=== PATIENT | male | born 1965 | race Caucasian/White ===

== ENCOUNTER 2025-03-26 10:39 | Inpatient (IN) | payer OTHER, SELFPAY ==
[2025-03-26] VITALS (14 sets, daily range): BP systolic 142–189; BP diastolic 100–150; PULSE 2–133
--- NOTE | 2025-03-26 06:54 | ED.GENMED ---
History of Present Illness
General
Chief Complaint: Breathing Problem
Time Seen by Provider: 03/26/25 06:48
History of Present Illness
History of Present Illness:
59-year-old male without any known past medical history, however admits to not being seen by a doctor for several years, presenting for difficulty breathing. Reports symptoms for the past 2 weeks, which worsened last evening. Does report some mild
congestion and cough. No smoking history, however no formal diagnosis of COPD. Reports some chest discomfort with coughing, however no chest pain presently. Denies abdominal pain or vomiting. Denies ever having these symptoms in the past.
Denies fever or sick contacts. Denies any history of PE or recent travel. Does note some sputum production with cough. Denies additional acute medical complaints
Past History
Past History
ED Past Medical History: None
Social History
Tobacco: Smoker
Personal:
Living: with family
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
Phy Exam
Physical Exam
Physical Exam:
General: Well-appearing, no clinical signs of dehydration, nontoxic and in no acute distress
HEENT: protecting airway
Neck: appears supple
CV: tachycardic, regular rhythm
Resp: Tachypneic, increased work of breathing, lungs clear to auscultation bilaterally
Abd: Soft and non-distended, no tenderness to palpation\\
Extremities: No deformities, no swelling
Neuro: alert, no focal neurologic deficit
: deferred
Rectal: deferred
Psych: Normal affect
Skin: Intact
Scores
Heart Failure Risk
Heart Failure Risk Score: Yes
History of Stroke or TIA: No
History of intubation for respiratory distress: No
Heart rate on ED arrival >/= 110: Yes
SaO2 <90% on arrival on room air: No
HR >/=110 during 3min walk test (or too ill to perform test): Yes
ECG has acute ischemic changes: No
Urea >/=12mmol/L (BUN 33.6mg/dL): No
Serum CO2>/=35mmol/L: No
Troponin I or T elevated to IN Level (0.4mg/dL): No
NT-proBNP >/=5,000ng/L (5,000pg/ml): No
HF Risk Score: 2
Admission Status: MEDIUM RISK 9.2% Consider observation or discharge to home with homecare & f/u visit to PCP/Process Lead, or SNF for treatment
Course
Orders/Labs/Results
Orders:
Orders
03/26/25 06:49
Electrocardiogram (*1) Urgent
Reason for Study: Other
Other Reason for Exam: Respiratory Distress
Cardiac Monitoring- Treatment ONCE
EKG- Treatment ONCE
IV Insert/Care/Rem.- Treatment PRN
03/26/25 06:52
CT Chest PE Study Urgent
Comment:
Reason For Exam: tachypneic, tachycardic, hypoxic
03/26/25 06:57
Complete Blood Count/With Diff Urgent
Comprehensive Metabolic Panel Urgent
Glycohemoglobin (HgbA1c) Urgent
NT-proBNP Urgent
TSH Reflex To Free T4 Urgent
Comment: ADD ON
Troponin I Urgent
Venous Blood Gas Urgent
%Oxygen/Room Air: 21
03/26/25 08:34
Furosemide [Lasix] 40 mg IV ONCE ONE
03/26/25 08:40
Bipap [RESP] Urgent
Patient to use own unit?: No
Inspiratory Pressure (cm H2O): 12
Expiratory Pressure (cm H2O): 5
03/26/25 Lunch
Cholesterol Lowering
At Your Request: Full Participation
Fluid Restriction: 1440 mL/day (48 oz)
Cholesterol Lowering: Sodium, 2 Gram
03/26/25 10:21
Echo 2D MMode Color/Doppler Routine
Reason for Study: new heart failure
Consult Cardiology [CARDIOLOGY CONSULT] Routine
Consulting Provider: Garcia Sanchez
Was physician already notified: Yes
03/26/25 10:24
Admit/Transfer Patient As Directed
Co-Sign Provider:
Level of Care: Inpatient admission
Assign to:: IMU- Intermediate Care
Physician / Group: Melia Wilson
Diagnosis: heart failure
Reason for Hospitalization: heart failure
Expected length of stay greater than two midnights?: Yes
ELOS- Estimated Length of Stay in days: 3
I certify the patient meets the requirements for IP care: Yes
03/26/25 10:25
Code Status As Directed
Resuscitation Status: Full Code
Nitroglycerin Ointment [Nitro-Bid] 0.5 inch TOPICAL Q6
PRN Pain Medication Management As Directed
May give lesser potent ordered pain med per pt: Yes
preference::
Protocol:: Medication orders for pain may be administered in a
manner that supports deferring to patient preference
when the pt is:
- Requesting an ordered lesser potent pain medication.
Least to most potent pain medications are defined
as: acetaminophen < NSAID < tramadol < opioids
(morphine, oxycodone, hydromorphone).
- Requesting a lesser dose of the same medication IF
ORDERED.
- Requesting a less intrusive route of administration
if both routes are prescribed by the provider (PO <
IV).
03/26/25 10:28
Add On- LAB Routine
Tests Added?: TSH with reflex to T4
03/26/25 12:20
HF DIETARY CONSULT Routine
HF EDUCATOR CONSULT Routine
Comment:
Activity As Directed
Activity Level: As Tolerated
Intake/ Output As Directed
Frequency: Per unit guidelines
Patient Education As Directed
Type: CHF folder
Comment: give on admission. Document in Interdisciplinary Education record
Sleep Apnea Assessment by RN As Directed
Comment:
Physician Instructions:
Vital Signs As Directed
Frequency: Other
Additional Instructions:: Q12 or per unit guidelines if more frequent.
Weight As Directed
Frequency: Daily
Type of Scale: Standing Scale
Comment: Daily morning weight. If unable to stand, use balanced bed scale.
Weight As Directed
Frequency: Once
Type of Scale: Standing Scale
Comment: Upon Admission. If unable to stand, use balanced bed scale.
Pulse Ox/cont/shift [RESP] Routine
Quantity: 1
Special Instructions: Daily pulse oximetry at rest. If greater than 92% at rest also obtain pulse oximetry
while ambulating as tolerated.
DX Deep Vein Thrombosis Video Routine
03/26/25 13:14
PSA, Total - Screen Routine
Troponin I Q6H
03/26/25 16:00
Furosemide [Lasix] 40 mg IV BID AT 0800,1600
03/26/25 19:00
Troponin I Q6H
03/26/25 20:00
Heparin 5,000 units SC Q12
03/27/25 06:00
Basic Metabolic Panel IN AM
Cardiovascular Evaluation IN AM
Complete Blood Count/No Diff IN AM
Magnesium IN AM
03/28/25 06:00
Basic Metabolic Panel IN AM
03/29/25 06:00
Basic Metabolic Panel IN AM
Abnormal Lab Results
03/26/25
06:57
RBC 4.46 L 10^6/uL
(4.70-6.10)
Hgb 12.9 L g/dL
(13.0-18.0)
Hct 37.2 L %
(39.0-52.0)
Abs Immat Gran (auto) 0.1 H 10^3/uL
(0-0.05)
Immature Gran % 1.0 H %
(0-0.5)
Lymphocytes % 19.9 L %
(20.5-51.1)
VBG pO2 56 H mmHg
(30-50)
Chloride 113 H mmol/L
(98-107)
BUN 26 H mg/dl
(9-20)
Creatinine 1.5 H mg/dL
(0.7-1.3)
Glucose 139 H mg/dl
(70-99)
Hemoglobin A1c 7.0 H %
(4.0-5.6)
Alkaline Phosphatase 338 H U/L
(38-126)
Troponin I 0.071 H* ng/ml
03/26/25 06:57
03/26/25 06:57
Vital Signs
Initial and Last Documented VS:
Initial Vital Signs
Temp Pulse Resp BP Pulse Ox
97.5 F 126 24 170/117 95
03/26/25 06:42 03/26/25 06:42 03/26/25 06:42 03/26/25 06:42 03/26/25 06:42
Last Documented Vital Signs
Temp Pulse Resp BP Pulse Ox
98.1 F 118 31 164/118 95
03/26/25 12:36 03/26/25 12:58 03/26/25 12:30 03/26/25 12:58 03/26/25 13:31
MDM/Problems Addressed
MDM/Problems Addressed:
59-year-old male presenting to the emergency department for 2 weeks of shortness of breath. Vital signs on arrival significant for tachypnea and tachycardia.
On exam, patient is in mild respiratory distress, increased work of breathing. However lungs are clear to auscultation, relatively unremarkable lung examination. Given presenting vital signs, work of breathing, with lung exam, concern for possible
PE. Additional diagnostic considerations include COPD given smoking history, however no audible wheezing. Pneumonia is also consideration, does note productive cough. However presently afebrile, no focal abnormal lung sounds. ACS is a
consideration, EKG does show some lateral T wave inversions, no prior for comparison. However no STEMI criteria. Patient is also hypertensive, so aortic pathology is a consideration, however no present chest pain. Plan for laboratory analysis,
VBG, CT PE imaging. Patient placed on supplemental O2 for comfort
08:35 -patient's BNP is elevated. Troponin is also slightly elevated, suspect ischemic demand from congestive heart failure. CT is consistent with CHF, with pleural effusions. No sign of PE. Also incidental mention of bony abnormality to the
spine, concerning for metastatic disease, possibly from prostate cancer. Did discuss these results with patient, does note that he has had difficulty with urination. Patient will require admission for new onset CHF. Remains tachypneic and
tachycardic. Will start patient on BiPAP and administer Lasix.
*EKG
Interpreted by ED Provider?: Yes
EKG Intrepretation Date: 03/26/25
EKG Intrepretation Time: 06:57
Interpretation: abnormal
Heart Rate: 128
Rate: normal
Rhythm: sinus
Jenner: normal axis
Interval: normal interval
QRS Pattern: normal QRS
Ischemia: T-wave inversion
*Critical Care Note
Total Time (30-74mins, 75-104mins- exclusive of procedures): 40
comment:
The high probability of a clinically significant, sudden or life threatening deterioration of the cardiorespiratory system(s) required my full and direct attention, intervention and personal management. The aggregate critical care time was 40
minutes. This time is in addition to time spent performing reported procedures but includes the following:
[x] Data Review and interpretation
[x] Patient assessment and monitoring of vital signs
[x] Documentation
[x] Medication orders and management
ED Attending Note
-
Portions of this chart may have been created with voice recognition software.� Occasional wrong word or��sound alike� substitutions may have occurred due to the inherent limitations of voice recognition software.
Discharge Plan
Departure
Patient Disposition: Admit
Date of Disposition: 03/26/25
Time of Disposition: 08:45
Presentation/result/management discussed w/ accepting MD/DO: Hospitalist
Condition: Fair
Discharge Problem:
New onset of congestive heart failure, Breath shortness
Interventions
Interventions:
*Risk Screen - Suicide Last Done: 03/26/25 06:42
*General Assessment Last Done: 03/26/25 10:53
*Neglect/Abuse Screening Last Done: 03/26/25 10:54
*ED- Fall Risk Assessment Last Done: 03/26/25 10:53
*ED COVID-19 Vaccine History Last Done: 03/26/25 10:53
*Nursing Disposition Last Done: 03/26/25 12:28
ED- Cardiac Assessment Last Done: 03/26/25 07:05
ED- Pulmonary Assessment Last Done: 03/26/25 07:05
Discharge Date and Time
Discharge Date/Time: 03/26/25 12:28
[2025-03-26 07:08] LABS: Venous Blood Gas B.E. -3.4 mmol/L (-4 to +4); Venous Blood Gas HCO3 22.7 mmol/L (22-27); Venous Blood Gas O2 Sat % 87.2 %; Venous Blood Gas pCO2 44 mmHg (35-48); Venous Blood Gas pH 7.32 (7.32-7.43); Venous Blood Gas pO2 56 mmHg (30-50)
[2025-03-26 07:17] LABS: % Basophils 0.7 % (0-2); % Lymphocytes 19.9 % (20.5-51.1); % Neutrophils 69.4 % (42.2-75.2); Absolute Basophils 0.1 10^3/uL (0-0.2); Absolute Eosinophils 0.2 10^3/uL (0-0.7); Absolute Immature Granulocytes 0.1 10^3/uL (0-0.05); Absolute Lymphocytes 1.4 10^3/uL (1.2-3.4); Absolute Monocytes 0.4 10^3/uL (0.1-0.6); Absolute Neutrophils 4.9 10^3/uL (1.4-6.5); Hematocrit 37.2 % (39.0-52.0); Hemoglobin 12.9 g/dL (13.0-18.0); Mean Corp Hgb Conc. 34.7 g/dL (33.0-37.0); Mean Corpuscular Hgb 28.9 pg (27.0-31.0); Mean Corpuscular Volume 83.4 fL (80.0-94.0); Nucleated Red Blood Cells % 0 % (-); Platelet Count 213 10^3/uL (130-400); Red Blood Cell Count 4.46 10^6/uL (4.70-6.10); Red Cell Dist. Width 13.5 % (11.5-14.5)
[2025-03-26 07:22] LABS: ALT (SGPT) 25 U/L (0-50); AST (SGOT) 51 U/L (17-59); Albumin 4.4 g/dl (3.5-5.0); Alkaline Phosphatase 338 U/L (38-126); Blood Urea Nitrogen 26 mg/dl (9-20); Calcium 9.4 mg/dl (8.4-10.2); Carbon Dioxide 23 mmol/L (22-30); Chloride 113 mmol/L (98-107); Glucose 139 mg/dl (70-99); Potassium 4.4 mmol/L (3.5-5.1); Sodium 145 mmol/L (135-145); Total Bilirubin 0.7 mg/dl (0.2-1.3); Total Protein 7.3 g/dl (6.3-8.2); eGFR 52.97
[2025-03-26 07:37] LABS: NT-proBNP 1120 pg/ml; Troponin I 0.071 ng/ml
[2025-03-26] MEDS: LASIX 40 MG IV ×2 (08:46→16:05)
--- NOTE | 2025-03-26 09:53 | HPS.HSE ---
Addendum entered and electronically signed by Melia Wilson MD 03/26/25 10:37:
Troponin Elevation, likely non ischemic myocardial injury
-trend Troponin
TTE and Cardiology eval as below
Original Note:
Family Physician
-
Family Physician: * NONE
Chief Complaint
-
shortness of breath
History of Present Illness
Mr. Edward Cabezas is a 59 yo man without known medical history, prior tobacco use, presents to the ER with shortness of breath.
Patient states over past two weeks has had intermittent shortness of breath mainly when laying down/sleeping. No increase swelling. No increased cough/congestion. He denies chest pain.
He has already urinated a good amount and is feeling better.
No recent fevers/chills. No abdominal pain. No nausea/vomiting/diarrhea.
He takes no medications, hasn't followed up with a doctor in several years.
Medical History
Past Medical History
Past Medical History: Reports None
Past Surgical History: Reports None
Social History
Tobacco: Former Smoker (quit 8 years ago )
Alcohol: Occasional
Family History
Family History: Not pertinent
Allergies / Home Medications
Allergies reflects when Allergies were last updated in [facility].
Home Medications with original date entered in [facility]
Allergy/Medication List:
Allergies
Allergy/AdvReac Type Severity Reaction Status Date / Time
No Known Allergies Allergy Verified 03/26/25 06:42
Home Medications
No Meds [No Current Medications] 03/26/25
Review of Systems
-
History Source: Patient
A 12 point ROS was completed and negative except as noted: Yes
Physical Exam
Vital Signs
Vital Signs
Temp Pulse Resp BP Pulse Ox
97.5 F 118 18 189/125 98
03/26/25 06:42 03/26/25 09:30 03/26/25 09:30 03/26/25 09:00 03/26/25 09:30
Physical Exam
General: Other (on BiPAP, conversant and in no distress )
HEENT: PERRLA
Respiratory: No Wheezes or Rales
Cardiac: S1/S2 and Tachycardia
GI: Soft and Non Tender
Musculoskeletal: No Edema
Skin: Warm and Dry; No Rash
Neuro: AO x 3
Psych: Calm
Laboratory Results
-
03/26/25 06:57
03/26/25 06:57
Laboratory Results
Total Bilirubin 0.7 mg/dl (0.2-1.3) 03/26/25 06:57
AST 51 U/L (17-59) 03/26/25 06:57
ALT 25 U/L (0-50) 03/26/25 06:57
Alkaline Phosphatase 338 U/L (38-126) H 03/26/25 06:57
Troponin I 0.071 ng/ml H* 03/26/25 06:57
Data Reviewed
-
Diagnostic Radiology: Report Reviewed by me
Lab Data: Labs Reviewed by me
Impression/Plan
-
Mr. Edward Cabezas is a 59 yo man without known medical history, tobacco use, presents to the ER with shortness of breath.
Triage VS: T 97.5, P 126, RR 24, BP 170/117, SpO2 95%
LABS: WBC 7, Hg 12.9, PLT 213, Na 145, K+ 4.4, Cl 113, BUN 26, Cr 1.5, Glucose 139, Trop 0.071, BNP [address]
IMPRESSION:
Examination is negative for pulmonary embolism.
Bilateral pleural effusions. CT findings compatible with predominantly interstitial pulmonary edema pattern, likely on the basis of congestive heart failure.
Dense coronary artery calcifications are present. Please correlate with symptoms of and risk factors for coronary artery disease, with further workup as clinically appropriate..
CT findings highly suggestive of bony metastatic disease, and concern is raised for prostate carcinoma.
Mild to moderate changes of emphysema within the upper lungs.
EKG: sinus tach with occasionaly PVC's, j point elevation
Heart Failure Acute Exacerbation, unknown EF
-s/p Lasix 40mg IV x 1 given in the ER
-admit to IMU
-BiPAP support as needed, try to wean off later today
-continue Lasix 40mg IV BID
-nitro patch, patient hypertensive
-TTE
-add on TSH
-Cardiology consulted
MARSHAL versus CKD
-monitor renal function with diuresis
Hx tobacco use
Abnormal CT scan with finding concern for bony metastatic disease
-will order PSA on today's labs
-discussed briefly with Oncology, when respiratory status stable I will consult IR for biopsy
DVT PPx hep subQ
FULL CODE
76 minutes spent on patient care
--- NOTE | 2025-03-26 09:55 | CM ---
Addendum entered by Sandie Ryan 03/26/25 14:47:
No insurance coverage, MA pending. Spoke to [facility], cost of Entresto 24/26mg BID is $900.99 for 30 day supply, Farxiga 10mg daily is $708.99 for 30 day supply.
Original Note:
CM reviewed chart and met with pt and family bedside in ED.
Lives with , ariadna russo, 5 IVAN, BA on first floor, BR on second
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
No hx VN or SNF
Currently on BiPap.
PCP: [facility] although hasn't seen in several years
Pharmacy: [facility]
Plan: Home pending ongoing medical evaluation, watch for needs.
[2025-03-26] MEDS: NITRO-BID 0.5 INCH TOPICAL ×2 (10:50→17:49)
--- NOTE | 2025-03-26 12:06 | CON.CAR ---
Addendum entered and electronically signed by Aubrey Hess MD 03/26/25 13:14:
I saw and examined the patient.
The [employer] Supervisor's note was reviewed and I agree with the note.
Comment: 59-year-old man with no significant past medical history who presents for evaluation after several weeks of worsening dyspnea on exertion and orthopnea and was found to be in acute heart failure.
Started on BiPAP in [facility] for increased work of breathing
CTA of the chest was performed to evaluate for pulmonary embolism which identified pulmonary edema and bilateral pleural effusions
Subsequent transthoracic echocardiogram showed severely reduced left ventricular ejection fraction
At the time of my evaluation he appeared comfortable and was warm and well-perfused on exam
Recommend IV Lasix twice daily
Start Entresto for afterload reduction
Plan to add low dose Coreg tomorrow AM when more compensated
Troponin mildly elevated, would trend to peak
If troponin is rising plan to start heparin drip
But at this time suspect this is nonischemic myocardial injury troponin elevation in the setting of acute heart failure
Agree with aspirin and high intensity statin given dense coronary artery calcification seen on CT scan
Reviewed with patient and at bedside that he would likely need left and right heart catheterization next week when more euvolemic
Original Note:
Consultation
Consultation Request
Date/Time Consultation Performed: 03/26/25
Requesting Provider: Dr. Wilson
Performing Provider: Cait Atkins PA-C for Dr. Hess
Reason for Consultation: CHF
Medical History
-
Chief Complaint: SOB
History of Present Illness:
Patient is a 59-year-old male without significant past medical history, however has not seen a doctor in years who presents to the ER for evaluation of shortness of breath. He reports it has been worsening over the last 2 weeks. He reports
symptoms are worse when lying flat, but also notes when ambulating. Denies some chest discomfort with coughing, however otherwise no chest pains. Denies lower extremity edema, abdominal bloating, weight gain. Denies fevers or denies family
history of heart issues. He has never seen a heavy equipment operator/paver. On arrival he is noted to be tachypneic and tachycardic. Was placed on BiPAP. Chest CT without PE, however shows evidence of acute CHF and coronary calcifications noted. Cardiology
consulted for treatment of new heart failure.
PMH:
Former tobacco use
Past Medical History
Past Medical History: Other (in HPI)
Social History
Tobacco: Former Smoker
Alcohol: Occasional
Personal:
Living: With Family
Employment: Employed
Family History
Family History: Reviewed & Not Pertinent
Allergies / Home Medications
Allergy/AdvReac Type Severity Reaction Status Date / Time
No Known Allergies Allergy Verified 03/26/25 06:42
�Medication �Instructions �Recorded �Confirmed �Type
No Meds [No Current Medications] 03/26/25 03/26/25 History
Review of Systems
-
History Source: Patient and Family
All other systems: Negative unless noted
Physical Exam
Vital Signs
Temp Pulse Resp BP Pulse Ox
97.5 F 116 19 159/106 96
03/26/25 06:42 03/26/25 10:50 03/26/25 10:15 03/26/25 10:50 03/26/25 10:15
Lab Results
03/26/25 06:57
03/26/25 06:57
Troponin I 0.071 ng/ml H* 03/26/25 06:57
Saz-H-Euatibxkyzx Pept 1120 pg/ml 03/26/25 06:57
Physical Exam
General: No Apparent Distress, Comfortable and Other (on BIPAP)
HEENT: Normocephalic, Anicteric and Moist Mucous Membranes
Respiratory: Crackles and Non Labored Respirations
Cardiac: S1/S2, Regular Rhythm and Other (tachycardic)
GI: Soft, Non Tender, Non Distended and Normal Bowel Sounds
Musculoskeletal: No Clubbing, No Cyanosis and No Edema
Skin: Warm and Dry
Neuro: AO x 3
Impression / Plan
-
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
Assessment:
Presentation with SOB, orthopnea
Acute CHF, suspected with reduced EF
Hypertensive emergency
Sinus tachycardia
Elevated troponin
Coronary artery calcifications by chest CT
MARSHAL vs CKD
Concern for bony metastatic disease on chest CT, concern for prostate cancer
Former smoker
ECHO 03/26/25: prelim with EF 27%, awaiting official report
Plan:
- Patient presents with symptoms of shortness of breath and orthopnea over the last 2 weeks. On arrival noted to be markedly hypertensive, tachypneic, and tachycardic
- CT of the chest without evidence of PE, however did show dense coronary artery calcifications as well as bilateral pleural effusions and pulmonary edema consistent with acute congestive heart failure. proBNP 1120.
- Already improving status post dose of IV Lasix in ER. Continue diuresis
- Initially requiring BiPAP, continue and wean as able
- CHF education
- Official echo report pending, however prelim with EF 27%. Concern for ischemic cardiomyopathy with dense coronary artery calcifications noted by CT scan. Troponin 0.071, trend to peak. EKG ST with inferior T wave abnormality
- consider addition of IV heparin
- suspect will need cath early next week pending improvement in respiratory status
- presented with hypertensive emergency. currently on nitro paste. will add entresto 24/26mg BID and uptitrate as able. will assess cost to patient. add coreg 3.125mg BID tonight. eventual aldactone/sglt2 inhibitor as BP/Cr/cost allow
- check hgbA1c, CVE, TSH
- work up of bony metastatic findings on CT per primary service, concern for met prostate cancer
- d/w patient and family at bedside
Data Reviewed
-
EKG: Tracing Personally Visualized and interpreted
CT Scan: Report Reviewed by me
Labs: Labs Reviewed by me
Old Records: Reviewed
[2025-03-26] MEDS: NITRO-BID TOPICAL (12:50)
[2025-03-26] MEDS: ENTRESTO 24 MG/26 MG 1 TAB PO ×2 (12:58→20:05)
[2025-03-26] MEDS: LOW STRENGTH ASPIRIN 324 MG PO (12:59)
--- NOTE | 2025-03-26 13:30 | PTCARENOTE ---
Received patient from the ED into room 3341. Patient aaox3. Presented on BiPAP with RT but switched to midflow NC shortly after settled in bed. Pt reports feeling much better than on arrival to the ED. Pt does have fine crackles at his bases. On
monitor, pt ST, HR 110s-120s. Nitro paste on R chest administered by ED. Patient educated about heart failure, see flowsheet. Pt verbalised understanding. Pt continent of b/b, able to stand at the bedside to use urinal himself. Skin intact but has
MASD in groin. Will order desinex per nursing protocol. Ordered labs sent. Assessment, care and VS as charted.
[2025-03-26 13:58] LABS: Troponin I 0.076 ng/ml
[2025-03-26 17:44] LABS: TSH Reflex To Free T4 1.43 uIU/ml (0.47-4.68)
[2025-03-26] MEDS: LIPITOR 40 MG PO (17:48)
[2025-03-26 20:03] LABS: Troponin I 0.087 ng/ml
[2025-03-26] MEDS: DESENEX/MITRAZOL/ZEASORB 1 APPLIC TOPICAL (20:03)
[2025-03-26] MEDS: HEPARIN 5000 UNITS SC (20:04)
--- NOTE | 2025-03-26 22:07 | PTCARENOTE ---
Pt received at beginning of shift resting in bed. AAO3. Denies pain or discomfort. Slightly hypertensive BP 150-103 at beginning of shift. HR ST on CM. HR elevated further up to 130's when pt stands at bedside to use urinal. Asymptomatic. Afebrile.
RA POX 94%. Received HS meds. No edema noted. Pt denies need for Desenex to groin for MASD. Pt states he has had a 'red' groin all his life and denies pain or itch. Rest of assessment as documented. Turns self in bed. Call caraballo within reach. Will
continue to monitor.
--- NOTE | 2025-03-26 22:23 | PTCARENOTE ---
Pt placed back on 2L MF since desatting into the mid 80's while asleep. Current POX 92%.
[2025-03-27] VITALS (9 sets, daily range): BP systolic 117–142; BP diastolic 77–94; BMI 26.5; BMI 26.7
[2025-03-27] MEDS: NITRO-BID 0.5 INCH TOPICAL ×4 (00:01→17:23)
[2025-03-27 03:48] LABS: Hematocrit 36.9 % (39.0-52.0); Hemoglobin 12.8 g/dL (13.0-18.0); Mean Corp Hgb Conc. 34.7 g/dL (33.0-37.0); Mean Corpuscular Hgb 28.6 pg (27.0-31.0); Mean Corpuscular Volume 82.4 fL (80.0-94.0); Mean Platelet Volume 9.3 fL (7.4-10.4); Platelet Count 207 10^3/uL (130-400); Red Blood Cell Count 4.48 10^6/uL (4.70-6.10); Red Cell Dist. Width 13.4 % (11.5-14.5); White Blood Cell Count 7.1 10^3/uL (4.8-10.8)
[2025-03-27 04:10] LABS: Blood Urea Nitrogen 27 mg/dl (9-20); Calcium 9.4 mg/dl (8.4-10.2); Carbon Dioxide 20 mmol/L (22-30); Chloride 111 mmol/L (98-107); Estimated Creatinine Clearance 57 ml/min; Glucose 123 mg/dl (70-99); HDL Cholesterol 41 mg/dl; LDL Cholesterol, Calculated 165 mg/dl; Magnesium 1.9 mg/dl (1.6-2.3); Potassium 4.2 mmol/L (3.5-5.1); Sodium 142 mmol/L (135-145); Total Cholesterol 247 mg/dl (50-199); Triglyceride 208 mg/dl (10-149); Very Low Density Lipoprotein 41 mg/dl (0-30); eGFR 52.97
--- NOTE | 2025-03-27 08:05 | W.PN.HOSP.TC ---
Today's Communication/Plan
-
appreciate Cardiology, Oncology
Diuresis
Will need cath next week
aspirin/statin
Coreg, Entresto
OK for transfer to telemetry
Assessment / Plan
Assessment / Plan
Mr. Edward Cabezas is a 59 yo man without known medical history, tobacco use, presents to the ER with shortness of breath.
CHEST CT
IMPRESSION:
Examination is negative for pulmonary embolism.
Bilateral pleural effusions. CT findings compatible with predominantly interstitial pulmonary edema pattern, likely on the basis of congestive heart failure.
Dense coronary artery calcifications are present. Please correlate with symptoms of and risk factors for coronary artery disease, with further workup as clinically appropriate..
CT findings highly suggestive of bony metastatic disease, and concern is raised for prostate carcinoma.
Mild to moderate changes of emphysema within the upper lungs.
TTE 03/26/25
CONCLUSIONS
Left ventricle is mildly dilated. Normal wall thickness. Severely reduced
left ventricular systolic function. Global hypokinesis. LV ejection fraction
is 27% by Qureshi's method of discs. Stage III diastolic dysfunction suggestive
of restrictive filling pattern and increased filling pressures.
Normal right ventricular size and function.
Mild to moderate mitral regurgitation.
Small pericardial effusion.
Heart Failure reduced ejection fraction, acute exacerbation; new diagnosis
-BiPAP applied in ER, now off
-admitted to IMU
-O2 support as needed - patient on room air, OK for transfer to telemetry
-continue Lasix 40mg IV BID
-TTE results above
-appreciate Cardiology
-new start Coreg, Entresto
-nitro patch
Coronary artery calcifications
-new start aspirin/statin
-cath next week
MARSHAL versus CKD
-monitor renal function with diuresis
Hx tobacco use
Abnormal CT scan with finding concern for bony metastatic disease
Significantly elevated PSA
-patient aware of this diagnosis of prostate cancer
-formal Oncology consult
DVT PPx hep subQ
FULL CODE
51 minutes spent on patient care
Anticipated Discharge: > 48 hours
Subjective/Interval History
-
Date of Service: March 27, 2025
breathing much improved
Objective Data
-
Labs:
Laboratory Results
03/27/25
03:04
WBC 7.1
Hgb 12.8 L
Hct 36.9 L
Plt Count 207
Sodium 142
Potassium 4.2
Chloride 111 H
Carbon Dioxide 20 L
BUN 27 H
Creatinine 1.5 H
Glucose 123 H
Calcium 9.4
Vital Signs:
Vital Signs
Temp Pulse Resp BP Pulse Ox
98.5 F 112 20 135/91 95
03/27/25 07:22 03/27/25 06:03 03/27/25 06:00 03/27/25 06:03 03/27/25 06:00
I&O
03/26/25 03/27/25 03/28/25
06:59 06:59 06:59
Intake Total 1360 / 1360
Output Total 3425 / 3425
Balance -2064 / -2064
Review of Systems
-
History Source: Patient
All other systems: Reviewed and negative
Physical Exam
-
General: No Apparent Distress
HEENT: PERRLA
Respiratory: Clear to Auscultation; Negative Wheezes
Cardiac: Regular Rhythm and S1/S2
GI: Soft and Nontender
Musculoskeletal: No Edema
Skin: Warm and Dry; Negative Rash
Neuro: AO x 3
Psych: Calm
Data Reviewed
-
Diagnostic Radiology: Report Reviewed by me
Labs: Labs Reviewed by me
[2025-03-27] MEDS: COREG 3.125 MG PO ×2 (08:43→20:18)
[2025-03-27] MEDS: HEPARIN 5000 UNITS SC ×2 (08:44→20:23)
[2025-03-27] MEDS: LASIX 40 MG IV ×2 (08:44→16:11)
[2025-03-27] MEDS: LOW STRENGTH ASPIRIN 81 MG PO (08:44)
[2025-03-27] MEDS: DESENEX/MITRAZOL/ZEASORB TOPICAL ×2 (08:45→20:22)
[2025-03-27] MEDS: ENTRESTO 24 MG/26 MG 1 TAB PO ×2 (08:45→20:22)
--- NOTE | 2025-03-27 11:37 | W.PN.CARDCBS ---
Today's Communication / Plan
-
Continue IV diuresis
Continue goal-directed medical therapy with Entresto, beta-malcolm
Monitor renal function and urine output
Plan for ischemic evaluation tentatively 03/29/2025
Impression / Plan
-
Primary Contracts Manager: none prior to admission, initial consult Dr Aubrey Hess
Assessment:
Presentation with SOB, orthopnea
Acute CHF, suspected with reduced EF
Hypertensive emergency
Sinus tachycardia
Elevated troponin
SVT
Coronary artery calcifications by chest CT
MARSHAL vs CKD
Concern for bony metastatic disease on chest CT, concern for prostate cancer
Former smoker
ECHO 03/26/25: Mildly dilated LV, global hypokinesis EF 27%, G3DD, normal RV, mild to moderate MR, small pericardial effusion
Plan:
- Patient presents with symptoms of shortness of breath and orthopnea over the last 2 weeks. On arrival noted to be markedly hypertensive, tachypneic, and tachycardic
- CT of the chest without evidence of PE, however did show dense coronary artery calcifications as well as bilateral pleural effusions and pulmonary edema consistent with acute congestive heart failure. proBNP 1120.
- Continue IV diuresis with IV Lasix 40 mg twice daily monitor renal function and electrolytes
- Initially requiring BiPAP, off supplemental oxygen
- CHF education
- Concern for ischemic cardiomyopathy with dense coronary artery calcifications noted by CT scan. Troponin peak 0.087. EKG ST with inferior T wave abnormality, no recurrent chest pain, will need ischemic evaluation
-Tolerating entresto 24/26mg BID and uptitrate as able. will assess cost to patient. Tolerating coreg 3.125mg BID tonight. eventual aldactone/sglt2 inhibitor as BP/Cr/cost allow following completion of testing prior to discharge
- check hgbA1c, CVE, TSH
- work up of bony metastatic findings on CT per primary service, concern for met prostate cancer
- d/w patient and hospitalist
Progress Note - Contracts Manager
Subjective
Date of Service: March 27, 2025
Patient seen and examined. No acute events overnight. Patient resting comfortably in bed. Patient denies chest pain, shortness of breath, palpitations, lightheadedness, dizziness, weakness. Patient notes significant improvement in breathing.
Objective
Labs:
03/27/25 03:04
03/27/25 03:04
Labs
Hgb 12.8 g/dL (13.0-18.0) L 03/27/25 03:04
Hct 36.9 % (39.0-52.0) L 03/27/25 03:04
Plt Count 207 10^3/uL (130-400) 03/27/25 03:04
Sodium 142 mmol/L (135-145) 03/27/25 03:04
Potassium 4.2 mmol/L (3.5-5.1) 03/27/25 03:04
BUN 27 mg/dl (9-20) H 03/27/25 03:04
Creatinine 1.5 mg/dL (0.7-1.3) H 03/27/25 03:04
Glucose 123 mg/dl (70-99) H 03/27/25 03:04
Troponins
03/26/25 03/26/25 03/26/25
06:57 13:14 19:15
Troponin I 0.071 H* 0.076 H* 0.087 H*
03/27/25
01:12
Troponin I 0.080 H*
Vital Signs and I&O:
Vital Signs
Temp Pulse Resp BP Pulse Ox
98.1 F 117 20 142/92 94
03/27/25 11:02 03/27/25 08:45 03/27/25 06:00 03/27/25 08:45 03/27/25 09:32
Vital Signs
Temp Pulse Resp BP Pulse Ox
98.1 F 117 20 142/92 94
03/27/25 11:02 03/27/25 08:45 03/27/25 06:00 03/27/25 08:45 03/27/25 09:32
Intake & Output
03/25/25 03/26/25 03/27/25 03/28/25
06:59 06:59 06:59 06:59
Intake Total 1360 / 1360
Output Total 3425 / 3425 350 / 350
Balance -5 / -2065 -350 / -350
Physical Exam
Physical Exam
GENERAL: no acute distress
EYE: sclera anicteric
NECK: Supple, no JVD, no carotid bruit appreciated
ENT: normal nose, moist mucosal membranes
CARDIAC: Regular rate and rhythm, +S1/S2, no murmur, rubs, or gallops
CHEST/PULMONARY: Normal effort, faint bibasilar crackles
ABDOMEN: Soft, without focal tenderness or distention
NEUROLOGICAL: Alert and oriented x3
SKIN: Warm and dry, no rash
PSYCH: Normal and appropriate interaction.
Telemetry shows sinus rhythm; brief SVT lasting roughly 20 minutes without reported symptoms (appears long RP by telemetry)
--- NOTE | 2025-03-27 11:48 | PTCARENOTE ---
Received orders to downgrade pt to TELE; Tele pack placed on Pt; Report given to RN on [facility] - Transport notified, transferred to room 317-1
--- NOTE | 2025-03-27 12:10 | TRANSFER ---
pt arrived to unit at 1145 via stretcher by transport team from IMU, family at the bedside. pt ambulated to bed w/out assist, assessment completed by this nurse, pt placed on tele #[address] pt and family oriented to unit.
[2025-03-27] MEDS: FLUSH (NSS) 2 FLUSH IV (16:12)
[2025-03-27] MEDS: LIPITOR 40 MG PO (17:23)
--- NOTE | 2025-03-27 20:32 | CON.ONC ---
Consultation
-
Date Consultation Requested: 03/27/25
Date Consultation Performed: 03/27/25
Requesting Provider: Melia Wilson MD
Performing Provider: Meeta Dimas MD
Reason for Consultation: Prostate cancer
Impression
Impression
New onset systolic CHF
Hx tobacco use disorder
Significant family history of cancer
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
Plan
Plan
Reviewed NCCN guidelines for initial workup of prostate cancer.
Recommend Urology eval for GE and prostate biopsy - establish diagnosis, obtain tissue for NGS, evaluate and manage urinary symptoms, Lupron.
Start Casodex 50 mg daily in anticipation of Lupron.
Creatinine is borderline for IV contrast with CT. CT A/P with combined contrast if Cr<1.2, otherwise oupt PET scan for staging.
New cancer diagnosis should not be considered a contraindication or limiting factor with respect to any contemplated cardiac interventions. He is newly diagnosed and I estimate life expectancy at >5 years.
Family history is noted. Germline mutation testing as well as somatic mutation testing indicated for outpt setting, may impact systemic therapy.
Thank you for consultation, will follow along with you.
Patient History
History of Present Illness
59-year-old man without known medical history other than tobacco use disorder, quit 8 years ago. He presented to the [facility] ER with a 2-week history of intermittent orthopnea. In the ER he was found to be in respiratory distress and
underwent CTA of chest showing no evidence of pulmonary embolism, but incidentally noting apparent bone metastases in the spine and ribs. PSA was sent and returned significantly elevated at greater than 1000. He is being treated for congestive
heart failure. We are consulted regarding apparent prostate cancer metastatic to bone. Patient admits to urinary symptoms but states these have been going on for some time. He denies bone pain.
Past-Medical/Surgical History
Past Medical History:
Systolic CHF diagnosed this admission, EF 27%
MARSHAL vs CKF
Hx tobacco use disorder
Past Surgical History:
None
Family History:
Paternal grandmother: Lung cancer (non-smoker)
Paternal uncle: Lung cancer (smoker)
Maternal grandfather: Metastatic prostate cancer
Maternal uncle: Kidney cancer
Social:
, lives with . Niya and son Ahsan White are present for consultation.
History of tobacco use disorder, quit 8 years ago
Works in [employer]
Patient Medication
�Medication �Instructions �Recorded �Confirmed �Last Taken �Type
No Meds [No Current Medications] 03/26/25 03/26/25 Unknown History
Active Medications
Generic Name Dose Route Start Last Admin
Trade Name Freq PRN Reason Stop Dose Admin
Aspirin 81 mg 03/27/25 08:00 03/27/25 08:44
Aspirin 81 Mg Chewable Tablet PO 04/24/25 07:59 81 mg
DAILY BARBRA Administration
Atorvastatin Calcium 40 mg 03/26/25 18:00 03/27/25 17:23
Atorvastatin (Lipitor) 40 Mg Tablet PO 04/23/25 17:59 40 mg
QPM BARBRA Administration
Carvedilol 3.125 mg 03/27/25 08:00 03/27/25 20:18
Carvedilol 3.125 Mg Tablet PO 04/24/25 07:59 3.125 mg
BID BARBRA Administration
Furosemide 40 mg 03/26/25 16:00 03/27/25 16:11
Furosemide 40 Mg (10 Mg/Ml) 4 Ml Vial IV 04/23/25 15:59 40 mg
BID AT 0800,1600 BARBRA Administration
Heparin Sodium 5,000 units 03/26/25 20:00 03/27/25 20:23
Heparin 5,000 Units/Ml 1 Ml Vial SC 04/23/25 19:59 5,000 units
Q12 BARBRA Administration
Miconazole Nitrate 0 applic 03/26/25 20:00 03/27/25 20:22
Miconazole Powder Bottle TOPICAL 04/23/25 19:59 Not Given
BID BARBRA
Nitroglycerin 0.5 inch 03/26/25 10:25 03/27/25 17:23
Nitroglycerin 1 Inch/1 Gram Packet TOPICAL 04/23/25 10:24 0.5 inch
Q6 BARBRA Administration
Sacubitril/Valsartan 1 tab 03/26/25 20:00 03/27/25 20:22
Sacubitril 24 Mg/Valsartan 26 Mg (Entresto) Tab PO 04/23/25 19:59 1 tab
BID BARBRA Administration
Sodium Chloride 0 flush 03/26/25 13:00 03/27/25 16:12
Sodium Chloride 0.9% (Flush) Syringe IV 04/23/25 12:59 2 flush
PER PROTOCOL BARBRA Administration
Review of Systems
-
History Source: Patient, Family and Records
Constitutional: Reports No Symptoms
EENT: Reports No Symptoms
Respiratory: Reports Cough and Trouble Breathing
Cardiac: Reports Orthopnea; Denies Chest Pain, Palpitations or Syncope
GI: Reports No Symptoms
: Reports Hesitancy and Other (Nocturia)
Musculoskeletal: Reports No Symptoms
Skin: Reports No Symptoms
Neuro: Reports No Symptoms
Endocrine: Reports No Symptoms
Hematologic/Lymphatic: Reports No Symptoms
Allergy / Immunology: Reports No Symptoms
Psych: Reports No Symptoms
Physical Exam
-
General: Well Developed, Well Nourished and No Apparent Distress
HEENT: Moist Mucous Membranes; Negative Jaundice
Cardiology: Normal Sinus Rhythm, S1 and S2
Pulmonary: Clear; Negative Wheezes or Rales
GI: Soft and Normal Bowel Sounds
Musculoskeletal: No Clubbing, No Cyanosis and No Edema
Extremities: Negative Phlebitic Signs
Neurology: Non Focal and No Lateralizing Symptoms
Skin: Warm and Dry; Negative Rash
Hematologic / Lymphatic: No Lymphadenopathy and No Petechiae
Psych: Calm and Intact Judgement/Insight
Labs
Lab Results
WBC 7.1 10^3/uL (4.8-10.8) 03/27/25 03:04
RBC 4.48 10^6/uL (4.70-6.10) L 03/27/25 03:04
Hgb 12.8 g/dL (13.0-18.0) L 03/27/25 03:04
Hct 36.9 % (39.0-52.0) L 03/27/25 03:04
MCV 82.4 fL (80.0-94.0) 03/27/25 03:04
MCH 28.6 pg (27.0-31.0) 03/27/25 03:04
MCHC 34.7 g/dL (33.0-37.0) 03/27/25 03:04
RDW 13.4 % (11.5-14.5) 03/27/25 03:04
Plt Count 207 10^3/uL (130-400) 03/27/25 03:04
MPV 9.3 fL (7.4-10.4) 03/27/25 03:04
Abs Immat Gran (auto) 0.1 10^3/uL (0-0.05) H 03/26/25 06:57
Absolute Neuts (auto) 4.9 10^3/uL (1.4-6.5) 03/26/25 06:57
Absolute Lymphs (auto) 1.4 10^3/uL (1.2-3.4) 03/26/25 06:57
Absolute Monos (auto) 0.4 10^3/uL (0.1-0.6) 03/26/25 06:57
Absolute Eos (auto) 0.2 10^3/uL (0-0.7) 03/26/25 06:57
Absolute Basos (auto) 0.1 10^3/uL (0-0.2) 03/26/25 06:57
Immature Gran % 1.0 % (0-0.5) H 03/26/25 06:57
Neutrophils % 69.4 % (42.2-75.2) 03/26/25 06:57
Lymphocytes % 19.9 % (20.5-51.1) L 03/26/25 06:57
Monocytes % 6.0 % (1.7-9.3) 03/26/25 06:57
Eosinophils % 3.0 % (0-6) 03/26/25 06:57
Basophils % 0.7 % (0-2) 03/26/25 06:57
Creatinine 1.5 mg/dL (0.7-1.3) H 03/27/25 03:04
Vital Signs
Vital Signs
Temp Pulse Resp BP Pulse Ox
98.1 F 110 18 117/79 94
03/27/25 19:00 03/27/25 20:22 03/27/25 19:00 03/27/25 20:22 03/27/25 19:00
[2025-03-28] MEDS: NITRO-BID 0.5 INCH TOPICAL ×5 (00:17→23:01)
[2025-03-28 03:00] VITALS: BP 107/72
[2025-03-28 03:39] VITALS: BMI 26.4
[2025-03-28 06:36] LABS: Blood Urea Nitrogen 36 mg/dl (9-20); Calcium 9.2 mg/dl (8.4-10.2); Carbon Dioxide 24 mmol/L (22-30); Chloride 107 mmol/L (98-107); Estimated Creatinine Clearance 57 ml/min; Glucose 125 mg/dl (70-99); Magnesium 1.9 mg/dl (1.6-2.3); Potassium 4.2 mmol/L (3.5-5.1); Sodium 143 mmol/L (135-145); eGFR 52.97
[2025-03-28 07:00] VITALS: BP 127/95
[2025-03-28] MEDS: DESENEX/MITRAZOL/ZEASORB TOPICAL ×2 (08:28→20:12)
[2025-03-28] MEDS: COREG 3.125 MG PO (08:28)
[2025-03-28] MEDS: LOW STRENGTH ASPIRIN 81 MG PO (08:28)
[2025-03-28] MEDS: LASIX 40 MG IV (08:28)
[2025-03-28] MEDS: ENTRESTO 24 MG/26 MG 1 TAB PO ×2 (08:28→20:12)
[2025-03-28] MEDS: HEPARIN 5000 UNITS SC ×2 (08:33→20:13)
--- NOTE | 2025-03-28 10:37 | W.PN.HOSP.TC ---
Addendum entered and electronically signed by Melia Wilson MD 03/28/25 14:03:
after discussion with specialists, decision made to proceed with cath tomorrow as patient can receive first line therapy without biopsy
Original Note:
Today's Communication/Plan
-
see plan
Assessment / Plan
Assessment / Plan
Mr. Edward Cabezas is a 59 yo man without known medical history, tobacco use, presents to the ER with shortness of breath found to have new diagnosis HFrEF and incidental finding of metastatic prostate CA.
CHEST CT
IMPRESSION:
Examination is negative for pulmonary embolism.
Bilateral pleural effusions. CT findings compatible with predominantly interstitial pulmonary edema pattern, likely on the basis of congestive heart failure.
Dense coronary artery calcifications are present. Please correlate with symptoms of and risk factors for coronary artery disease, with further workup as clinically appropriate..
CT findings highly suggestive of bony metastatic disease, and concern is raised for prostate carcinoma.
Mild to moderate changes of emphysema within the upper lungs.
TTE 03/26/25
CONCLUSIONS
Left ventricle is mildly dilated. Normal wall thickness. Severely reduced
left ventricular systolic function. Global hypokinesis. LV ejection fraction
is 27% by Qureshi's method of discs. Stage III diastolic dysfunction suggestive
of restrictive filling pattern and increased filling pressures.
Normal right ventricular size and function.
Mild to moderate mitral regurgitation.
Small pericardial effusion.
Heart Failure reduced ejection fraction, acute exacerbation; new diagnosis
Coronary artery calcifications
-BiPAP applied in ER, now off
-admitted to IMU, transferred to tele on 03/27
-patent is now on room air
-continue Lasix 40mg IV BID - further diuresis per Cardiology
-TTE results above
-appreciate Cardiology
-new start Coreg, Entresto
-nitro patch
-patient will need eventual cath. We need to figure out timing and as prostate biopsy recommended by Oncology, although may not be necessary at this point (for 3rd line therapy)
-new start aspirin/statin (would also need to hold aspirin 7 days pre prostate biopsy per Urology)
Abnormal CT scan with finding concern for bony metastatic disease
Significantly elevated PSA - Prostate cancer
-patient aware of this diagnosis of prostate cancer
-formal Oncology consult appreciated
-Urology consult appreciated -
-patient will need PET as outpatient
-pros/cons prostate biopsy (not needed for first line therapy, would need to disrupt anti-PLT regimen and delay cardiac work-up) - Urology discussing plan with Cardiology now
-per Dr. Dimas, anticipate starting Casodex in anticipation of outpatient Lupron
MARSHAL versus CKD
-monitor renal function with diuresis
Hx tobacco use
DVT PPx hep subQ
FULL CODE
51 minutes spent on patient care
Anticipated Discharge: 24 - 48 hours
Subjective/Interval History
-
Date of Service: March 28, 2025
feeling much better today
urinated frequently
Objective Data
-
Labs:
Laboratory Results
03/28/25
05:39
Sodium 143
Potassium 4.2
Chloride 107
Carbon Dioxide 24
BUN 36 H
Creatinine 1.5 H
Glucose 125 H
Calcium 9.2
Vital Signs:
Vital Signs
Temp Pulse Resp BP Pulse Ox
98.5 F 102 17 127/95 96
03/28/25 07:00 03/28/25 07:00 03/28/25 07:00 03/28/25 07:00 03/28/25 08:28
I&O
03/27/25 03/28/25 03/29/25
06:59 06:59 06:59
Intake Total 1360 / 1360 1920 / 1920
Output Total 3425 / 3425 1250 / 1250
Balance -2064 / -2064 670 / 670
Review of Systems
-
History Source: Patient
All other systems: Reviewed and negative
Physical Exam
-
General: No Apparent Distress
HEENT: PERRLA
Respiratory: Clear to Auscultation; Negative Wheezes
Cardiac: Regular Rhythm and S1/S2
GI: Soft and Nontender
Musculoskeletal: No Edema
Skin: Warm and Dry; Negative Rash
Neuro: AO x 3
Psych: Calm
Data Reviewed
-
Diagnostic Radiology: Report Reviewed by me
Labs: Labs Reviewed by me
[2025-03-28 11:00] VITALS: BP 114/79
--- NOTE | 2025-03-28 11:25 | CON.MD ---
Consultation - Medical
-
see dictated note
pt without regular med care
presented with SOB- elevated troponin
had CT of chest as part of eval- + for bony mets- subsequent psa 1000
rectal exam performed- hard abnl prostate
spoke with med team/cardiology and oncology
diagnosis of prostate cancer is certain with these findings
given cardiac eval and need for fairly urgent procedures- can not ideally hold blood thinners including asa
all parties are comfortable with proceeding with acp treatment in parallel with cardiac eval at this point without biopsy
pt is having some mild hesitancy
no direct role for urology at this time/stage- pt can follow up as outpt after discharge
Consultation
-
Date/Time Consultation Requested: 03/28/25 at 10:30am
Date/Time Consultation Performed: 03/28/25 at 11am
Requesting Provider: dr mcqueen
Performing Provider: dr nicholas
Reason for Consultation: elevated psa
[2025-03-28] MEDS: FLOMAX 0.4 MG PO (12:10)
--- NOTE | 2025-03-28 12:20 | W.PN.CARDCBS ---
Today's Communication / Plan
-
N.p.o. after midnight pending left heart catheterization tomorrow
Continue statin, aspirin, beta-malcolm; increase Coreg to 6.25 daily
Decrease Lasix 40 mg IV daily
Monitor renal function electrolytes and output
Impression / Plan
-
Primary General Manager [employer]: none prior to admission, initial consult Dr Aubrey Hess
Assessment:
Presentation with SOB, orthopnea, improving
Acute CHF, suspected with reduced EF, improving
Hypertensive emergency, improving
Sinus tachycardia
Elevated troponin
SVT
Coronary artery calcifications by chest CT
- Reported as dense coronary artery calcifications involving left main and LAD
MARSHAL vs CKD, stable cr
Concern for bony metastatic disease on chest CT, concern for prostate cancer
- Likely diagnosis; Heme/Onc and Urology following
Former smoker
ECHO 03/26/25: Mildly dilated LV, global hypokinesis EF 27%, G3DD, normal RV, mild to moderate MR, small pericardial effusion
Plan:
- Patient presents with symptoms of shortness of breath and orthopnea over the last 2 weeks. On arrival noted to be markedly hypertensive, tachypneic, and tachycardic
- CT of the chest without evidence of PE, however did show dense coronary artery calcifications as well as bilateral pleural effusions and pulmonary edema consistent with acute congestive heart failure. proBNP 1120.
- Continue IV diuresis with IV Lasix 40 mg; reduce to daily and monitor renal function electrolytes
- Initially requiring BiPAP, off supplemental oxygen
- CHF education
- Concern for ischemic cardiomyopathy with dense coronary artery calcifications noted by CT scan. Troponin peak 0.087. EKG ST with inferior T wave abnormality, no recurrent chest pain, will need ischemic evaluation
-Tolerating entresto 24/26mg BID and uptitrate as able. will assess cost to patient. Tolerating coreg 3.125mg BID, will increase to 6.25 twice daily starting today. eventual aldactone/sglt2 inhibitor as BP/Cr/cost allow following completion of
testing prior to discharge
- work up of bony metastatic findings on CT per primary service, concern for met prostate cancer. And reviewed by hematology oncology and urology, they feel that it is likely patient does have metastatic prostate cancer. And reviewed by urology,
Dr. Aiken, does not believe that biopsy is necessary at this current juncture for treatment and that treatment empirically for cancer is warranted. Patient's cardiovascular disease takes priority and evaluation
� Patient presented as noted above with evidence of acute heart failure with newly diagnosed cardiomyopathy. Patient has dense coronary calcifications on CT scan making likelihood for coronary disease present. Therefore, patient to benefit from
early ischemic evaluation and possible intervention. Additionally, hematology oncology's note had commented that assessment for prostate cancer should not delay intervention by cardiology. Will continue current medical therapy for now. N.p.o.
after midnight pending left heart catheterization tomorrow.
- d/w patient, hospitalist, urology
Progress Note - General Manager [employer]
Subjective
Date of Service: March 28, 2025
Patient seen and examined's morning. No acute events overnight. Patient resting comfortably in bed. Patient reports improving shortness of breath and near resolution of breathing issues. Patient denies any chest pain, palpitations, or weakness.
Objective
Labs:
03/27/25 03:04
03/28/25 05:39
Labs
Hgb 12.8 g/dL (13.0-18.0) L 03/27/25 03:04
Hct 36.9 % (39.0-52.0) L 03/27/25 03:04
Plt Count 207 10^3/uL (130-400) 03/27/25 03:04
Sodium 143 mmol/L (135-145) 03/28/25 05:39
Potassium 4.2 mmol/L (3.5-5.1) 03/28/25 05:39
BUN 36 mg/dl (9-20) H 03/28/25 05:39
Creatinine 1.5 mg/dL (0.7-1.3) H 03/28/25 05:39
Glucose 125 mg/dl (70-99) H 03/28/25 05:39
Troponins
03/26/25 03/26/25 03/26/25
06:57 13:14 19:15
Troponin I 0.071 H* 0.076 H* 0.087 H*
03/27/25
01:12
Troponin I 0.080 H*
Vital Signs and I&O:
Vital Signs
Temp Pulse Resp BP Pulse Ox
98.4 F 104 18 114/79 97
03/28/25 11:00 03/28/25 11:00 03/28/25 11:00 03/28/25 11:00 03/28/25 11:00
Vital Signs
Temp Pulse Resp BP Pulse Ox
98.4 F 104 18 114/79 97
03/28/25 11:00 03/28/25 11:00 03/28/25 11:00 03/28/25 11:00 03/28/25 11:00
Intake & Output
03/26/25 03/27/25 03/28/25 03/29/25
06:59 06:59 06:59 06:59
Intake Total 1360 / 1360 1920 / 1920
Output Total 3425 / 3425 1250 / 1250
Balance -2064 / -2064 670 / 670
Physical Exam
Physical Exam
GENERAL: no acute distress
EYE: sclera anicteric
NECK: Supple, no JVD, no carotid bruit appreciated
ENT: normal nose, moist mucosal membranes
CARDIAC: Regular rate and rhythm, +S1/S2, no murmur, rubs, or gallops
CHEST/PULMONARY: Normal effort, faint bibasilar crackles
ABDOMEN: Soft, without focal tenderness or distention
NEUROLOGICAL: Alert and oriented x3
SKIN: Warm and dry, no rash
PSYCH: Normal and appropriate interaction.
Telemetry shows sinus rhythm, NSVT
[2025-03-28 15:00] VITALS: BP 125/83
--- NOTE | 2025-03-28 15:57 | PTCARENOTE ---
patient reports urinating frequently being on Lasix. tolerating diet, independent in room, showered, vss, for cardiac cath tomorrow, will continue to monitor.
[2025-03-28] MEDS: LIPITOR 40 MG PO (17:11)
[2025-03-28 19:00] VITALS: BP 115/76
[2025-03-28] MEDS: COREG 6.25 MG PO (20:13)
--- NOTE | 2025-03-28 21:08 | W.PN.UPDATE ---
Update Note
Progress Note Update
Case d/w Dr. Aiken.
Pt would need to be off aspirin and anticoagulants for several days to undergo prostate biopsy. Not feasible given his cardiac issues.
Start Casodex once acute cardiac issues are stabilized, then outpt Lupron +/- anti-androgen.
Outpt PET scan to complete staging as renal function is borderline for CT with IV contrast.
D/w pt's as pt was off floor.
[2025-03-28 23:00] VITALS: BP 101/70
[2025-03-29] VITALS (18 sets, daily range): BP systolic 101–157; BP diastolic 67–94; BMI 26.1
[2025-03-29] MEDS: NITRO-BID 0.5 INCH TOPICAL (05:18)
[2025-03-29 06:56] LABS: Blood Urea Nitrogen 37 mg/dl (9-20); Calcium 9.4 mg/dl (8.4-10.2); Carbon Dioxide 27 mmol/L (22-30); Chloride 106 mmol/L (98-107); Estimated Creatinine Clearance 62 ml/min; Glucose 117 mg/dl (70-99); Potassium 4.1 mmol/L (3.5-5.1); Sodium 143 mmol/L (135-145); eGFR 57.54
[2025-03-29] MEDS: LOW STRENGTH ASPIRIN 81 MG PO (08:33)
[2025-03-29] MEDS: DESENEX/MITRAZOL/ZEASORB TOPICAL ×2 (08:33→20:11)
[2025-03-29] MEDS: COREG 6.25 MG PO ×2 (08:33→20:15)
[2025-03-29 08:34] LABS: Glucose - Point of Care 121 mg/dl (70-99)
--- NOTE | 2025-03-29 08:44 | W.PN.ONC2 ---
Today's Communication / Plan
-
OP follow up will be arranged upon discharge for PET and lupron
Impression
Impression
New onset systolic CHF
Hx tobacco use disorder
Significant family history of cancer
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
Plan
Plan
Urology does not feel that biopsy is necessary for diagnosis since antiplatelet should not be stopped for bx and comfortable making diagnosis of prostate cancer based on PSA, bony mets, and abnormal prostate exam
Start Casodex 50 mg daily in anticipation of Lupron. -discussed with urology via tiger text
Creatinine is borderline for IV contrast with CT. CT A/P with combined contrast if Cr<1.2, otherwise oupt PET scan for staging.
New cancer diagnosis should not be considered a contraindication or limiting factor with respect to any contemplated cardiac interventions. He is newly diagnosed and I estimate life expectancy at >5 years.
Family history is noted. Germline mutation testing as well as somatic mutation testing indicated for outpt setting, may impact systemic therapy.
Subjective/Objective
Subjective
off unit, pt not seen or examined
chart reviewed
Vital Signs:
Vital Signs
Temp Pulse Resp BP Pulse Ox
98.5 F 102 16 120/85 95
03/29/25 07:05 03/29/25 08:33 03/29/25 07:05 03/29/25 08:33 03/29/25 07:05
Lab Results:
Laboratory Data
WBC 7.1 10^3/uL (4.8-10.8) 03/27/25 03:04
Hgb 12.8 g/dL (13.0-18.0) L 03/27/25 03:04
Plt Count 207 10^3/uL (130-400) 03/27/25 03:04
eGFR 57.54 03/29/25 06:11
--- NOTE | 2025-03-29 10:03 | ITS.CL.CATH ---
Score Caller - Catheterization
Cardiac Catheterization
Procedure Report:
LEFT AND RIGHT HEART CATHETERIZATION
Date of Procedure: March 29, 2025
Referring: Sushil Cisneros D.O.
PROCEDURES:
1. Left heart catheterization, coronary angiogram.
2. Moderate sedation.
3. Right heart catheterization.
4. Functional physiologic testing with IFR of proximal to mid LAD
INDICATION: New cardiomyopathy, severely depressed LVEF
ACCESS: Right radial artery, 6Fr. sheath, under US guidance.
HEMODYNAMICS : (mmHg)
RA (m) : 4
RV (s/d,m) : 25/3, 5
PA (s/d, m) : 23/14, 17
PCWP (m) : 8
PA saturation: 66.8% on room air
AO saturation: 96.6% on room air
RA saturation: 66.1% on room air
Cardiac Output : 5.41 L/min
Cardiac Index : 2.58 L/min/m-2
Systemic vascular resistance: 1315 dsc^(-5)
Pulmonary vascular resistance: 1.66 baez unit
AO (s/d) : 113/78
LVEDP : 14
No significant gradient across the aortic valve to suggest aortic stenosis.
CORONARY FINDINGS
Dominance: Right
Left Main Trunk (LMT): Large caliber vessel that gives rise to the LAD and LCx branches and is free of angiographic disease.
Left Anterior Descending Artery (LAD): Large caliber vessel that gives off 3 major diagonal branches as it courses along the anterior inter-ventricular groove before wrapping around the cardiac apex. Proximal to mid LAD spanning across the D1 has
smooth 60% stenosis in mid LAD spanning across D3 takeoff has 50 to 60% stenosis. iFR was performed which was positive at 0.84. Upon IFR pullback, IFR normalized in the proximal RCA proximal to D1 takeoff.
Left Circumflex Artery (LCx): Large caliber vessel that gives off 2 major obtuse marginal (OM) branches as it courses along the atrio-ventricular (AV) groove. Mid left circumflex just distal to OM1 takeoff has diffuse 50% stenosis. Otherwise
there is mild diffuse atherosclerotic plaque.
Right Coronary Artery (RCA): Large caliber dominant vessel that gives rise to the posterior descending artery (RPDA) and postero-lateral ventricular (RPLV) branches distally. There is 100% chronic total occlusion in the mid RCA with [id number]
collaterals.
HEMODYNAMIC ASSESSMENT OF THE PROXIMAL TO MID LAD WITH A VOLCANO OMNI WIRE: The origin of the left coronary artery was cannulated with a 6 Fr EBU 3.5 guide catheter. Intravenous heparin was administered and the ACT was followed during the
procedure. Two hundred micrograms of intracoronary nitroglycerin was given through the guide catheter. A [place] Omni wire was advanced to the guide catheter tip and normalized just outside the guide catheter. The Omni wire was then carefully
manipulated across the stenosis in the proximal to mid LAD with the iFR below the ischemic threshold serially measuring 0.84 x 3. The Omni wire was then pulled back to the guide catheter where the Pd/Pa measured 1.0 confirming no baseline drift in
pressure readings
SEDATION: 27 minutes of procedural sedation was utilized. IV Midazolam and IV Fentanyl were administered. An independent expert medical writer was present to assist with and help manage the patient's level of consciousness and physiologic status.
RADIATION SUMMARY: Fluoro Time (min): 7.0, Dose (mGy): 618.65, DAP (Gy.cm2) : 46.2
Closure Device: There were no immediate intra-procedural complications. The sheath was pulled in the civil laboratory technician and a vascular-band applied to the right wrist for radial artery hemostasis using the patent hemostasis technique.
CONCLUSIONS
1. Significant multivessel coronary artery disease including iFR positive proximal to mid LAD (IFR 0.84)
2. Normal right and left-sided filling pressures with normal cardiac output.
RECOMMENDATIONS
1. Wean radial band per protocol. Monitor right hand perfusion and for bleeding from the radial site following removal of the vascular-band following trans-radial access.
2. 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
3. Continue aggressive medical therapy and risk factor modification for secondary CAD prevention.
4. Hydrate with normal saline to mitigate the risk of contrast-induced acute kidney injury.
5. Eventual referral for outpatient cardiac rehab.
Copy to: Sushil Cisneros D.O.
Jammie Weber MD, FACC, [facility]
[2025-03-29 11:08] LABS: ACT-LR - POC 216 Seconds (116-155)
[2025-03-29 11:22] LABS: ACT-LR - POC 313 Seconds (116-155)
--- NOTE | 2025-03-29 11:52 | CM ---
Patient was unavailable this am
patient for cardiac cath
PLAN: CM to continue to follow for dispo planning/needs
--- NOTE | 2025-03-29 11:54 | PTCARENOTE ---
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 no c/o cp. right radial R band intact, distal pulse palpable , o2 sat 97%, right fem vein sheath intact, infusing NSS, distal pulse palpable. instructed patient on post cath orders, verbalizes
understanding. Lottie CVPA in room talking with patient. patient6 is oriented to call caraballo, verbalizes understanding.
[2025-03-29 12:46] LABS: ACT-LR - POC 266 Seconds (116-155)
--- NOTE | 2025-03-29 12:48 | CONSULT.CT ---
Addendum entered and electronically signed by Buddy Cabezas MD 03/29/25 15:37:
CARDIAC SURGERY ATTENDING:
It was my pleasure to evaluate Mr. Edward Cabezas. He is a very pleasant 59-year-old gentleman who presented to with 2 weeks of increased shortness of breath and orthopnea. He ruled in for a NSTEMI. He had moderate bilateral effusions on CT.
There was some concern for bony metastatic disease and prostate CA. Oncology evaluated the patient, and deemed that he had likely greater than 5-year survival. He was taken for cardiac catheterization given his acute (questionable chronic
component) heart failure with reduced LVEF.
His right coronary is obstructed. However, there are very minimal collaterals to his inferior wall. The vessels that are visible appear quite diminutive in size and are potentially not targets for surgical bypass. His circumflex artery has no
significant disease. His LAD has scattered disease that is IFR positive.
This patient has several options including 1) traditional CABG with grafts to his LAD and potentially grafting of his posterior vessel should be larger than anticipated, 2) MIDCAB/robotic CABG with GARCIA to LAD, and 3) PCI/stenting of his LAD. The
ideal treatment strategy will require multidisciplinary consensus.
Will continue to follow.
Thank you.
Buddy Cabezas MD
[phone]
Original Note:
Consultation
-
Date/Time Consultation Requested: 03/29/25
Date/Time Consultation Performed: 03/29/25 1300
Requesting Provider: Dr. Jammie Weber MD
Performing Provider: Lottie Conway PA-C
Reason for Consultation: Evaluation for coronary artery revascularization
Patient History
Physicians
Family Physician: None: Saw random physicians at [facility] in the past
Outpatient Tank Processor: None
Inpatient Tank Processor: Dr. Aubrey Hess MD.
History of Present Illness
Patient is an extremely pleasant 59-year-old male with a past medical history significant for former tobacco abuse, quit 8 years ago (smoked 1-1 and half packs per day times roughly 40 years), who presented to [facility] emergency
department with 2 weeks of increasing SOB, and orthopnea.
Upon further workup blood work revealed positive troponin's with peak troponin of 0.087 ruling the patient in for a NSTEMI. CT of the chest to rule out PE revealed no pulmonary embolism, moderate bilateral pleural effusions, and concern for bony
metastatic disease via prostate cancer. Please see report below:
There are patchy areas of sclerosis seen within the visualized lower cervical and thoracic spine. For example, there is nodular increased density seen within the central T11 vertebral body, there are patchy areas of sclerosis seen involving the
T10, T9, and T8 as well as within the lower cervical spine. There are areas of sclerosis involving ribs as well, most prominently involving the left posterolateral and lateral fourth rib.
These findings are almost certainly represent bony metastatic disease, and prostate carcinoma would be the leading consideration.
Patient was admitted for further workup. Urology and hematology/oncology were consulted. Further testing via echocardiogram revealed a reduced left ventricular ejection fraction with EF of 27%, mild to moderate MR, no /AI, normal tricuspid valve
(right atrial pressures not available), normal pulmonary valve, and small pericardial effusion. ( LVSD 54, LVDD 62).
Patient was being treated by cardiology for acute heart failure with reduced EF and was diuresed with IV Lasix. Patient was kept n.p.o. after midnight and taken to the [facility] on Saturday morning 03/29/2025. Please see Dr. Weber's full dictation
for complete details, reptort is not yet avaiable. Patient has at least multivessel coronary artery disease with disease to the LAD and RCA.
CT surgery was consulted for coronary artery revascularization evaluation. Patient also has acute kidney injury (Questionable if there is a chronic component), with creatinine of 1.5.
Past Medical History
Past Medical History: Other
Former tobacco abuse, quit 8 years ago (smoked 1-1/2 packs per day times roughly 40 years
Past Surgical History
Past Surgical History: None
Dental History
Noncontributory
Family History
Mother: Still Living (80 years old, suffers with COPD)
Father: at Age (57) and Cause of (Lung cancer)
Family Medical History: Other (No family history of coronary artery disease)
Social History
Alcohol: Occasional (1-2 beers per week)
Drug: None
Tobacco: Former Smoker (Quit 8 years ago. Prior to that smoked 1-1/2 PPD x roughly 40 years)
Personal:
Living: With Spouse (Has 2 children)
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
Allergies
Allergy/AdvReac Type Severity Reaction Status Date / Time
No Known Allergies Allergy Verified 03/26/25 06:42
Home Medications
�Medication �Instructions �Recorded �Confirmed �Type
No Meds [No Current Medications] 03/26/25 03/26/25 History
Review of Systems
-
History Source: Patient
General: Reports Fatigue; Denies Fever, Weight Gain or Weight Loss
HEENT: Denies Visual Changes, Dysphagia, Hoarseness or Sore Throat
Respiratory: Reports SOB and FERNÁNDEZ; Denies Cough or Asthma
Cardiac: Reports Other (Orthopnea); Denies Chest Pain, CAD, Palpitations, Nausea, Vomiting or Edema
Abdomen/GI: Denies Abdominal Pain, Reflux, Nausea, Vomiting, BRBPR, Black Stools or Ulcers
: Reports Frequency and Nocturia (4-5 times per night); Denies Dysuria, Incontinence, Urgency or Hematuria
Musculoskeletal: Reports Myalgias and Arthralgias; Denies Joint Pain or Edema
Skin: Denies Itching or Rash
Neurological: Denies CVA, TIA, Headaches, Syncope, Dizzy, Numbness or Seizures
Vascular: Denies Claudication or PVD
Physical Exam
Vital Signs
Temp 98.5 F 03/29/25 11:47
Temp route: Oral 03/29/25 11:47
Pulse 56 03/29/25 11:06
Rhythm: Normal sinus rhythm 03/29/25 12:07
With- Normal sinus rhythm 03/28/25 20:30
Resp Rate 20 03/29/25 11:47
Blood pressure 157/67 03/29/25 11:06
Blood pressure extremity used: Left upper arm 03/29/25 11:47
Position: Lying 03/29/25 11:47
MAP (cuff-Mihai Monitor) 107 03/27/25 08:00
SaO2 97 03/29/25 12:07
Nasal Cannula flow liters per minute 2 03/26/25 14:55
Oxygen Mode of Delivery Room air 03/29/25 12:07
Acceptable pain level during hospitalization? 0 03/26/25 06:42
Can the patient verbally communicate their pain? Yes 03/29/25 12:07
Pain scale ratin 03/26/25 13:21
Actual Weight 192 lb 6.4 oz 03/29/25 05:09
Body Mass Index (BMI) 26.1 03/29/25 05:09
Labs
03/27/25 03:04
03/29/25 06:11
Hemoglobin A1c 7.0 % (4.0-5.6) H 03/27/25 03:04
Troponin I 0.080 ng/ml H* 03/27/25 01:12
Qua-X-Pteylomkwae Pept 1120 pg/ml 03/26/25 06:57
Exam
General: Well Developed, Well Nourished and No Apparent Distress
HEENT: Normocephalic, Atraumatic, PERRLA and EOMI
Neck: Trachea Midline; Negative Carotid Bruit
Respiratory: Clear (Throughout anterior chaudhary); Negative Wheezes, Crackles, Rhonchi or Accessory Muscle Use
Cardiac: S1/S2 and Regular Rhythm; Negative Murmur, Rub or Gallop
GI: Soft, Non Tender, Non Distended and Other (Bowel sounds diminished)
Rectal: Deferred by Provider
Skin: Warm and Dry; Negative Rash
Neuro: AO x 3, No Motor Deficits and CN X-XII Intact
Extremities: Negative Upper Level Edema, Lower Level Edema, Upper Level Cyanosis, Lower Level Cyanosis, Upper Level Clubbing or Lower Level Clubbing
Psych: Calm
Assessment / Plan
-
Assessment:
59-year-old male with PMA significant for former tobacco abuse ( 1-2 PPD x 40 yrs, quit 8 yrs ago)
Now with newly diagnosed:
Multivessel coronary artery disease
Acute heart failure with reduced ejection fraction of 27%
Moderate bilateral pleural effusions (right greater than left)
Acute kidney injury versus chronic kidney disease (creatinine 1.5)
CT scan with bony metastatic disease concerning for prostate cancer, PSA 1050
Mild to Moderate MR
Newly diagnosed noninsulin-dependent diabetes mellitus with hemoglobin A1c of 7.0
Hypertensive emergency upon admission
VBG with Po2 56
Plan:
Patient's case will be discussed with attending physician
Routine preoperative cardiothoracic surgery orders will be initiated.
STS risk stratification will be calculated when all data is obtained and available.
Further details will be discussed after attending physicians full review.
[2025-03-29] MEDS: LASIX 40 MG PO (13:25)
[2025-03-29] MEDS: ENTRESTO 24 MG/26 MG 1 TAB PO ×2 (13:25→20:15)
[2025-03-29] MEDS: FLOMAX 0.4 MG PO (13:25)
[2025-03-29] MEDS: CASODEX 50 MG PO (13:26)
[2025-03-29] MEDS: HEPARIN SC ×2 (13:28→20:14)
[2025-03-29] MEDS: NITRO-BID TOPICAL (13:31)
[2025-03-29 13:39] LABS: ACT-LR - POC 199 Seconds (116-155)
[2025-03-29 14:35] LABS: INR 1.24; PT 15.9 Sec (11.4-14.6)
[2025-03-29 14:37] LABS: APTT 107.2 Sec (23.4-35.0)
--- NOTE | 2025-03-29 15:40 | W.PN.HOSP.TC ---
Today's Communication/Plan
-
Assessment / Plan
Assessment / Plan
NAD
Scleral Anicteric
MMM
No JVD
CTABL
RRR, S1/S2
Soft, NT, ND, BS+
Warm, Dry
Right wrist without hematoma, right groin without hematoma
AAOx3
Calm
Heart Failure reduced ejection fraction, acute exacerbation; new diagnosis
Coronary artery calcifications
-BiPAP applied in ER, now off
-admitted to IMU, transferred to tele on 03/27
-patent is now on room air
-continue Lasix 40mg IV BID - further diuresis per Cardiology
-TTE completed
-appreciate Cardiology
-new start Coreg, Entresto
-nitro patch
-new start aspirin/statin (would also need to hold aspirin 7 days pre prostate biopsy per Urology)
-s/p LHC on 03/29 - MVCAD, referred for CABG
--CTSgy consulted
Abnormal CT scan with finding concern for bony metastatic disease
Significantly elevated PSA - Prostate cancer
-patient aware of this diagnosis of prostate cancer
-formal Oncology consult appreciated
-Urology consult appreciated -
-patient will need PET as outpatient
-pros/cons prostate biopsy (not needed for first line therapy, would need to disrupt anti-PLT regimen and delay cardiac work-up) - Urology discussing plan with Cardiology now
-per Dr. Dimas, anticipate starting Casodex in anticipation of outpatient Lupron
MARSHAL versus CKD
-monitor renal function with diuresis
Hx tobacco use
DVT PPx hep subQ
FULL CODE
51 minutes spent on patient care
Anticipated Discharge: > 48 hours
Subjective/Interval History
-
Date of Service: March 29, 2025
seen and examined. no new complaints. no acute overnight events
Objective Data
-
Labs:
Laboratory Results
03/29/25 03/29/25 03/29/25
06:11 13:55 14:14
PT 15.9 H
INR 1.24
APTT 107.2 H
HCO3 Pending
Sodium 143
Potassium 4.1
Chloride 106
Carbon Dioxide 27
BUN 37 H
Creatinine 1.4 H
Glucose 117 H
Calcium 9.4
Total Bilirubin Pending
AST Pending
ALT Pending
Alkaline Phosphatase Pending
Vital Signs:
Vital Signs
Temp Pulse Resp BP Pulse Ox
98.5 F 94 20 130/87 97
03/29/25 11:47 03/29/25 13:25 03/29/25 11:47 03/29/25 13:25 03/29/25 12:07
I&O
03/28/25 03/29/25 03/30/25
06:59 06:59 06:59
Intake Total 1920 / 1920 1140 / 1140
Output Total 1250 / 1250 2175 / 2175
Balance 670 / 670 -1035 / -1035
--- NOTE | 2025-03-29 15:59 | CM ---
Reviewed chart. Mr. Cabezas was transferred to IVU. Met with Mr. Cabezas and his spouse to review. He states he currently doees not have any health Insurance. He states he has been in contact with [facility] and has completed the paperwork and brought in
all of the necessary documentations. Prior to admission he resides with his spouse in a multi-level condo with five steps to enter. His bathroom is on the first floor but his bedroom is on the second floor. Prior to admission he was independent
with ambulation and adls. He wright not have any DME in the home. He does not have any coverage for prescriptions so he can not afford the headley ray of [employer].or [employer]. Updated P.A. of Cardiology. Medical work-u[p in progress. The discharge
plan is to return home with his spouse when medically stable.
[2025-03-29 16:11] LABS: B.E. 0 mmol/L; HCO3 23.8 mmol/L (21-28); PCO2 35 mmHg (35-48); PO2 85 mmHg (83-108); pH 7.44 (7.35-7.45)
[2025-03-29 17:08] LABS: Glucose - Point of Care 132 mg/dl (70-99)
[2025-03-29 17:10] LABS: ALT (SGPT) 17 U/L (0-50); AST (SGOT) 89 U/L (17-59); Alkaline Phosphatase 420 U/L (38-126); Direct Bilirubin 0.4 mg/dl (0.0-0.4); Total Bilirubin 0.8 mg/dl (0.2-1.3); Total Protein 6.6 g/dl (6.3-8.2)
[2025-03-29] MEDS: LIPITOR 40 MG PO (17:47)
--- NOTE | 2025-03-29 18:19 | PTCARENOTE ---
VS were not downloaded for 2 days on the other floor. I downloaded all VS
--- NOTE | 2025-03-29 18:19 | PTCARENOTE ---
unable to do bilat. BP due to R band on.
--- NOTE | 2025-03-29 21:26 | PTCARENOTE ---
received patient at the change of shift. AAOx3. denies any cp/sob. cath sites intact. + pulses. SR/ST on tele 90s-100s. bp stable. patient independent in the room. patient states feeling overwhelmed by today. answered all questions. educated patient
to inform RN with any new changes. call caraballo within reach. makes needs known.
[2025-03-29 22:17] LABS: Glucose - Point of Care 105 mg/dl (70-99)
[2025-03-30] VITALS (9 sets, daily range): BP systolic 81–118; BP diastolic 55–80; BMI 25.9
[2025-03-30 03:14] LABS: Hematocrit 35.4 % (39.0-52.0); Hemoglobin 12.5 g/dL (13.0-18.0); Mean Corp Hgb Conc. 35.3 g/dL (33.0-37.0); Mean Corpuscular Hgb 29.1 pg (27.0-31.0); Mean Corpuscular Volume 82.5 fL (80.0-94.0); Mean Platelet Volume 9.3 fL (7.4-10.4); Platelet Count 188 10^3/uL (130-400); Red Blood Cell Count 4.29 10^6/uL (4.70-6.10); Red Cell Dist. Width 13.3 % (11.5-14.5); White Blood Cell Count 5.7 10^3/uL (4.8-10.8)
[2025-03-30 03:37] LABS: Blood Urea Nitrogen 34 mg/dl (9-20); Carbon Dioxide 22 mmol/L (22-30); Chloride 109 mmol/L (98-107); Estimated Creatinine Clearance 72 ml/min; Glucose 113 mg/dl (70-99); HDL Cholesterol 32 mg/dl; LDL Cholesterol, Calculated 117 mg/dl; Sodium 141 mmol/L (135-145); Total Cholesterol 187 mg/dl (50-199); Triglyceride 192 mg/dl (10-149); Very Low Density Lipoprotein 38 mg/dl (0-30); eGFR > 60.00
[2025-03-30 07:15] LABS: Glucose - Point of Care 112 mg/dl (70-99)
--- NOTE | 2025-03-30 08:11 | W.PN.UPDATE ---
Update Note
Progress Note Update
Continue ongoing surgical work up. Patient is tentatively scheduled for SaturdayApril [address] Cabezas.
[2025-03-30] MEDS: COREG 6.25 MG PO ×2 (09:01→20:36)
[2025-03-30] MEDS: LOW STRENGTH ASPIRIN 81 MG PO (09:01)
[2025-03-30] MEDS: LASIX 40 MG PO (09:01)
[2025-03-30] MEDS: DESENEX/MITRAZOL/ZEASORB 1 APPLIC TOPICAL ×2 (09:02→20:36)
[2025-03-30] MEDS: CASODEX 50 MG PO (09:02)
[2025-03-30] MEDS: ENTRESTO 24 MG/26 MG 1 TAB PO (09:02)
[2025-03-30] MEDS: FARXIGA 10 MG PO (09:02)
[2025-03-30] MEDS: FLOMAX 0.4 MG PO (09:02)
[2025-03-30] MEDS: HEPARIN 5000 UNITS SC (09:03)
--- NOTE | 2025-03-30 10:08 | PN.CDI ---
CDI
- -
CDI:
Physician Documentation Request
Admit Date: 03/26/25 10:39
Dear Doctor,
Please review the following and provide your response in the progress notes.
Clinical Indicators:
Pt admitted with acute heart failure reduced EF.
03/26 ER: ' Resp: Tachypneic, increased work of breathing, lungs clear to auscultation bilaterally.... Remains tachypneic and tachycardic. Will start patient on BiPAP and administer Lasix.'
ER note Resp rate 24-31.
Clarify which of the following accurately represents the patient's respiratory status:
Acute respiratory failure (Please indicate type)
Hypoxia
Other
Additional information for Respiratory Failure:
Recognized criteria for Respiratory Failure (Source: Nicki Hurst 2018September 02.
Documentation tips: Acute Respiratory Failure, The Hospitalist.)
ABGs: (1 or more) Symptoms Please indicate type if known
1. p)2 <60 or RA SPO2 <91% on RA 1. Tachypnea, SOB, dyspnea Hypoxic
2. pCO2 >45 and pH <7.35 2. Use of accessory muscles Hypercapnic
3. pO2 decrease of pCO2 increase by 3. Pallor or cyanosis Hypoxic and Hypercapnic
10 mmHg from baseline if known 4. Anxiety or restlessness other
4. P/F Ratio (pO2/FiO2)nless than 300 5. Unable to speak in full sentences
Use of terms such as suspected, likely, concern for, or probable (associated with a specific diagnosis that is being evaluated, monitored, or treated as if it exists) are acceptable and can be coded in the inpatient setting, when documented at the
time of discharge.
Thank you,
Niya Liriano RN, BSN
CDI Specialist
Hope Text
Please use your independent medical judgment in providing your response.
--- NOTE | 2025-03-30 10:19 | W.PN.ONC2 ---
Today's Communication / Plan
-
continue Casedex
plan for CABG 04/02 noted
Impression
Impression
New onset systolic CHF
Hx tobacco use disorder
Significant family history of cancer
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
Plan
Plan
Urology does not feel that biopsy is necessary for diagnosis since antiplatelet should not be stopped for bx and comfortable making diagnosis of prostate cancer based on PSA, bony mets, and abnormal prostate exam
Casodex 50 mg daily started 03/29/2025 in anticipation of Lupron
Creatinine is borderline for IV contrast with CT. CT A/P with combined contrast if Cr<1.2, otherwise oupt PET scan for staging.
New cancer diagnosis should not be considered a contraindication or limiting factor with respect to any contemplated cardiac interventions. He is newly diagnosed and I estimate life expectancy at >5 years.
Family history is noted. Germline mutation testing as well as somatic mutation testing indicated for outpt setting, may impact systemic therapy.
Subjective/Objective
Subjective
no new complaints
Vital Signs:
Vital Signs
Temp Pulse Resp BP Pulse Ox
98.5 F 105 18 118/79 96
03/30/25 07:08 03/30/25 09:02 03/30/25 07:08 03/30/25 09:02 03/30/25 08:30
Lab Results:
Laboratory Data
WBC 5.7 10^3/uL (4.8-10.8) 03/30/25 02:38
Hgb 12.5 g/dL (13.0-18.0) L 03/30/25 02:38
Plt Count 188 10^3/uL (130-400) 03/30/25 02:38
PT 15.9 Sec (11.4-14.6) H 03/29/25 14:14
INR 1.24 03/29/25 14:14
APTT 107.2 Sec (23.4-35.0) H 03/29/25 14:14
eGFR > 60.00 03/30/25 02:38
Physical Exam
General: Well Developed, Well Nourished and No Apparent Distress
HEENT: Moist Mucous Membranes; Negative Jaundice
Cardiology: Normal Sinus Rhythm, S1 and S2
Pulmonary: Clear; Negative Wheezes or Rales
GI: Soft and Normal Bowel Sounds
Musculoskeletal: No Clubbing, No Cyanosis and No Edema
Extremities: Negative Phlebitic Signs
Neurology: Non Focal and No Lateralizing Symptoms
Skin: Warm and Dry; Negative Rash
Orders
Orders
Orders From Last 24 Hours
03/29/25 12:00
Bicalutamide [Casodex] 50 mg PO DAILY
[2025-03-30 12:20] LABS: Glucose - Point of Care 110 mg/dl (70-99)
--- NOTE | 2025-03-30 12:24 | W.PN.CARDCBS ---
Addendum entered and electronically signed by Jammie Weber MD 03/30/25 15:35:
I saw and examined the patient. The Newspaper Photojournalist's note was reviewed and I agree with the note.
Comment:
Patient is status post heart catheterization yesterday with multivessel coronary artery disease for which heart team was taken and CT surgery was consulted. Overall his breathing has improved since admission.
Vitals and lab work reviewed. On exam patient is awake, alert and oriented x 3, regular rate, normal S1 and S2, no murmurs, rubs or gallops no JVD, lungs are CTAB, abdomen is obese, soft, nontender with active bowel sounds, cath access sites
without evidence of hematoma or bruit, warm extremities without significant edema
Recommendations:
1. Type II NSTEMI due to acute decompensated heart failure new ischemic cardiomyopathy. Heart catheterization with significant multivessel coronary artery disease where heart team discussion was pursued. Multiple discussions were had with CT
surgery with plan now to pursue coronary artery bypass grafting by Dr. Buddy Cabezas, tentatively scheduled for April 02, 2025.
2. Preoperative evaluation and testing per CT surgery.
3. Continue optimization of goal-directed medical therapy for ischemic cardiomyopathy with daily baby aspirin, high intensity statin, SGLT2 inhibitor, Entresto, carvedilol.
4. Given overall near normal filling pressures, Lasix switched to p.o. daily starting today to maintain euvolemia.
5. Close monitoring of renal function and electrolytes with repletion of K and mag as warranted.
6. Management of metastatic prostate cancer being deferred to primary team.
7. Eventual referral for outpatient cardiac rehab.
Discussed all of the above with patient and nursing at bedside.
Jammie Weber MD, [facility], [facility]
Total Time spent: 36mins
Original Note:
Today's Communication / Plan
-
Anticipated CABG 04/02/2025
Undergoing preop testing
Continue GDMT with Coreg, Entresto, Farxiga, atorvastatin, aspirin, statin
Lasix has been changed to 40 mg oral
Repeat CMP in a.m.
Casodex new for metastatic prostate cancer
Impression / Plan
-
Primary Housekeeping Supervisor Hotel: none prior to admission, initial consult Dr Aubrey Hess
Assessment:
Presented 03/26/2025 with SOB, orthopnea
Acute heart failure with reduced EF, proBNP 1120
Hypertensive emergency
Sinus tachycardia
Elevated troponin, peak 0.087
SVT
Multivessel coronary artery disease
MARSHAL peak creatinine 1.5 on admission
Type 2 diabetes, hemoglobin A1c 7.0%, new diagnosis
Hyperlipidemia
Prostate cancer, PSA 1050 with concern for bony metastatic disease on chest CT
Former smoker
ECHO 03/26/25: Mildly dilated LV, global hypokinesis EF 27%, G3DD, normal RV, mild to moderate MR, small pericardial effusion
Cardiac catheterization 03/29/2025: Left main: Patent. LAD: Proximal to mid spanning across D1 60% stenosis, mid LAD stenosis spanning across D3 takeoff 50 to 60% stenosis. IFR positive at 0.84. Left circumflex: Mid 50% stenosis otherwise LI.
RCA: 100% chronic total occlusion of mid RCA with [id number]-bhaom collaterals. HEMODYNAMICS : (mmHg) RA (m) : 4; RV (s/d,m) : 25/3, 5; PA (s/d, m) : 23/14, 17; PCWP (m) : 8; Cardiac Output : 5.41 L/min; Cardiac Index : 2.58 L/min/m-2; Systemic
vascular resistance: 1315 dsc^(-5); Pulmonary vascular resistance: 1.66 baez unit
Plan:
- Patient presented 03/26/2025 with symptoms of shortness of breath and orthopnea over the last 2 weeks. On arrival noted to be markedly hypertensive, tachypneic, and tachycardic. CT of the chest without evidence of PE, however did show dense
coronary artery calcifications as well as bilateral pleural effusions and pulmonary edema consistent with acute congestive heart failure. proBNP 1120.
Acute heart failure with reduced ejection fraction, proBNP 1120
- suspect ischemic and tachycardia related
- Noted to have multivessel coronary artery disease on cardiac catheterization 03/29/2025
-Symptomatically patient has improved with resolved shortness of breath and orthopnea with diuresis, weight down 11 pounds of scale correct on admission
-Normal hemodynamics on cardiac catheterization 03/29/2025 therefore patient transition to oral Lasix 40 mg daily
ongoing IV diuresis with IV Lasix 40 mg; reduce to daily and monitor renal function electrolytes
-GDMT with Coreg, Entresto and Farxiga started. This will require temporary disruption for anticipated CABG 04/02/2025
- CHF education
Multivessel coronary artery disease on catheterization 03/29/2025, peak troponin of 0.087 on admission
- Patient currently denies chest pain. EKG stable.
- Blood pressure has improved with continued medical management with Coreg, Entresto and Farxiga.
- Prestatin lipids 03/27/2025 TC 247, HDL 41, LDL 165, triglycerides 208. Now on atorvastatin 40 mg. Of note AST jumped from 51-89 on labs 03/29/2025. Will repeat in AM. If LFT stable will consider uptitration of atorvastatin to 80 mg
- Hemoglobin A1c 7.0%. New diagnosis of diabetes. Diabetic education. Now on Farxiga both for cardiovascular, heart failure and diabetes
Abnormal PSA of 1050 on admission with concern for metastatic prostate cancer to bone.
-Appreciate input from hematology/oncology and urology, they feel that it is likely patient does have metastatic prostate cancer. New cancer diagnosis should not be considered a contraindication or limiting factor with respect to any contemplated
cardiac interventions. He is newly diagnosed and I estimate life expectancy at >5 years.
-Reviewed urology, Dr. Aiken, who does not believe that biopsy is necessary at this current juncture for treatment and that treatment empirically for cancer is warranted.
-Casodex 50 mg daily started 03/29/2025 in anticipation of Lupron
-Will need eventual outpatient evaluation with PET scan for staging
d/w patient, nursing, hospitalist, CT surgery
Progress Note - Housekeeping Supervisor Hotel
Subjective
Date of Service: March 30, 2025
Patient seen and examined. Patient lying comfortably in chair. Patient reports overall he is feeling well with improved shortness of breath and orthopnea. Denies chest pain
Objective
Labs:
03/30/25 02:38
03/30/25 02:38
Labs
Hgb 12.5 g/dL (13.0-18.0) L 03/30/25 02:38
Hct 35.4 % (39.0-52.0) L 03/30/25 02:38
Plt Count 188 10^3/uL (130-400) 03/30/25 02:38
PT 15.9 Sec (11.4-14.6) H 03/29/25 14:14
INR 1.24 03/29/25 14:14
APTT 107.2 Sec (23.4-35.0) H 03/29/25 14:14
Sodium 141 mmol/L (135-145) 03/30/25 02:38
Potassium 4.0 mmol/L (3.5-5.1) 03/30/25 02:38
BUN 34 mg/dl (9-20) H 03/30/25 02:38
Creatinine 1.2 mg/dL (0.7-1.3) 03/30/25 02:38
Glucose 113 mg/dl (70-99) H 03/30/25 02:38
Vital Signs and I&O:
Vital Signs
Temp Pulse Resp BP Pulse Ox
98.5 F 89 16 118/79 100
03/30/25 12:08 03/30/25 12:08 03/30/25 12:08 03/30/25 09:02 03/30/25 12:08
Vital Signs
Temp Pulse Resp BP Pulse Ox
98.5 F 89 16 118/79 100
03/30/25 12:08 03/30/25 12:08 03/30/25 12:08 03/30/25 09:02 03/30/25 12:08
Intake & Output
03/28/25 03/29/25 03/30/25 03/31/25
06:59 06:59 06:59 06:59
Intake Total 1920 / 1920 1140 / 1140 883 / 883
Output Total 1250 / 1250 2175 / 2175 1900 / 1900 300 / 300
Balance 670 / 670 -1035 / -1035 -1017 / -1017 -300 / -300
Physical Exam
Physical Exam
GEN: No distress, awake, Ox3, sitting in chair
HEENT: supple, anicteric, mmm
LUNGS: CTA, no wheezes/rales
CV: Reg, S1/S2, 1/6 syst LSB, no murmur
ABD: soft, BS+, NT/ND
EXT: No edema, clubbing or cyanosis; right wrist with palpable radial pulse, no hematoma. Right groin stable with palpable femoral pulse, no hematoma.
NEURO: Gross non-focal
SKIN: No rash, warm, dry, pink
--- NOTE | 2025-03-30 12:25 | W.PN.HOSP.TC ---
Addendum entered and electronically signed by Norman Ingram MD 03/30/25 14:03:
Acute respiratory failure
Original Note:
Today's Communication/Plan
-
Assessment / Plan
Assessment / Plan
NAD
Scleral Anicteric
MMM
No JVD
CTABL
RRR, S1/S2
Soft, NT, ND, BS+
Warm, Dry
Right wrist without hematoma, right groin without hematoma
AAOx3
Calm
Heart Failure reduced ejection fraction, acute exacerbation; new diagnosis
Coronary artery calcifications
-BiPAP applied in ER, now off
-admitted to IMU, transferred to tele on 03/27
-patent is now on room air
- Oral Lasix
-TTE completed
-appreciate Cardiology
-new start Coreg, Entresto
-nitro patch
-new start aspirin/statin (would also need to hold aspirin 7 days pre prostate biopsy per Urology)
-s/p LHC on 03/29 - [facility], referred for CABG, with plans of 04/02
--CTSgy consulted
Abnormal CT scan with finding concern for bony metastatic disease
Significantly elevated PSA -concern for prostate cancer
-patient aware of this diagnosis of prostate cancer
-formal Oncology consult appreciated
-Urology consult appreciated -
-patient will need PET as outpatient
-pros/cons prostate biopsy (not needed for first line therapy, would need to disrupt anti-PLT regimen and delay cardiac work-up) - Urology discussing plan with Cardiology now
-per Dr. Dimas, anticipate starting Casodex in anticipation of outpatient Lupron
MARSHAL versus CKD
-monitor renal function with diuresis
Hx tobacco use
DVT PPx hep subQ
Anticipated Discharge: > 48 hours
Subjective/Interval History
-
Date of Service: March 30, 2025
No new complaints no acute overnight events
Objective Data
-
Labs:
Laboratory Results
03/30/25
02:38
WBC 5.7
Hgb 12.5 L
Hct 35.4 L
Plt Count 188
Sodium 141
Potassium 4.0
Chloride 109 H
Carbon Dioxide 22
BUN 34 H
Creatinine 1.2
Glucose 113 H
Calcium 9.0
Vital Signs:
Vital Signs
Temp Pulse Resp BP Pulse Ox
98.5 F 89 16 118/79 100
03/30/25 12:08 03/30/25 12:08 03/30/25 12:08 03/30/25 09:02 03/30/25 12:08
I&O
03/29/25 03/30/25 03/31/25
06:59 06:59 06:59
Intake Total 1140 / 1140 883 / 883
Output Total 2175 / 2175 1900 / 1900 300 / 300
Balance -1035 / -1035 -1017 / -1017 -300 / -300
--- NOTE | 2025-03-30 12:46 | PTCARENOTE ---
received patient this am ambulating in room, aquiles. well. monitor shows Trini GUADARRAMA aware, VSS. U/S, chest xray, PFT's completed as ordered. right radial and right fem. sites dsg. D/I, distal pulses palpable.
--- NOTE | 2025-03-30 15:03 | CM ---
Reviewed chart. Met with and Mrs. Cabezas to review discharge plans. They are waiting to speak with the CT Surgeon. Prior to admission he resides with his spouse in a condo with five steps to enter. His bedroom is on the first floor and his
bathroom is on the second floor. Prior to admission he was independent with ambulation and adls. He does not have any DME in the home. He currently does not have any health insurance. His spouse has completed the M.A. Application and brought in
the necessary documentation. Medial work-up un progress. The discharge plan is to return home with his spouse when medically stable.
--- NOTE | 2025-03-30 15:21 | PTCARENOTE ---
patient HR 100's, BP 81/57, patient felt dizzy, patient stated, 'this is how I felt at home', patient returned back to bed, BP 104/68, Trini SHARPE aware, but parameters on entresto .
--- NOTE | 2025-03-30 16:03 | PN.CDI ---
CDI
- -
CDI:
Physician Documentation Request
Admit Date: 03/26/25 10:39
Dear Doctor,
Please review the following and provide your response in the progress notes.
Clinical Indicators:
Pt admitted with Heart failure reduced EF.
03/26 H&P: ' Troponin Elevation, likely non ischemic myocardial injury'
03/28 Cardiology: '- Concern for ischemic cardiomyopathy with dense coronary artery calcifications noted by CT scan. Troponin peak 0.087. EKG ST with inferior T wave abnormality, no recurrent chest pain, will need ischemic evaluation'
03/30 Cardiology: ' 1. Type II NSTEMI due to acute decompensated heart failure new ischemic cardiomyopathy. Heart catheterization with significant multivessel coronary artery disease where heart team discussion was pursued.
Based on the above, please clarify in the progress notes the most appropriate diagnosis for your patient.
NSTEMI
non-ischemic myocardial injury
Other
Use of terms such as suspected, likely, concern for, or probable (associated with a specific diagnosis that is being evaluated, monitored, or treated as if it exists) are acceptable and can be coded in the inpatient setting, when documented at the
time of discharge.
Thank you,
Niya Liriano RN, BSN
CDI Specialist
[place] [facility]
Please use your independent medical judgment in providing your response.
--- NOTE | 2025-03-30 16:30 | PTCARENOTE ---
patient c/o constipation, TT Dr. Ingram, ordered colace po.
[2025-03-30 16:47] LABS: Glucose - Point of Care 111 mg/dl (70-99)
[2025-03-30] MEDS: LIPITOR 40 MG PO (17:40)
[2025-03-30] MEDS: COLACE 100 MG PO (20:36)
[2025-03-30 22:39] LABS: Glucose - Point of Care 114 mg/dl (70-99)
--- NOTE | 2025-03-30 23:02 | PTCARENOTE ---
Received pt @ change of shift. AAOx3. VSS-- NSR on monitor. Right wrist clean, dry, and intact. Soft to touch, no hematoma. Right groin clean, dry, and intact. Soft to touch, no hematoma. Discussed plan of care for evening. Pt verbalizes
understanding. Call caraballo within reach.
[2025-03-31] VITALS (8 sets, daily range): BP systolic 86–110; BP diastolic 60–73; BMI 25.8
--- NOTE | 2025-03-31 04:21 | DOWNTIME ---
Addendum entered and electronically signed by Nanda Crain RN 03/31/25 14:25:
Correction: Downtime was 03/31/2025 from 0100 to 03/31/2025 at 0415
Original Note:
There was a [employer] Client Thermo Cementing Folder Operator Downtime on 03/30/2025 from 0100 to 03/31/2025 at 0415. Downtime documentation of patient's care, including medication administrations, has been reconciled in the electronic record per guidelines. Refer to the
patient's paper chart under the miscellaneous tab to see printed paper medication records and downtime forms.
[2025-03-31 06:01] LABS: ALT (SGPT) 17 U/L (0-50); AST (SGOT) 46 U/L (17-59); Alkaline Phosphatase 385 U/L (38-126); Blood Urea Nitrogen 37 mg/dl (9-20); Calcium 8.9 mg/dl (8.4-10.2); Carbon Dioxide 24 mmol/L (22-30); Chloride 105 mmol/L (98-107); Estimated Creatinine Clearance 66 ml/min; Glucose 131 mg/dl (70-99); Potassium 3.9 mmol/L (3.5-5.1); Sodium 139 mmol/L (135-145); Total Bilirubin 0.7 mg/dl (0.2-1.3); Total Protein 6.6 g/dl (6.3-8.2); eGFR > 60.00
[2025-03-31 07:41] LABS: Glucose - Point of Care 142 mg/dl (70-99)
--- NOTE | 2025-03-31 07:53 | W.PN.CARDCBS ---
Addendum entered and electronically signed by Kenneth Dozier MD 03/31/25 11:40:
I saw and examined the patient.
The Webbing Supervisor's note was reviewed and I agree with the note.
Comment:
GEN: No distress, awake, Ox3
HEENT: supple, anicteric, mmm
LUNGS: CTA, no wheezes/rales
CV: Reg, S1/S2, 1/6 syst LSB, no gallop
ABD: soft, BS+, NT/ND
EXT: No edema
NEURO: Gross non-focal
SKIN: No rash
Plan:
Cath results reviewed. Plan is for CABG in AM.
Continue to follow for nonsustained VT on telemetry. Continue Coreg. Hold Entresto with orthostasis/near syncope.
Creatinine at 1.3. Continue to follow.
Social work continue to follow regarding insurance. He likely will need all generic medications prior to discharge. Entresto and Farxiga likely will be too expensive.
Original Note:
Today's Communication / Plan
-
Check magnesium level
Follow tele for recurrence of NSVT
CABG in AM, eventually start Plavix
Consider DM OYSTER FLOATER/educator, patient did not have glucometer prior to admission, DM 2 is a new diagnosis
Impression / Plan
-
PCP: None, no health insurance prior to admission
Primary Datacap Developer: none prior to admission, initial consult Dr Aubrey Hess
Oncology: seen initially by Dr. Caballero
Assessment:
Presented with SOB, orthopnea 03/26/2025
Acute heart failure with reduced EF, proBNP 1120
Hypertensive emergency
Sinus tachycardia
Elevated troponin, peak 0.087
SVT
Multivessel coronary artery disease
MARSHAL peak creatinine 1.5 on admission
Type 2 diabetes, hemoglobin A1c 7.0%, new diagnosis
Hyperlipidemia
Prostate cancer, PSA 1050 with concern for bony metastatic disease on chest CT
Former smoker
NSVT, 16 beat run 03/30/25
ECHO 03/26/25: Mildly dilated LV, global hypokinesis EF 27%, G3DD, normal RV, mild to moderate MR, small pericardial effusion
Cardiac catheterization 03/29/2025: Left main: Patent. LAD: Proximal to mid spanning across D1 60% stenosis, mid LAD stenosis spanning across D3 takeoff 50 to 60% stenosis. IFR positive at 0.84. Left circumflex: Mid 50% stenosis otherwise LI.
RCA: 100% chronic total occlusion of mid RCA with [id number]-ed-bwffs collaterals. HEMODYNAMICS : (mmHg) RA (m) : 4; RV (s/d,m) : 25/3, 5; PA (s/d, m) : 23/14, 17; PCWP (m) : 8; Cardiac Output : 5.41 L/min; Cardiac Index : 2.58 L/min/m-2; Systemic
vascular resistance: 1315 dsc^(-5); Pulmonary vascular resistance: 1.66 baez unit
Plan:
-Patient with SOB on admission and CT chest showed coronary calcifications and acute HF. Patient diuresed, EF down at 27% by echo and cardiac cath showed MV CAD. Also found to have new metastatic prostate cancer. Patient did not have a PCP or
medical insurance prior to admission.
-Peak Troponin 0.087 was managed as a NSTEMI. No chest pain. Not currently on Heparin gtt.
-MV CAD by cardiac cath 03/29/25. Patient was evaluated by CT surgery and CABG planned for 04/01/25
-New to aspirin this admission
-Eventually restart Plavix post-CABG given NSTEMI
-New to Coreg 6.25 mg BID this admission
-LDL as high as 165, new to atorvastatin 40 mg daily this admission. LFTs normal on labs reviewed by me 03/31/25
-HgbA1c 7.0% and newly diagnosed DM 2. I do not see input from DM OYSTER FLOATER or educator. This is a new diagnosis for patient, he did not have a glucometer prior to admission.
-Cardiac rehab consulted and will follow post-op for eventual outpatient program
-NSVT 03/30/25 seen on tele that was reviewed by me 03/31/25. Patient reports feeling near syncopal, but looks like this might have been when he also had orthostasis. Potassium 3.9, last magnesium level was 1.9 on 03/28/25, recheck magnesium level now,
ordered by me. Cont Coreg. Follow on tele.
-Weight is down 6 lbs this admission with Lasix 40 mg IV BID this admission. PCWP was 8 by [facility] 03/29/25 which correlated with weight of 192 lbs. Lasix transitioned to 40 mg PO daily 03/29/25. Weight is 189 lbs on 03/31/25.
-Patient with near syncope on 03/30/25. BP med parameters added.
-New to Coreg as above
-New to Entresto 24/26 mg BID, no idea on cost, patient did not have medical insurance prior to admission and case mgmt working on Medicaid application. Regardless, Entresto on hold due to near syncope 03/30/25.
-New to Farxiga, cost unknown. Regardless, Farxiga on hold in anticipation of surgery.
-Patient also with newly diagnosed metastatic prostate cancer and now following with oncology. Started on Casodex this admission and eventual Lupron. He will need outpatient PET for staging. Oncology note reviewed by me quotes greater than 5 year
life expectancy.
Progress Note - Datacap Developer
Subjective
Date of Service: March 31, 2025
He had near syncope yesterday
Objective
Labs:
03/30/25 02:38
03/31/25 04:56
Labs
Hgb 12.5 g/dL (13.0-18.0) L 03/30/25 02:38
Hct 35.4 % (39.0-52.0) L 03/30/25 02:38
Plt Count 188 10^3/uL (130-400) 03/30/25 02:38
PT 15.9 Sec (11.4-14.6) H 03/29/25 14:14
INR 1.24 03/29/25 14:14
APTT 107.2 Sec (23.4-35.0) H 03/29/25 14:14
Sodium 139 mmol/L (135-145) 03/31/25 04:56
Potassium 3.9 mmol/L (3.5-5.1) 03/31/25 04:56
BUN 37 mg/dl (9-20) H 03/31/25 04:56
Creatinine 1.3 mg/dL (0.7-1.3) 03/31/25 04:56
Glucose 131 mg/dl (70-99) H 03/31/25 04:56
Vital Signs and I&O:
Vital Signs
Temp Pulse Resp BP Pulse Ox
97.8 F 96 18 102/68 95
03/31/25 07:32 03/31/25 07:32 03/31/25 07:32 03/31/25 04:51 03/31/25 07:32
Vital Signs
Temp Pulse Resp BP Pulse Ox
97.8 F 96 18 102/68 95
03/31/25 07:32 03/31/25 07:32 03/31/25 07:32 03/31/25 04:51 03/31/25 07:32
Intake & Output
03/29/25 03/30/25 03/31/25 04/01/25
06:59 06:59 06:59 06:59
Intake Total 1140 / 1140 883 / 883
Output Total 2175 / 2175 1900 / 1900 1200 / 1200 100 / 100
Balance -1035 / -1035 -1017 / -1017 -1200 / -1200 -100 / -100
Physical Exam
Physical Exam
GEN: NAD, AAOx3
HEENT: EOMI, MMM
LUNGS: RA. No audible wheeze
CV: SR on tele.
EXT: No edema B/L
NEURO: Gross non-focal
SKIN: No rash
--- NOTE | 2025-03-31 08:00 | PTCARENOTE ---
Assumed care of pt from prev nsg shift; Pt AAOX3 w/no CP or SOB. Pt's VSS w/HR in the the 80's-90's; BP 103/72 this AM. Pt is SR w/PAC's & freq PVC's on telemetry monitoring. Pt's R radial site & R fem site w/dressings C/D/I w/no signs or symptoms
of bleeding or hematoma. Discussed plan of care w/pt & pre-op surgical prep procedures for tonight & tomm morning. Pt's questions answered & emotional support provided. Pt w/call caraballo within reach & plan of care ongoing.
--- NOTE | 2025-03-31 08:15 | W.PN.UPDATE ---
Addendum entered and electronically signed by JAMEE Fang 03/31/25 09:16:
Procedure Type:�Isolated CABG
Perioperative Outcome Estimate %
Operative Mortality 1.73%
Morbidity & Mortality 10.1%
Stroke 1.63%
Renal Failure 1.99%
Reoperation 3.61%
Prolonged Ventilation 5.38%
Deep Sternal Wound Infection 0.12%
Long Hospital Stay (>14 days) 5.31%
Short Hospital Stay (<6 days)* 40%
Clinical Summary
Planned Surgery: Isolated CABG, Urgent, First cardiovascular surgery
Demographics: 59 year old, male, 87kg, 183cm, BMI: 26 kg/m�
Lab Values: Creatinine: 1.2 mg/dL, Hematocrit: 35%, WBC Count: 5.7 10�/�L, Platelet Count: 013017 cells/�L
Substance Abuse: Former smoker, Alcohol use: 2-7 drinks/week
Risk Factors / Comorbidities: Diabetes Mellitus , Cancer <=5 yrs
Pulmonary RF: Mild CLD
Cardiac Status: Acute and chronic heart failure, Ejection Fraction = 25%
Coronary Artery Disease: 3 vessels diseased, Non-ST Elevation NJ, NJ: 1 to 7 Days
Valve Disease: Moderate MR
Original Note:
Update Note
Progress Note Update
Surgery date changed to March. Consent to be obtained. pre-operative orders and type and screen placed.
[2025-03-31] MEDS: COREG 6.25 MG PO ×2 (09:28→20:01)
[2025-03-31] MEDS: LASIX 40 MG PO (09:28)
[2025-03-31] MEDS: FLOMAX 0.4 MG PO (09:29)
[2025-03-31] MEDS: LOW STRENGTH ASPIRIN 81 MG PO (09:29)
[2025-03-31] MEDS: COLACE 100 MG PO (09:29)
[2025-03-31] MEDS: CASODEX 50 MG PO (09:29)
[2025-03-31] MEDS: DESENEX/MITRAZOL/ZEASORB 1 APPLIC TOPICAL (09:56)
--- NOTE | 2025-03-31 10:58 | CM ---
Reviewed chart. Met with Mr. Cabezas to review discharge plans. He states prior to admission he resides with his spouse and mother-in law in a two story home with five steps to enter. He states he has a full flight of steps to get to bedroom/full
bathroom. He states he has a full flight of steps to get to bedroom/full bathroom. He states he has a powder room on the first floor. He states prior to admission he was independent with ambulation and adls. He states he does not have any DME in
the home. He currently does not have a prescription plan or health insurance. Application for Medial Assistance has been sent. He states he has a supportive family and friends who will be able to assist in his care if needed. Medical work-up in
progress. The discharge plan is to return home with his spouse and a home visit by the Transitional Care Nurse when medically stable.
We reviewed pre-op and post-op routines. We briefly reviewed the shower instructions. Gave him the Cardiothoracic Surgery Educational Booklet. We reviewed restrictions including sternal precautions and driving restrictions. Also discussed a home
visit by the Transitional Care Nurse. He is agreeable to a home visit. Medical work-up in progress. The plan is for CABG on , 04/01/25.
[2025-03-31 12:06] LABS: Glucose - Point of Care 134 mg/dl (70-99)
--- NOTE | 2025-03-31 15:21 | W.PN.HOSP.TC ---
Addendum entered and electronically signed by Norman Ingram MD 04/01/25 18:07:
NSTEMI
Original Note:
Today's Communication/Plan
-
Assessment / Plan
Assessment / Plan
NAD
Scleral Anicteric
MMM
No JVD
CTABL
RRR, S1/S2
Soft, NT, ND, BS+
Warm, Dry
Right wrist without hematoma, right groin without hematoma
AAOx3
Calm
Heart Failure reduced ejection fraction, acute exacerbation; new diagnosis
Coronary artery calcifications
-BiPAP applied in ER, now off
-admitted to IMU, transferred to tele on 03/27
-patent is now on room air
- Oral Lasix
-TTE completed
-appreciate Cardiology
-new start Coreg, Entresto
-nitro patch
-new start aspirin/statin (would also need to hold aspirin 7 days pre prostate biopsy per Urology)
-s/p LHC on 03/29 - MVCAD, referred for CABG, with plans of 04/02
--CTSgy consulted
Abnormal CT scan with finding concern for bony metastatic disease
Significantly elevated PSA -concern for prostate cancer
-patient aware of this diagnosis of prostate cancer
-formal Oncology consult appreciated
-Urology consult appreciated -
-patient will need PET as outpatient
-pros/cons prostate biopsy (not needed for first line therapy, would need to disrupt anti-PLT regimen and delay cardiac work-up) - Urology discussing plan with Cardiology now
-per Dr. Dimas, anticipate starting Casodex in anticipation of outpatient Lupron
MARSHAL versus CKD
-monitor renal function with diuresis
Hx tobacco use
DVT PPx hep subQ
Anticipated Discharge: > 48 hours
Subjective/Interval History
-
Date of Service: March 31, 2025
Seen and examined. No new complaints. No acute overnight events.
Objective Data
-
Labs:
Laboratory Results
03/31/25
04:56
Sodium 139
Potassium 3.9
Chloride 105
Carbon Dioxide 24
BUN 37 H
Creatinine 1.3
Glucose 131 H
Calcium 8.9
Total Bilirubin 0.7
AST 46
ALT 17
Alkaline Phosphatase 385 H
Vital Signs:
Vital Signs
Temp Pulse Resp BP Pulse Ox
98.3 F 86 16 95/66 100
03/31/25 11:57 03/31/25 11:57 03/31/25 11:57 03/31/25 11:57 03/31/25 11:57
I&O
03/30/25 03/31/25 04/01/25
06:59 06:59 06:59
Intake Total 883 / 883
Output Total 1900 / 1900 1200 / 1200 100 / 100
Balance -1017 / -1017 -1200 / -1200 -100 / -100
[2025-03-31 15:56] LABS: Glucose - Point of Care 140 mg/dl (70-99)
[2025-03-31 16:26] LABS: Magnesium 1.9 mg/dl (1.6-2.3)
[2025-03-31] MEDS: LIPITOR 40 MG PO (18:29)
[2025-03-31] MEDS: DULCOLAX 10 MG RECTAL (18:29)
[2025-03-31] MEDS: DESENEX/MITRAZOL/ZEASORB TOPICAL (20:00)
[2025-03-31] MEDS: COLACE PO (20:01)
[2025-03-31 22:06] LABS: Glucose - Point of Care 122 mg/dl (70-99)
--- NOTE | 2025-03-31 22:20 | PTCARENOTE ---
Received patient at change of shift. SR with occasional PVCs on the monitor, HR in the 90s. Patient clipped and CHG showered for CVOR. NPO at midnight. No complaints from pt at this time, call caraballo within reach.
[2025-04-01] VITALS (18 sets, daily range): BP systolic 93–135; BP diastolic 69–105; BMI 25.6
[2025-04-01 05:48] LABS: Glucose - Point of Care 137 mg/dl (70-99)
[2025-04-01] MEDS: BACTROBAN 2% OINTMENT 1 APPLIC NASAL (05:53)
[2025-04-01] MEDS: LOPRESSOR 25 MG PO (05:53)
[2025-04-01] MEDS: PROTONIX 40 MG PO (05:54)
[2025-04-01] MEDS: MAGNESIUM OXIDE 500 MG PO (05:54)
--- NOTE | 2025-04-01 06:04 | W.CVOR.SURPR ---
CVOR Surgeon Immed Pre Op
-
CARDIAC SURGERY ATTENDING:
I have examined this patient prior to performance of the scheduled procedure.
The patient's condition is unchanged from the time of the dictated/written History and
Physical and the patient is able to undergo the scheduled procedure.
My pleasure with once again reviewed with Mr. Edward Cabezas and his family at bedside yesterday. We once again reviewed his coronary pathology, discussed the proposed operative interventions, reviewed the periprocedural risks (including, but not
limited to, , stroke, PA, arrhythmia, PNA, MARSHAL/F, bleeding, and infection), discussed the expected in-hospital postprocedural course, discussed expected outpatient recovery. All questions were answered to the best of my abilities. The patient
is agreeable to proceed. Informed consent was obtained.
I anticipate CABG x 2-3 with MARY to LAD, GSV to D, and hopefully GSV to RPDA (his posterior vessels are quite diminutive in size and only fill via collaterals). I will perform concurrent exclusion of his left atrial appendage. Given his
significantly reduced LVEF I will plan to place a Impella 5.5 with direct/central cannulation for periprocedural support.
--- NOTE | 2025-04-01 06:10 | PTCARENOTE ---
Patient took another CHG soap shower in am. CHG wipes used after. NPO except medications since midnight. AccuCheck 137. Vital signs stable. Family in room with pt.
[2025-04-01 07:37] LABS: Urine Albumin 1+ (Neg - Trace); Urine Bilirubin Negative (Negative); Urine Character Clear (Clear); Urine Color Yellow; Urine Glucose 2+ (Negative); Urine Ketone Negative (Negative); Urine Leukocyte Negative (Negative); Urine Nitrite Negative (Negative); Urine Occult Blood 4+ (Negative); Urine Specific Gravity 1.015 (<1.030); Urine Urobilinogen Negative (Neg - 1+)
[2025-04-01 07:39] LABS: ACT+ - POC 137 Seconds (82-134)
[2025-04-01 07:53] LABS: Urine Amorphous Seen; Urine Squamous Cell 0-2 /LPF (Few)
[2025-04-01 07:55] LABS: Urine White Cell 0-2 /HPF (0-5)
--- NOTE | 2025-04-01 09:22 | CM ---
Patient in OR today for CT Surgery.
Reviewed initial assessment. Pt. resides w/ spouse in a private, [address] [place] [address] with 5 IVAN. Functionally, patient is indep. at baseline w/ ADLs, mobility without the use of any assisted device.
Antic. DC plan is for home w/ CT Transitional Care RN.
CM to follow.
[2025-04-01 09:29] LABS: ACT+ - POC 495 Seconds (82-134)
[2025-04-01 10:08] LABS: ACT+ - POC 539 Seconds (82-134)
[2025-04-01 10:30] LABS: B.E. - POC 0.2 mmol/L; Glucose - POC 133 mg/dl (70-99); HCO3 - POC 25 mmol/L (21-28); Hematocrit - POC 31 % PCV (42-52); Hemodilution- POC No; Hemoglobin Calculated - POC 10.6; Ionized Calcium - POC 1.16 mmol/L (1.15-1.33); Lactate - POC < 0.30 mmol/L (0.36-0.75); O2 Saturation %Calculated-POC 99.9 % (94-98); PCO2 - POC 39 mmHg (35-48); PO2 - POC 306 mmHg (83-108); Potassium - POC 3.3 mmol/L (3.5-5.1); Sodium - POC 139 mmol/L (136-145); Specimen Type - POC Arterial; pH - POC 7.41 (7.35-7.45)
[2025-04-01 10:31] LABS: B.E. - POC 3.3 mmol/L; Glucose - POC 145 mg/dl (70-99); HCO3 - POC 27 mmol/L (21-28); Hematocrit - POC 27 % PCV (42-52); Hemodilution- POC Yes; Ionized Calcium - POC 1.03 mmol/L (1.15-1.33); Lactate - POC < 0.30 mmol/L (0.36-0.75); PCO2 - POC 35 mmHg (35-48); PO2 - POC 496 mmHg (83-108); Potassium - POC 3.2 mmol/L (3.5-5.1); Sodium - POC 137 mmol/L (136-145); Specimen Type - POC Arterial; pH - POC 7.49 (7.35-7.45)
[2025-04-01 10:35] LABS: ACT+ - POC 495 Seconds (82-134)
[2025-04-01 11:20] LABS: ACT+ - POC 561 Seconds (82-134)
[2025-04-01 12:10] LABS: B.E. - POC 0.4 mmol/L; Glucose - POC 170 mg/dl (70-99); HCO3 - POC 25 mmol/L (21-28); Hematocrit - POC 25 % PCV (42-52); Hemodilution- POC Yes; Hemoglobin Calculated - POC 8.7; Ionized Calcium - POC 1.02 mmol/L (1.15-1.33); Lactate - POC < 0.30 mmol/L (0.36-0.75); O2 Saturation %Calculated-POC 99.9 % (94-98); PCO2 - POC 41 mmHg (35-48); PO2 - POC 352 mmHg (83-108); Potassium - POC 4.3 mmol/L (3.5-5.1); Sodium - POC 137 mmol/L (136-145); Specimen Type - POC Arterial
[2025-04-01 12:10] LABS: B.E. - POC 2.6 mmol/L; Glucose - POC 150 mg/dl (70-99); HCO3 - POC 26 mmol/L (21-28); Hematocrit - POC 27 % PCV (42-52); Hemodilution- POC Yes; Hemoglobin Calculated - POC 9.1; Ionized Calcium - POC 1.03 mmol/L (1.15-1.33); Lactate - POC < 0.30 mmol/L (0.36-0.75); PCO2 - POC 32 mmHg (35-48); PO2 - POC 513 mmHg (83-108); Potassium - POC 4.8 mmol/L (3.5-5.1); Sodium - POC 137 mmol/L (136-145); Specimen Type - POC Arterial; pH - POC 7.51 (7.35-7.45)
[2025-04-01 12:21] LABS: ACT+ - POC 514 Seconds (82-134)
[2025-04-01 12:50] LABS: ACT+ - POC 134 Seconds (82-134)
--- NOTE | 2025-04-01 13:26 | W.IMMPOSTOP ---
Addendum entered and electronically signed by Buddy Cabezas MD 04/01/25 14:31:
[id number]
Original Note:
Surgical Immed Post Op Note
-
CARDIAC SURGERY OPERATIVE NOTE:
Preoperative Dx:
MVCAD
Newly diagnosed HFrEF (LVEF 25%)
Newly diagnosed metastatic prostate CA
Former smoker
Postoperative Dx:
Same
Procedures:
1) Median sternotomy
2) Takedown of MARY (narrowed pedicle)
3) Endoscopic RLE GSV harvest/prep
4) Placement of 10mm hemasheild graft on distal ascending aorta
5) CABG x 3 (MARY to LAD, GSV to D, GSV to RPDA)
6) ELAA
7) Aortotomy w/ direct placement of Impella 5.5
Surgeon:
Buddy Cabezas M.D.
Assistants:
Nicole Munson R.N.FDelilahADelilah - endoscopic harvest/prep of RLE GSV; permit review assistant throughout
Sami ArguellesCDelilah - [id number]-choj-[id number] closure
Perfusion:
Kaylin MckeonC.P.; XC: 101min, CPB: 144min
Anesthesia:
Juan Antonio Fontanez M.D.
Delfin Gibson C.R.N.A. and Matilde Ragsdale S.R.N.A.
Findings:
MARY was healthy appearing conduit w/ very brisk blood flow
GSV was healthy conduit w/ variable wall thickness
LAD was visible on the epicardial surface, no sig calcifications at distal midpoint anastomosis; ELD 3.0mm
D was visible on the epicardial surface, no sig calcificaitons at midpoint anastomosis; ELD 2.5mm
RPDA was obscured by epicardial adipose, but was identified in proximal third and had a reasonable ELD 2.5mm w/ slightly thickened girard
ALANA was of windsock morphology, excellent visual result of AtriClip at base, confirmed w/ THERESA
Trileaflet, normal appearing AV
Pre-THERESA: LVEF ~25% w/ global hypokinesis, RV normal, [id number] MR, no LV or ALANA thrombus
Post-THERESA: LVEF unable to be determined (Impella), RV normal, mild MR, ALANA excluded
Implants:
10mm Hemashield graft to distal ascending aorta
40mm AtriClip
Impella 5.5
CT x 4 (B/L pleural, inferior mediastinal, superior mediastinal)
Epicardial bipolar V-wire x 1
Sternal wires x 8
Transfusions:
1U PRBC
1pk PLTs
Complications:
None
Mild coagulopathy
Condition:
96 sinus (0.8/0.6), 83/62, 25/19, CVP 6; CO/CI: 4.9/2.4. 100%
Impella P-6; 3.5L/min
GTTS: levophed 8, vasopressin 0.03, dobutamine 2, precedex 0.5, insulin 1
[2025-04-01 13:36] LABS: B.E. - POC 1.3 mmol/L; Glucose - POC 177 mg/dl (70-99); HCO3 - POC 26 mmol/L (21-28); Hematocrit - POC 27 % PCV (42-52); Hemodilution- POC Yes; Hemoglobin Calculated - POC 9.2; Lactate - POC < 0.30 mmol/L (0.36-0.75); O2 Saturation %Calculated-POC 99.9 % (94-98); PCO2 - POC 41 mmHg (35-48); PO2 - POC 337 mmHg (83-108); Potassium - POC 4.2 mmol/L (3.5-5.1); Sodium - POC 138 mmol/L (136-145); Specimen Type - POC Arterial; pH - POC 7.41 (7.35-7.45)
--- NOTE | 2025-04-01 14:00 | CON.INTV ---
Consultation
Consultation Request
Date/Time Consultation Requested: 04/01/2025
Date/Time Consultation Performed: 04/01/2025
Requesting Provider: Dr. Cabezas
Performing Provider: Dr. Juma Montoya
Reason for Consultation: Status post coronary artery bypass-postoperative care
Medical History
-
History of Present Illness:
59-year-old man with unknown past medical history, prior tobacco use presented to the emergency room complaining of shortness of breath on 03/26/2025. Diagnosed with new onset heart failure. CT chest showed dense coronary calcifications. Possible
metastatic disease from prostate. PSA currently thousand.
Patient found to have elevated troponins. Subsequently scheduled for left heart catheterization.
EKG showed mildly dilated LV, global hypokinesis with ejection fraction 27%, normal RV. Mild to moderate MR. Small pericardial effusion.
Cardiac catheterization 03/26/2025: Showed significant multivessel coronary artery disease. Recommended surgical revascularization
Subsequently evaluated by CT surgery-eventually underwent coronary artery bypass 04/01/2025.
We were consulted for postoperative management (currently critical care unit. Intubated, sedated.
Unable to provide history.
Records reviewed and summarized as above.
Past Medical History
Past Medical History: Other (Denied)
Social History
Tobacco: Former Smoker (Quit about 8 years ago)
Alcohol: Occasional
Drug: None
Family History
Family History: Reviewed & Not Pertinent
Allergies / Home Medications
Allergies
Allergy/AdvReac Type Severity Reaction Status Date / Time
No Known Allergies Allergy Verified 03/26/25 06:42
Home Medications
�Medication �Instructions �Recorded �Confirmed �Last Taken �Type
No Meds [No Current Medications] 03/26/25 03/26/25 Unknown History
Review of Systems
Vitals / Labs / Diagnostic Testing
Vital Signs
Temp Pulse Resp BP Pulse Ox
98.7 F 91 18 112/69 98
04/01/25 04:36 04/01/25 05:53 04/01/25 04:36 04/01/25 05:53 04/01/25 05:14
Diagnostic Testing:
Physical Exam
-
HEENT: Normocephalic and Other (ET tube in place without secretion)
Cardiovascular: S1/S2 and Other (Impella in place on the right subclavian)
Respiratory: Clear and Other (Chest tube in place without air leak or pneumothorax.)
GI: Soft
Neurology: Other (Sedated, on mechanical ventilation.)
Skin: Warm
General: Comfortable
Assessment
-
59-year-old man with no significant past medical history came with shortness of breath. Found to have non-ST elevation myocardial infarction. Systolic cardiomyopathy-subsequently underwent left heart catheterization that showed significant
coronary artery disease. Was recommended for surgical revascularization. Underwent coronary artery bypass on 04/01/2025.
Status post CABG x 3 (MARY-LAD, GSV -D1, GSV-RPDA) w/ 40 mm AtriClip and 10mm hemashield graft on distal asc aorta, Impella placed 04/01/2025
Ischemic cardiomyopathy: Acute heart failure with reduced ejection fraction 27% and significant coronary disease. New diagnosis this admission.
Newly diagnosed prostate cancer with bony metastatic disease
Former smoker
Assessment and plan:
Postoperative day 0-currently on mechanical ventilation and appears comfortable.
ABG reviewed: 7.
Continue SIMV mode with no change
Spontaneous breathing trial per protocol once sedation wears off.
Anemia noted-no evidence of acute bleeding
Follow H&H serially
Hemodynamics -PA catheter in place
Impella device in place for hemodynamic support
Continue dobutamine/Levophed/vasopressin-wean off as able.
Follow renal function
Celestin urinary output
Continue GDMT per cardiology
Chest tube with no excessive drainage-no air leak.
Chest x-ray reviewed: No evidence for pneumothorax or fluid collection
Remain nothing by mouth
Head of the bed elevation
Prostate cancer: Oncology and urology following.
Emphysema on CAT scan:
Quit smoking 8 years ago.
No airflow obstruction on spirometry.
No evidence for lung nodules. CT chest on admission 03/26/2025.
Should continue with lung cancer screening if qualifies.
Glycemic control per protocol
DVT prophylaxis when safe from the surgical perspective.
Critical care statement: A total of 34 minutes of critical care time was provided for this patient today. This includes management of unstable vital signs, evaluation of the patient at bedside, reviewing the patient's pertinent medical records
including ventilator settings, arterial blood gases, radiographs, microbiology, laboratory evaluations and discussion with primary team, critical care nursing, and respiratory therapy.
Data reviewed:
CHEST CT 03/26/2025
Examination is negative for pulmonary embolism.
Bilateral pleural effusions. CT findings compatible with predominantly interstitial pulmonary edema pattern, likely on the basis of congestive heart failure.
Dense coronary artery calcifications are present. Please correlate with symptoms of and risk factors for coronary artery disease, with further workup as clinically appropriate..
CT findings highly suggestive of bony metastatic disease, and concern is raised for prostate carcinoma.
Mild to moderate changes of emphysema within the upper lungs.
-
Spirometry 03/30/2025:
FEV1/FVC 74%, FEV1 83%, FVC 86%. No significant airflow obstruction.
--- NOTE | 2025-04-01 14:09 | W.PN.UPDATE ---
Update Note
Progress Note Update
59-year-old male was admitted on 03/26/2025 with shortness of breath and orthopnea. Past medical history is significant for former tobacco use of [id number] history and prostate cancer with bone metastasis. A transthoracic echocardiogram was
completed on 03/26/2025 which reported an EF of 27% and mild-moderate mitral regurgitation. Max troponin was 0.087 consistent with TYpe II NSTEMI from acute heart failure. Patient was taken to the [facility] on 03/29/2025 and was found to have
triple-vessel coronary disease.
IV fluids: 1900
U.O.:� 1950
Blood:� 1PRBC, 1 plt
Wires:� 1 bipolar V-wire
Drips: Levophed @ 8, Vasopressin @ 0,03, Dobutamine @ 2, Precedex @ 0.5, Insulin
�
NEURO: sedated, pupils +2mm B/L
RESP: #8OT @24cm> 500/60%/14/5. Lungs clear B/L. 2 mediastinal (25cc on arrival) and R/L pleural (0cc on arrival) chest tubes to -20cm suction. Sanguineous drainage, no air leak, no crepitus
CV: RRR +S1, S2, no S3, no�rub, no murmur. Aquacell to median sternotomy. RIJ w/[place] locked @ 45cm. PA 29/19; CVP 9
ABD: round, soft, no BS
EXT: no edema, +2/4 DP pulses B/L, no femoral bruit, XXLE HOLGER wrap intact; XX radial A-line intact
: Celestin with clear yellow urine
�
A/P: POD #0 s/p CABG x 3 (MARY to LAD, GSV to D, GSV to RPDA), ELAA #40mm, direct placement of Impella 5.5
THERESA: EF�
- wean and extubate
#Acute cardiogenic chock w/HFrEF (27%)
- mechanical cardiac support with Central Impella 5.5 @ P level 6m flow 3.4L/min, PATIENT SERVICE REP 1.0
- likely removal on Saturday
- wean Levophed to 4 then wean Vasopressin
- will need GDMT with Toprol, Entresto, ARNI, SGLT2i
# CAD/Type II NSTEMI
- will require ASA, Plavix, statin
- resume beta-malcolm when off pressors
�
# acute surgical blood loss anemia-expected
- Hb 9.7
- trend CBC
�
�
# T2DM (A1C 7.2)
- not on meds at home
- insulin infusion x 48h
- DMNP consulted
�
# Prostate cancer with bone metastasis
- need urology f/u as outpatient
[2025-04-01 14:12] LABS: Glucose - Point of Care 183 mg/dl (70-99)
--- NOTE | 2025-04-01 14:17 | W.PN.CARDCBS ---
Addendum entered and electronically signed by Aubrey Hess MD 04/01/25 16:17:
I saw and examined the patient.
The Auto Body Estimator's note was reviewed and I agree with the note.
Comment: Briefly, 59-year-old man who presented last week in acute heart failure and was found to have severely reduced left ventricular ejection fraction in the setting of ischemic cardiomyopathy. He underwent surgical revascularization earlier
today with CABGx3.
Seen postoperatively in the CVICU where he remains intubated and sedated.
Impella 5 5 was placed intra-op for hemodynamic support and patient currently hemodynamically stable on P6 setting.
Filling pressures are on the low side therefore patient may require additional volume
Maintaining sinus rhythm on telemetry
Agree with current cardiac meds: Aspirin/Plavix/high intensity statin/beta-malcolm
Eventually add GDMT for HFrEF as blood pressure tolerates
Original Note:
Today's Communication / Plan
-
-post op CT care
Impression / Plan
-
PCP: None, no health insurance prior to admission
Primary Manager Location: none prior to admission, initial consult Dr Aubrey Hess
Oncology: seen initially by Dr. Caballero
Assessment:
MV CAD s/p CABG x 3 04/01/2025
Presented with SOB, orthopnea 03/26/2025
Acute heart failure with reduced EF, proBNP 1120
Hypertensive emergency
Sinus tachycardia
Elevated troponin, peak 0.087, treated as NSTEMI
SVT
Multivessel coronary artery disease on cath 03/29/2025
MARSHAL peak creatinine 1.5 on admission
Type 2 diabetes, hemoglobin A1c 7.0%, new diagnosis
Hyperlipidemia
Prostate cancer, PSA 1050 with concern for bony metastatic disease on chest CT
Former smoker
NSVT, 16 beat run 03/30/25
ECHO 03/26/25: Mildly dilated LV, global hypokinesis EF 27%, G3DD, normal RV, mild to moderate MR, small pericardial effusion
Cardiac catheterization 03/29/2025: Left main: Patent. LAD: Proximal to mid spanning across D1 60% stenosis, mid LAD stenosis spanning across D3 takeoff 50 to 60% stenosis. IFR positive at 0.84. Left circumflex: Mid 50% stenosis otherwise LI.
RCA: 100% chronic total occlusion of mid RCA with sxgl-at-kcutb collaterals. HEMODYNAMICS : (mmHg) RA (m) : 4; RV (s/d,m) : 25/3, 5; PA (s/d, m) : 23/14, 17; PCWP (m) : 8; Cardiac Output : 5.41 L/min; Cardiac Index : 2.58 L/min/m-2; Systemic
vascular resistance: 1315 dsc^(-5); Pulmonary vascular resistance: 1.66 baez unit
Plan:
-s/p CABG x 3 (MARY-LAD, GSV -D1, GSV-RPDA) w/ 40 mm AtriClip and 10mm hemashield graft on distal asc aorta, Impella placed 04/01/2025
-rec'd 1 uprbcs, 1 pk plts
-on Levo, Dobutamine, Vasopressin, precedex, insulin
-preop THERESA EF 25% w/ global HK, nl RV, mild -mod MR
-post op THERESA LVEF not determined (Impella), RV nl, mild MR
-telem personally reviewed: Sinus tachycardia HR low 100s, occ PVC
-post op care
-resume GDMT for HF started prior to surgery, as tolerated. Cost of meds may be an issue due to no medical insurance prior to admission-case mgmt aware and application for medical assistance sent. Pt was not able to aquiles entresto preop due to
hypotension/near syncope and may be too expensive. Farxiga may be too expensive. Was able to tolerated Coreg 6.25 mg bid.
-Amio for afib prophylaxis
-resume ASA/Plavix s/p NSTEMI
-had NSVT prior to surgery, cont to follow on telem., keep K>4.0, Mag >2.0
-Cardiac rehab consulted and will follow post-op for eventual outpatient program
-LDL as high as 165, new to atorvastatin 40 mg daily this admission.
-HgbA1c 7.0% and newly diagnosed DM 2. Consult in for DM by CLINICAL LABORATORY SCIENCE PROFESSOR. This is a new diagnosis for patient, he did not have a glucometer prior to admission.
-Patient also with newly diagnosed metastatic prostate cancer and now following with oncology. Started on Casodex this admission and eventual Lupron. He will need outpatient PET for staging. Oncology note reviewed by me quotes greater than 5 year
life expectancy.
Progress Note - Manager Location
Subjective
Date of Service: April 01, 2025
s/p CABG x 3 w/ LA clip, 10 mm hemishield graft to distal asc aorta, placement of Impella
remains on multiple pressors
In NSR
Objective
Labs:
Labs
Hgb 12.5 g/dL (13.0-18.0) L 03/30/25 02:38
Hct 35.4 % (39.0-52.0) L 03/30/25 02:38
Plt Count 188 10^3/uL (130-400) 03/30/25 02:38
PT 15.9 Sec (11.4-14.6) H 03/29/25 14:14
INR 1.24 03/29/25 14:14
APTT 107.2 Sec (23.4-35.0) H 03/29/25 14:14
Sodium 139 mmol/L (135-145) 03/31/25 04:56
Potassium 3.9 mmol/L (3.5-5.1) 03/31/25 04:56
BUN 37 mg/dl (9-20) H 03/31/25 04:56
Creatinine 1.3 mg/dL (0.7-1.3) 03/31/25 04:56
Glucose 131 mg/dl (70-99) H 03/31/25 04:56
Vital Signs and I&O:
Vital Signs
Temp Pulse Resp BP Pulse Ox
97.1 F 91 12 112/69 97
04/01/25 14:00 04/01/25 05:53 04/01/25 14:00 04/01/25 05:53 04/01/25 14:00
Vital Signs
Temp Pulse Resp BP Pulse Ox
97.1 F 91 12 112/69 97
04/01/25 14:00 04/01/25 05:53 04/01/25 14:00 04/01/25 05:53 04/01/25 14:00
Intake & Output
03/30/25 03/31/25 04/01/25 04/02/25
06:59 06:59 06:59 06:59
Intake Total 883 / 883 960 / 960 76.1 / 76.1
Output Total 1900 / 1900 1200 / 1200 900 / 900 590 / 590
Balance -1017 / -1017 -1200 / -1200 60 / 60 -513.9 / -513.9
Physical Exam
Physical Exam
GEN:intubated, sedated
LUNGS: on vent, no wheezes/rales
CV: hum from impella
ABD: soft, ND
EXT: No edema, LEs cool to touch
NEURO: sedated
SKIN: sternal incision w/ dressing, multiple chest tubes
[2025-04-01 14:20] LABS: B.E. -1.6 mmol/L; HCO3 25.1 mmol/L (21-28); Ionized Calcium 1.14 mMOL/L (1.15-1.33); PCO2 51 mmHg (35-48); PO2 112 mmHg (83-108); Potassium 4.1 mMOL/L (3.5-5.1); Sodium 136 mMOL/L (136-145)
[2025-04-01 14:31] LABS: Fibrinogen 486 MG/DL (199-459)
[2025-04-01 14:32] LABS: INR 1.48; PT 18.2 Sec (11.4-14.6)
[2025-04-01 14:33] LABS: B.E. - POC 0.1 mmol/L; Glucose - POC 173 mg/dl (70-99); HCO3 - POC 26 mmol/L (21-28); Hematocrit - POC 24 % PCV (42-52); Hemodilution- POC Yes; Hemoglobin Calculated - POC 8.2; Ionized Calcium - POC 1.29 mmol/L (1.15-1.33); Lactate - POC < 0.30 mmol/L (0.36-0.75); PCO2 - POC 47 mmHg (35-48); PO2 - POC 434 mmHg (83-108); Potassium - POC 3.9 mmol/L (3.5-5.1); Sodium - POC 139 mmol/L (136-145); Specimen Type - POC Arterial; pH - POC 7.35 (7.35-7.45)
[2025-04-01 14:33] LABS: APTT 35.4 Sec (23.4-35.0)
[2025-04-01 14:35] LABS: Lactic Acid 1.2 mmol/L (0.7-2.0)
[2025-04-01] MEDS: DILAUDID 0.5 MG IV ×2 (14:37→21:31)
[2025-04-01 14:38] LABS: Hematocrit 26.8 % (39.0-52.0); Hemoglobin 9.2 g/dL (13.0-18.0); Mean Corp Hgb Conc. 34.3 g/dL (33.0-37.0); Mean Corpuscular Hgb 28.7 pg (27.0-31.0); Mean Corpuscular Volume 83.5 fL (80.0-94.0); Mean Platelet Volume 9.1 fL (7.4-10.4); Platelet Count 193 10^3/uL (130-400); Red Blood Cell Count 3.21 10^6/uL (4.70-6.10); Red Cell Dist. Width 13.5 % (11.5-14.5); White Blood Cell Count 9.8 10^3/uL (4.8-10.8)
[2025-04-01] MEDS: CASODEX PO (14:38)
[2025-04-01] MEDS: ANCEF 10 IV ×2 (14:38)
[2025-04-01] MEDS: DESENEX/MITRAZOL/ZEASORB TOPICAL ×2 (14:38→21:19)
[2025-04-01] MEDS: NOVOLOG FLEXPEN SC ×2 (14:39→14:54)
[2025-04-01] MEDS: TYLENOL PO (14:39)
[2025-04-01] MEDS: NSS 500 IV (14:39)
[2025-04-01] MEDS: PACERONE PO (14:39)
[2025-04-01] MEDS: NEURONTIN PO ×2 (14:39→14:54)
[2025-04-01 14:40] LABS: D-Dimer 5.59 ug/mlFEU (0.00-0.50)
[2025-04-01 14:47] LABS: Blood Urea Nitrogen 31 mg/dl (9-20); Estimated Creatinine Clearance 78 ml/min; Glucose 171 mg/dl (70-99); Magnesium 2.5 mg/dl (1.6-2.3)
[2025-04-01 14:48] LABS: ALT (SGPT) 16 U/L (0-50); AST (SGOT) 41 U/L (17-59); Albumin 3.2 g/dl (3.5-5.0); Alkaline Phosphatase 246 U/L (38-126); Blood Urea Nitrogen 31 mg/dl (9-20); Calcium 8.2 mg/dl (8.4-10.2); Carbon Dioxide 24 mmol/L (22-30); Chloride 106 mmol/L (98-107); Estimated Creatinine Clearance 86 ml/min; Glucose 169 mg/dl (70-99); LDH 423 U/L (120-246); Potassium 4.3 mmol/L (3.5-5.1); Sodium 139 mmol/L (135-145); Total Bilirubin 0.8 mg/dl (0.2-1.3); Total Protein 5.3 g/dl (6.3-8.2); eGFR > 60.00
[2025-04-01] MEDS: LOW STRENGTH ASPIRIN PO (14:50)
[2025-04-01] MEDS: COLACE PO (14:50)
[2025-04-01] MEDS: COREG PO (14:50)
[2025-04-01] MEDS: LASIX PO (14:50)
[2025-04-01] MEDS: FLOMAX PO (14:50)
[2025-04-01] MEDS: CALCIUM GLUCONATE 100 IV (14:51)
--- NOTE | 2025-04-01 14:55 | PTCARENOTE ---
pt received from CVOR @~1400, sedated on Precedex gtt @0.5mcg/kg/hr, RASS -5. Core temp 97.1F, bear hugger applied as ordered. SR/ST on the monitor, HR 90-100s. V wires in place, box off. Impella 5.[address]@ P-6 as ordered, 3-point fixation in
place @32. PAP 20-30s/10s, CVP ~3-5. CI >2. Dobutamine gtt running as ordered. MAPs >65, Levophed and Vaso gtts running as ordered. palpable radial pulses, Doppler pedal pulses, feet cool to touch. pt mechanically ventilated, ETT #8.0, 24cm@lip.
SIMV 12, TV 550, PEEP5, FIO2 40%, POX 98%. lungs clear anteriorly. CTx4, no air leak or crepitus noted. pt abdomen s/n, hypoactive BS. Celestin in place, clear yellow urine. sternal aquacel in place, Impella site covered w/ aquacell. chest tube site
c/d/i. R groin puncture intact. RLE HOLGER bandage in place. RIJ cordis/swan maintained. L radial [place] flushed, zeroed, and calibrated. PIV x2. insulin gtt running as ordered. lab work drawn, EKG performed, CXR completed. PRN Dilaudid given as
ordered. BLANKET MAKER aware of lab results. pt awakens to voice, nods appropriately, LEIVA, drowsy. see worklist for VS, I&O, and assessment.
[2025-04-01 15:02] LABS: Glucose - Point of Care 192 mg/dl (70-99)
[2025-04-01] MEDS: LR 250 ML IV ×4 (15:42→21:19)
[2025-04-01 15:56] LABS: Glucose - Point of Care 169 mg/dl (70-99)
[2025-04-01] MEDS: OFIRMEV 100 IV (16:48)
--- NOTE | 2025-04-01 16:50 | PTCARENOTE ---
pt waking up, able to follow commands, LEIVA, follows commands. Ofirmev given for pain. pt placed on CPAP trial, tolerating. LR bolus given x2 as ordered.
[2025-04-01 17:01] LABS: Glucose - Point of Care 132 mg/dl (70-99)
[2025-04-01 17:29] LABS: B.E. - POC 0.7 mmol/L; Blood Urea Nitrogen - POC 26 mg/dl (3-120); Chloride - POC 103 mmol/L (96-111); Creatinine - POC 1.04 mg/dl (0.3-1.0); Glucose - POC 99 mg/dl (70-99); HCO3 - POC 25 mmol/L (21-28); Hematocrit - POC 25 % PCV (42-52); Hemodilution- POC No; Hemoglobin Calculated - POC 8.7; Ionized Calcium - POC 1.22 mmol/L (1.15-1.33); Lactate - POC 1.57 mmol/L (0.36-0.75); O2 Saturation %Calculated-POC 99.5 % (94-98); PCO2 - POC 38 mmHg (35-48); PO2 - POC 168 mmHg (83-108); Potassium - POC 3.7 mmol/L (3.5-5.1); Sodium - POC 141 mmol/L (136-145); Specimen Type - POC Arterial; pH - POC 7.42 (7.35-7.45)
[2025-04-01 17:36] LABS: Hematocrit 26.2 % (39.0-52.0); Hemoglobin 9.3 g/dL (13.0-18.0); Platelet Count 175 10^3/uL (130-400)
--- NOTE | 2025-04-01 17:50 | PTCARENOTE ---
Addendum entered by Jessica Johnson RN 04/01/25 18:28:
LR bolus x1 given.
Original Note:
pt washed w/ CHG wipes, gown and linens changed. face washed. turned and repositioned, no dumping from CTs. oral hygiene performed. EPOC done at bedside by HEIDI Ornelas, H&H sent. pt extubated @1734 to 6LNC, oriented x4, IS 1000ml. updated.
[2025-04-01 18:08] LABS: Glucose - Point of Care 111 mg/dl (70-99)
[2025-04-01] MEDS: LIPITOR PO (18:10)
[2025-04-01] MEDS: LEVOPHED 250 IV (18:14)
[2025-04-01] MEDS: KCL 50 IV (18:22)
[2025-04-01] MEDS: LOW STRENGTH ASPIRIN 81 MG PO (19:08)
--- NOTE | 2025-04-01 19:35 | PTCARENOTE ---
assumed care of patient @ 1900. received pt laying in bed, AOx3. ST low 100s on tele monitor. BP 90s/60s map 72, Paps 20s/10s, CVP 1-2. C.I >2. 5.5 Impella present in ascending aorta through right chest wall set to p6 with appropriate placement
waveforms and motor current. V wire present, insulated. Lungs clear, diminished on 4L satting high 90s. deep breathing and coughing encouraged. 4 chest tubes present to wall suction, no air leak, tidaling or crepitus noted. belly soft, hypoactive,
no nausea or vomiting. nelson present draining clear yellow urine. Sternal aquacel CDI, impella aquacel CDI, impella secured with 3 point fixation. R groin puncture and R leg SVG sites CDI LOSS PREVENTION ANALYST. R IJ cordis with swan at 49, L radial a line, PIV x2 all
patent. central lines zeroed, flushed. Received on dobut at 2, insulin per protocol, levo at 4.
[2025-04-01 19:51] LABS: Glucose - Point of Care 108 mg/dl (70-99)
[2025-04-01] MEDS: ROXICODONE 5 MG PO (19:52)
[2025-04-01 20:08] LABS: Lactic Acid 0.6 mmol/L (0.7-2.0)
[2025-04-01 20:14] LABS: LDH 506 U/L (120-246)
[2025-04-01 21:33] LABS: B.E. -1.7 mmol/L; O2 Saturation % 99.8 % (94-98); PCO2 38 mmHg (35-48); PO2 180 mmHg (83-108); Potassium 4.3 mMOL/L (3.5-5.1); pH 7.39 (7.35-7.45)
[2025-04-01] MEDS: SENOKOT-S PO (21:39)
[2025-04-01] MEDS: ANCEF 5 IV (21:54)
[2025-04-01] MEDS: CORDARONE 103 MG IV (22:00)
--- NOTE | 2025-04-01 22:05 | PTCARENOTE ---
pt with run of VT - dobut turned down to 1 per ctpa, amio bolus given.
[2025-04-01] MEDS: CORDARONE 518 MG IV (22:37)
[2025-04-01 22:46] LABS: Glucose - Point of Care 116 mg/dl (70-99)
[2025-04-01] MEDS: TYLENOL 1000 MG PO (22:48)
[2025-04-01] MEDS: NEURONTIN 100 MG PO (22:48)
[2025-04-01] MEDS: PACERONE 200 MG PO (22:48)
[2025-04-02] VITALS (34 sets, daily range): BP systolic 75–112; BP diastolic 61–80; BMI 26.7
[2025-04-02 00:09] LABS: Glucose - Point of Care 118 mg/dl (70-99)
[2025-04-02] MEDS: ROXICODONE 5 MG PO ×4 (00:14→21:59)
[2025-04-02] MEDS: BACTROBAN 2% OINTMENT 1 APPLIC NASAL ×3 (00:15→20:24)
[2025-04-02] MEDS: DILAUDID 0.5 MG IV ×3 (01:02→07:28)
[2025-04-02] MEDS: FLEXERIL 5 MG PO (02:13)
[2025-04-02 02:22] LABS: Glucose - Point of Care 116 mg/dl (70-99)
[2025-04-02 02:26] LABS: Hemoglobin 8.8 g/dL (13.0-18.0); Mean Corp Hgb Conc. 35.2 g/dL (33.0-37.0); Mean Corpuscular Hgb 28.8 pg (27.0-31.0); Mean Corpuscular Volume 81.7 fL (80.0-94.0); Mean Platelet Volume 9.5 fL (7.4-10.4); Platelet Count 179 10^3/uL (130-400); Red Blood Cell Count 3.06 10^6/uL (4.70-6.10); Red Cell Dist. Width 14.2 % (11.5-14.5); White Blood Cell Count 7.7 10^3/uL (4.8-10.8)
[2025-04-02 02:55] LABS: Lactic Acid 0.7 mmol/L (0.7-2.0)
[2025-04-02 02:56] LABS: Blood Urea Nitrogen 29 mg/dl (9-20); Calcium 8.9 mg/dl (8.4-10.2); Carbon Dioxide 25 mmol/L (22-30); Chloride 109 mmol/L (98-107); Estimated Creatinine Clearance 86 ml/min; Glucose 115 mg/dl (70-99); LDH 527 U/L (120-246); Magnesium 2.3 mg/dl (1.6-2.3); Potassium 4.3 mmol/L (3.5-5.1); Sodium 140 mmol/L (135-145); eGFR > 60.00
[2025-04-02 03:22] LABS: Fibrinogen 504 MG/DL (199-459)
[2025-04-02 03:25] LABS: D-Dimer 3.64 ug/mlFEU (0.00-0.50)
[2025-04-02] MEDS: ZOFRAN 4 MG IV (03:51)
--- NOTE | 2025-04-02 04:00 | PTCARENOTE ---
labs drawn and sent, pt requiring frequent pain medication see mar for details. developing mild hematuria, UO good, CTPA notified. C.I>2.
[2025-04-02 04:05] LABS: Glucose - Point of Care 110 mg/dl (70-99)
[2025-04-02] MEDS: TYLENOL 1000 MG PO ×3 (05:14→21:59)
[2025-04-02] MEDS: ANCEF 5 IV ×2 (05:15→12:18)
[2025-04-02 06:05] LABS: Glucose - Point of Care 88 mg/dl (70-99)
--- NOTE | 2025-04-02 06:30 | PTCARENOTE ---
dobut titrated to .[address] english
[2025-04-02] MEDS: NOVOLOG FLEXPEN SC ×3 (07:29→17:22)
[2025-04-02] MEDS: LIDOCAINE 4% PATCH 1 PATCH TOPICAL (07:29)
--- NOTE | 2025-04-02 07:30 | PN.DE.MGMTRT ---
Insulin Management
- -
04/02/2025 Diabetes Management Consult
Patient admitted 03/26 with increased difficulty breathing for 2 weeks - new onset CHF. PMH Prostate CA with possibly mets to bone, 50+year kristi smoker. Patient had cardiac cath 03/29 - Multivessel CAD. Prior to admission was taking no medications
for diabetes, A1C 7%, cr 1, eGFR > 60.
Patient is POD 1 s/p CABG x 3. Patient is awake alert and oriented, able to discuss diabetes care. Currently receiving insulin infusion critical care glycemic protocol receiving .4 to 2.3 units of insulin per hour.
Will continue glycemic protocol today, prepare to transition tomorrow. Consider metformin 500 mg BID with SGLT2. Per CM patient has no insurance, willsee if [place] is approved for [facility].
Discussed with nurse and CTNP.
Diabetes History
- -
Type of Diabetes: 2
Pre-Admission Diabetes Regimen
04/01/25 04/01/25 04/02/25
14:07 14:07 02:05
Creatinine 1.1 1.0 1.0
Lab Results
Hemoglobin A1c 7.0 % (4.0-5.6) H 03/27/25 03:04
Insulin Pump Settings
IP Diabetes Regimen
04/01/25 04/01/25 04/01/25
14:07 14:07 14:09
Glucose 171 H 169 H
POC Glucose 183 H
04/01/25 04/01/25 04/01/25
15:01 15:55 17:00
Glucose
POC Glucose 192 H 169 H 132 H
04/01/25 04/01/25 04/01/25
18:07 19:49 22:45
Glucose
POC Glucose 111 H 108 H 116 H
04/02/25 04/02/25 04/02/25
00:07 02:05 02:20
Glucose 115 H
POC Glucose 118 H 116 H
04/02/25 04/02/25
04:04 06:04
Glucose
POC Glucose 110 H 88
Patient Education
--- NOTE | 2025-04-02 07:31 | W.PN.ANS.POP ---
Anesthesia Post Operative
- Anesthesia Post Op Note
Vital Signs Stable-See Nursing Note: Yes (Patient on vasoactive support but maintaining VS CO and CI are stable. )
Airway Patent: Yes
Adequate Pain Control: Yes
Change in Mental Status: No
Current Postoperative Nausea & Vomiting: No
Anesthesia Complications: No
General Anesthetic Recall: No
Unplanned Admission: No
Post Op Hydration Adequate: Yes
--- NOTE | 2025-04-02 08:00 | PTCARENOTE ---
Received patient from applications engineer manufacturing RN; AAOx3, responds spontaneously to RN and follows commands; VSS; SR with ST on monitor; Friction rub present; Epicardial V-wire insulated; Impella 5.5 marked at 32 cm in right chest with 3 point fixation intact,
P-6 performance level; Trace B/L LE edema; +1 DP and +2 radial pulses; Shallow respirations; SpO2 94-100% on 2L NC; IS 750 ml; Chest tubes x4 connected to -20 cm wall suction draining serosanguineous drainage - no tidaling, crepitus, or air leak
noted; Poor appetite, hypoactive bowel sounds; Celestin catheter draining blood-tinged urine; Surgical sites intact; PIVx2 - #18 RAC and #18 right forearm; RIJ Cordis with Henderson-pratik floated to 49 cm, left radial A-line in place - all lines zeroed and
level; Levo, insulin, amiodarone, and dobutamine infusing - see nursing flowsheets for further details; See nursing documentation for further information
CO: 6.16
CI: 2.96
SVR: 961
[2025-04-02 08:04] LABS: Glucose - Point of Care 120 mg/dl (70-99)
--- NOTE | 2025-04-02 08:12 | W.PN.CT ---
Today's Communication / Plan
-
-pod #1
-drips: Levo 2, Dobut decreased to 0.5 at 6:30 an, Insulin, Amio 0.5
-CI 2.52, CO 5.25, SVR 1000
-CT outputs: 2 meds 95/190, 2 pleur 37/127 in 12/24 hrs
-Impella @ P6
-some hematuria - follow
-postop RBBB resolved
-6 beat NSVT last night 04/01 - gave Amio bolus and drip
-wean off Dobut as tolerated
-maintain swan, a-line, Celestin
-encourage IS, OOB
Assessment / Plan
-
- mv-CAD - s/p CABG x 3 (MARY to LAD, GSV to D, GSV to RPDA); ELAA; Aortotomy w/ direct placement of Impella 5.[address] Cabezas on 04/01/25, pod #1
- Pre-THERESA: LVEF ~25% w/ global hypokinesis, RV normal, [id number]-sm-xfefzseu MR, no LV or ALANA thrombus
- Post-THERESA: LVEF unable to be determined (Impella), RV normal, mild MR, ALANA excluded
- Ischemic cardiomyopathy (LVEF 25%)
- Newly diagnosed HFrEF
- Newly diagnosed metastatic prostate CA with bone mets (found on CT scan)
- Former smoker
- Acute postop blood loss anemia - s/p 1 pRBC
- Acute postop coagulopathy - s/p 1 unit platelets
- Acute postop atelectasis
- Suspected acute postop pericarditis/+ rub
- 6 beat NSVT 04/01
Discussed patient care with: Nursing and Care Team
Subjective
-
Date of Service: April 02, 2025
Objective Data
-
Lab Results
04/02/25 02:05
04/02/25 02:05
PT 18.2 Sec (11.4-14.6) H 04/01/25 14:07
INR 1.48 04/01/25 14:07
APTT 35.4 Sec (23.4-35.0) H 04/01/25 14:07
Vital Signs
Vital Signs
Temp Pulse Resp BP Pulse Ox
97.9 F 99 18 96/74 99
04/02/25 08:00 04/02/25 08:00 04/02/25 08:00 04/02/25 08:00 04/02/25 08:00
CT Intake/Output/Weight
04/01/25 04/02/25 04/02/25
18:59 06:59 18:59
Intake Total 1408.4 / 2504.7 1030.3 / 2504.7 92.0 / 92.0
Output Total 1410 / 2458 942 / 2458 187 / 187
Balance -1.6 / 46.7 88.3 / 46.7 -95.0 / -95.0
SaO2: 99
Physical Exam
-
General: Awake and AOx3
Cardiovascular: Regular rate & rhythm, No Murmurs and Rub
Respiratory: Decreased Breath Sounds
Sternum: Stable
Incision: Clean, Dry and Intact
Extremities: No Edema (2+ DPs b/l)
Abdomen: soft, nontender, nondistended, + bowel sounds
Data Reviewed
-
Lab Results: Results Reviewed
Medications: Active Meds Reviewed
Chest X-Ray: Report Reviewed and Image Reviewed
ECG: Report Reviewed and Image Reviewed
[2025-04-02] MEDS: LOPRESSOR PO (08:19)
[2025-04-02 08:30] LABS: Lactic Acid 0.6 mmol/L (0.7-2.0)
[2025-04-02] MEDS: DESENEX/MITRAZOL/ZEASORB TOPICAL ×3 (08:46→20:24)
[2025-04-02] MEDS: MAGNESIUM OXIDE 500 MG PO ×2 (08:46→20:23)
[2025-04-02] MEDS: FEOSOL 325 MG PO (08:46)
[2025-04-02] MEDS: PLAVIX 75 MG PO (08:46)
[2025-04-02] MEDS: CASODEX 50 MG PO (08:46)
[2025-04-02] MEDS: VITAMIN C 500 MG PO (08:46)
[2025-04-02] MEDS: PACERONE 200 MG PO ×3 (08:46→21:59)
[2025-04-02] MEDS: PROTONIX 40 MG PO (08:46)
[2025-04-02] MEDS: SENOKOT-S 1 TABLET PO ×2 (08:46→20:23)
[2025-04-02] MEDS: NEURONTIN 100 MG PO ×3 (08:46→21:59)
[2025-04-02] MEDS: LOW STRENGTH ASPIRIN 81 MG PO (08:46)
[2025-04-02] MEDS: LR 250 ML IV (08:51)
[2025-04-02] MEDS: LOPRESSOR 12.5 MG PO (08:51)
[2025-04-02 08:54] LABS: LDH 469 U/L (120-246)
[2025-04-02 10:11] LABS: Glucose - Point of Care 92 mg/dl (70-99)
--- NOTE | 2025-04-02 11:05 | PTCARENOTE ---
04/02/2025 Diabetes Education Consult
Visit to patient to discuss self monitoring glucose, patient asked for visit on Saturday.
[2025-04-02 12:13] LABS: Glucose - Point of Care 97 mg/dl (70-99)
[2025-04-02] MEDS: NOVOLIN R INSULIN INFUSION 100 IV (12:19)
--- NOTE | 2025-04-02 12:29 | PTCARENOTE ---
Levo weaned off; Suction alarm going off on Impella - CVNP Ceci Caceres notified, 250 ml LR bolus given, Impella turned down to P-4; Adjust LV signal alarming on Impella - CVNP Ceci Caceres notified and signal adjusted by GUIDANCE SERVICES COORDINATOR; Patient resting
comfortably in bed
--- NOTE | 2025-04-02 13:12 | W.PN.INTV ---
Today's Communication / Plan
Recommendations
Continue to wean down inotropes
Follow hemodynamics BL PA catheter
Impella device in place per cardiothoracic surgery
Monitor urinary output
Follow chest tube output
Analgesia
Will follow
Assessment
-
59-year-old man with no significant past medical history came with shortness of breath. Found to have non-ST elevation myocardial infarction. Systolic cardiomyopathy-subsequently underwent left heart catheterization that showed significant
coronary artery disease. Was recommended for surgical revascularization. Underwent coronary artery bypass on 04/01/2025.
Status post CABG x 3 (MARY-LAD, GSV -D1, GSV-RPDA) w/ 40 mm AtriClip and 10mm hemashield graft on distal asc aorta, Impella placed 04/01/2025
Ischemic cardiomyopathy: Acute heart failure with reduced ejection fraction 27% and significant coronary disease. New diagnosis this admission.
Newly diagnosed prostate cancer with bony metastatic disease
Former smoker
Assessment and plan:
Postoperative day 1
Extubated
On low rate supplemental oxygen
Sitting out of bed
Impella in place on the right subclavian
Anemia noted-no evidence of acute bleeding
Status post 1 unit of packed red blood cells
Follow H&H serially
Hemodynamics -PA catheter in place-continue to monitor hemodynamics and titrate inotropes.
Impella device in place for hemodynamic support
Wean off low-dose dobutamine as able
Levophed was weaned off this afternoon.
Amiodarone drip
Follow renal function-currently normal
Celestin urinary output
Continue GDMT per cardiology
Chest tube with no excessive drainage-no air leak.
Chest x-ray reviewed 04/02/2025: No evidence for pneumothorax or fluid collection
Remain nothing by mouth
Head of the bed elevation
Prostate cancer: Oncology and urology following.
Emphysema on CAT scan:
Quit smoking 8 years ago.
No airflow obstruction on spirometry.
No evidence for lung nodules. CT chest on admission 03/26/2025.
Should continue with lung cancer screening if qualifies.
Glycemic control per protocol
DVT prophylaxis when safe from the surgical perspective.
Critical care statement: A total of 31 minutes of critical care time was provided for this patient today. This includes management of unstable vital signs, evaluation of the patient at bedside, reviewing the patient's pertinent medical records
including ventilator settings, arterial blood gases, radiographs, microbiology, laboratory evaluations and discussion with primary team, critical care nursing, and respiratory therapy.
Data reviewed:
CHEST CT 03/26/2025
Examination is negative for pulmonary embolism.
Bilateral pleural effusions. CT findings compatible with predominantly interstitial pulmonary edema pattern, likely on the basis of congestive heart failure.
Dense coronary artery calcifications are present. Please correlate with symptoms of and risk factors for coronary artery disease, with further workup as clinically appropriate..
CT findings highly suggestive of bony metastatic disease, and concern is raised for prostate carcinoma.
Mild to moderate changes of emphysema within the upper lungs.
-
Spirometry 03/30/2025:
FEV1/FVC 74%, FEV1 83%, FVC 86%. No significant airflow obstruction.
Subjective Dataa
Subjective Data
Date of Service:
Date of Service: April 02, 2025
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
Subjective:
No significant overnight events
Continues with inotrope support and Impella device
Objective Data
Data Reviewed
Vital Signs / I&O / Oxygen:
Vital Signs
Temp Pulse Resp BP Pulse Ox
98.4 F 96 19 96/76 98
04/02/25 13:00 04/02/25 13:00 04/02/25 13:00 04/02/25 13:00 04/02/25 13:00
Intake and Output
04/01/25 04/02/25 04/03/25
06:59 06:59 06:59
Intake Total 960 / 960 2438.7 / 2504.7 776.4 / 776.4
Output Total 900 / 900 2352 / 2458 584 / 584
Balance 60 / 60 86.7 / 46.7 192.4 / 192.4
SaO2 [SIMV] 98
SaO2 98
Nasal Cannula flow liters per 2
minute
Physical Exam
Cardiovascular: Regular Rhythm
Respiratory: Clear, Non-Labored Respirations and Chest Tube (No excessive drainage or early)
GI: Soft and Non Distended
Neurology: Awake, Alert and Oriented
Skin: Warm
Labs/Micro/Reports
Lab Data
04/02/25 02:05
04/02/25 02:05
Laboratory Results
04/01/25 04/01/25
14:07 21:26
PT 18.2 H
INR 1.48
APTT 35.4 H
pH 7.30 L 7.39
pCO2 51 H 38
pO2 112 H 180 H
HCO3 25.1 23.0
O2 Delivery Level
--- NOTE | 2025-04-02 13:46 | W.PN.ONC2 ---
Today's Communication / Plan
-
no further inpt recommendations regarding prostate cancer. we can see upon request. please reach out for any further questions or concerns.
Impression
Impression
New onset systolic CHF
MV CAD s/p CABG 04/01
acute blood loss anemia s/p 1U prbc
Hx tobacco use disorder
Significant family history of cancer
Probable prostate cancer metastatic to bone, casodex started 03/29
Plan
Plan
Urology does not feel that biopsy is necessary for diagnosis since antiplatelet should not be stopped for bx and comfortable making diagnosis of prostate cancer based on PSA, bony mets, and abnormal prostate exam
continue Casodex 50 mg daily
outpt Lupron upon discharge
Germline mutation testing as well as somatic mutation testing indicated for outpt setting, may impact systemic therapy.
Subjective/Objective
Subjective
uncomfortable post op
Vital Signs:
Vital Signs
Temp Pulse Resp BP Pulse Ox
98.4 F 96 19 96/76 98
04/02/25 13:00 04/02/25 13:00 04/02/25 13:00 04/02/25 13:00 04/02/25 13:00
Lab Results:
Laboratory Data
WBC 7.7 10^3/uL (4.8-10.8) 04/02/25 02:05
Hgb 8.8 g/dL (13.0-18.0) L 04/02/25 02:05
Plt Count 179 10^3/uL (130-400) 04/02/25 02:05
PT 18.2 Sec (11.4-14.6) H 04/01/25 14:07
INR 1.48 04/01/25 14:07
APTT 35.4 Sec (23.4-35.0) H 04/01/25 14:07
eGFR > 60.00 04/02/25 02:05
Physical Exam
HEENT: Moist Mucous Membranes; No Jaundice
Pulmonary: Clear
GI: Soft
Extremities: Pulses Present
--- NOTE | 2025-04-02 13:53 | W.PN.CARDCBS ---
Addendum entered and electronically signed by Garcia Sanchez MD 04/02/25 15:07:
I saw and examined the patient.
The PATENTS EXAMINER or PA's note was reviewed and I agree with the note.
Comment: General: Well developed, well nourished in NAD.
Neck: Supple, no JVD, HJR, carotids +2 B/L, no bruits bilaterally.
Heart: Non displaced PMI, RRR, no murmurs, No S3, S4, no rubs.
Lungs: Scattered rhonchi
Sternal dressings noted
Extremities: No clubbing, cyanosis or edema bilaterally.
Neuro: Grossly nonfocal, awake, alert and oriented x3.
Stable from cardiology viewpoint. Remains on Impella. Remains on dobutamine at 5 mcg. Plan is to remove Impella on 04/05/2025. Hopefully dobutamine can be weaned off. Is on amiodarone for nonsustained V. tach. Discussed with CT surgery and
nursing
Original Note:
Today's Communication / Plan
-
Continue postop care
Amio for NSVT
Wean dobutamine
Remains on Impella with plan to remove 04/05
Impression / Plan
-
PCP: None, no health insurance prior to admission
Primary Hotel Director: none prior to admission, initial consult Dr Aubrey Hess
Oncology: seen initially by Dr. Caballero
Assessment:
MV CAD s/p CABG x 3 04/01/2025
Presented with SOB, orthopnea 03/26/2025
Acute heart failure with reduced EF, proBNP 1120
Hypertensive emergency
Sinus tachycardia
Elevated troponin, peak 0.087, treated as NSTEMI
SVT
Multivessel coronary artery disease on cath 03/29/2025
MARSHAL peak creatinine 1.5 on admission
Type 2 diabetes, hemoglobin A1c 7.0%, new diagnosis
Hyperlipidemia
Prostate cancer, PSA 1050 with concern for bony metastatic disease on chest CT
Former smoker
NSVT, 16 beat run 03/30/25, 6, 7 beat runs 04/01/2025 (post op)
ECHO 03/26/25: Mildly dilated LV, global hypokinesis EF 27%, G3DD, normal RV, mild to moderate MR, small pericardial effusion
Cardiac catheterization 03/29/2025: Left main: Patent. LAD: Proximal to mid spanning across D1 60% stenosis, mid LAD stenosis spanning across D3 takeoff 50 to 60% stenosis. IFR positive at 0.84. Left circumflex: Mid 50% stenosis otherwise LI.
RCA: 100% chronic total occlusion of mid RCA with rzgo-nm-phaju collaterals. HEMODYNAMICS : (mmHg) RA (m) : 4; RV (s/d,m) : 25/3, 5; PA (s/d, m) : 23/14, 17; PCWP (m) : 8; Cardiac Output : 5.41 L/min; Cardiac Index : 2.58 L/min/m-2; Systemic
vascular resistance: 1315 dsc^(-5); Pulmonary vascular resistance: 1.66 baez unit
Plan:
-s/p CABG x 3 (MARY-LAD, GSV -D1, GSV-RPDA) w/ 40 mm AtriClip and 10mm hemashield graft on distal asc aorta, Impella placed 04/01/2025
-rec'd 1 uprbcs, 1 pk plts
-on Dobutamine 0.5, Amio 0.5 insulin
-extubated
-Plan to remove Impella on Saturday, 04/05
-preop THERESA EF 25% w/ global HK, nl RV, mild -mod MR
-post op THERESA LVEF not determined (Impella), RV nl, mild MR
-telem personally reviewed: Sinus tachycardia HR 90s-110s, occ PVC, 7 beat, 6 beat run NSVT 04/01/2025
-started Amio gtt 04/01 for NSVT on telem. Also on oral Amio
-EKG NSR, nonspe ST-T abnl, QTc 482msec, no longer with RBBB
-eventually resume GDMT for HF started prior to surgery, as tolerated. Cost of meds may be an issue due to no medical insurance prior to admission-case mgmt aware and application for medical assistance sent. Pt was not able to aquiles entresto preop
due to hypotension/near syncope and may be too expensive. Farxiga may be too expensive. Was able to tolerated Coreg 6.25 mg bid. Currently on Metoprolol tartrate 12.5 mg bid
-Amio for afib prophylaxis
- ASA/Plavix/statin resumed s/p NSTEMI
-had NSVT prior to surgery, 2 runs overnight and started Amio gtt, keep K>4.0, Mag >2.0
-Cardiac rehab consulted and will follow post-op for eventual outpatient program
-LDL as high as 165, new to atorvastatin 40 mg daily this admission.
-HgbA1c 7.0% and newly diagnosed DM 2. Consult in for DM by PATENTS EXAMINER. This is a new diagnosis for patient, he did not have a glucometer prior to admission.
-Patient also with newly diagnosed metastatic prostate cancer and now following with oncology. Started on Casodex this admission and eventual Lupron as outpatient. He will need outpatient PET for staging. Oncology note reviewed by me quotes greater
than 5 year life expectancy. Urology does not feel that biopsy necessary for diagnosis since not stopping antiplatelets for biopsy and comfortable making diagnosis based on PSA, bony mets, and abnormal prostate exam
Progress Note - Hotel Director
Subjective
Date of Service: April 02, 2025
had 6, 7 beat runs NSVT overnight and started on amio drip. Remains in sinus rhythm
-Out of bed to chair
Objective
Labs:
04/02/25 02:05
04/02/25 02:05
Labs
Hgb 8.8 g/dL (13.0-18.0) L 04/02/25 02:05
Hct 25.0 % (39.0-52.0) L 04/02/25 02:05
Plt Count 179 10^3/uL (130-400) 04/02/25 02:05
PT 18.2 Sec (11.4-14.6) H 04/01/25 14:07
INR 1.48 04/01/25 14:07
APTT 35.4 Sec (23.4-35.0) H 04/01/25 14:07
Sodium 140 mmol/L (135-145) 04/02/25 02:05
Potassium 4.3 mmol/L (3.5-5.1) 04/02/25 02:05
BUN 29 mg/dl (9-20) H 04/02/25 02:05
Creatinine 1.0 mg/dL (0.7-1.3) 04/02/25 02:05
Glucose 115 mg/dl (70-99) H 04/02/25 02:05
Vital Signs and I&O:
Vital Signs
Temp Pulse Resp BP Pulse Ox
98.4 F 96 19 96/76 98
04/02/25 13:00 04/02/25 13:00 04/02/25 13:00 04/02/25 13:00 04/02/25 13:00
Vital Signs
Temp Pulse Resp BP Pulse Ox
98.4 F 96 19 96/76 98
04/02/25 13:00 04/02/25 13:00 04/02/25 13:00 04/02/25 13:00 04/02/25 13:00
Intake & Output
03/31/25 04/01/25 04/02/25 04/03/25
06:59 06:59 06:59 06:59
Intake Total 960 / 960 2438.7 / 2504.7 776.4 / 776.4
Output Total 1200 / 1200 900 / 900 2352 / 2458 584 / 584
Balance -1200 / -1200 60 / 60 86.7 / 46.7 192.4 / 192.4
Physical Exam
Physical Exam
GEN: No distress, awake, Ox3. Sitting in chair
HEENT: supple, anicteric, mmm
LUNGS: Decreased breath sound
CV: RRR, Impella
ABD: soft, BS+, NT/ND
EXT: No edema
NEURO: Gross non-focal
SKIN: sternal incision with aquacell drsg
[2025-04-02 14:12] LABS: Glucose - Point of Care 92 mg/dl (70-99)
[2025-04-02] MEDS: NSS 500 IV (15:00)
[2025-04-02 15:39] LABS: Lactic Acid 0.7 mmol/L (0.7-2.0)
[2025-04-02 15:44] LABS: LDH 409 U/L (120-246)
[2025-04-02] MEDS: LR 500 IV (16:03)
[2025-04-02 16:04] LABS: Glucose - Point of Care 125 mg/dl (70-99)
[2025-04-02] MEDS: REFRESH EYE DROPS (PF) 1 DROPS OPHTH (16:26)
--- NOTE | 2025-04-02 16:32 | PTCARENOTE ---
Patient OOB to chair with assist x2; Patient complains of blurry vision and light sensitivity that he states has been ongoing since prior to surgery - denies any blind spots or areas with lack of vision; LORA Ornelas notified and aware about vision
changes - PRN Artificial Tears ordered and given; Patient refusing to eat any meals all day - patient agreeable to drink chocolate protein shake this afternoon; Urine output decreasing and slight increase in hematuria noted - 500 ml LR bolus ordered
and given
--- NOTE | 2025-04-02 17:07 | CM ---
dc plans remain home when medically stable. and f/u visit from ct transitional care nurse.
[2025-04-02] MEDS: SODIUM BICARBONATE 1025 MEQ INF CATH (17:24)
[2025-04-02 17:58] LABS: Glucose - Point of Care 130 mg/dl (70-99)
[2025-04-02] MEDS: LIPITOR 40 MG PO (18:11)
--- NOTE | 2025-04-02 19:00 | PTCARENOTE ---
assumed care of patient @ 1900. received pt laying in bed, AOx3. NSR on tele monitor. BP 100s/50s map 73, Paps 30s/10s, CVP 1-2. C.I >2. 5.5 Impella present in ascending aorta through right chest wall set to p4 with appropriate placement waveforms
and motor current. V wire present, insulated. Lungs clear, diminished on 2L satting high 90s. deep breathing and coughing encouraged. 4 chest tubes present to wall suction, no air leak, tidaling or crepitus noted. belly soft, hypoactive, no nausea
or vomiting. nelson present draining portia colored urine urine. Sternal aquacel CDI, impella aquacel CDI, impella secured with 3 point fixation. R groin puncture and R leg SVG sites CDI MACHINE GUIDE BASE WINDER. R IJ cordis with swan at 49, L radial a line, PIV x2 all
patent. central lines zeroed, flushed. Received on dobut at .5, insulin per protocol, levo at 3.
[2025-04-02 20:06] LABS: Glucose - Point of Care 131 mg/dl (70-99)
[2025-04-02 20:17] LABS: Lactic Acid 0.7 mmol/L (0.7-2.0)
[2025-04-02] MEDS: CALCIUM GLUCONATE 100 IV (20:24)
[2025-04-02 20:30] LABS: LDH 378 U/L (120-246)
[2025-04-02 21:58] LABS: Glucose - Point of Care 128 mg/dl (70-99)
[2025-04-02] MEDS: CORDARONE 103 MG IV (23:44)
[2025-04-02 23:48] LABS: Glucose - Point of Care 103 mg/dl (70-99)
[2025-04-03] VITALS (29 sets, daily range): BP systolic 93–123; BP diastolic 62–91; BMI 27.9
--- NOTE | 2025-04-03 | PTCARENOTE ---
pt went into afib @ 2330. HR 100s-110s, BP 80s systolically on A line otherwise pt asymptomatic. CTPA wants to go by cuff pressure >85 systolically. will titrate levo accordingly. amio bolus ordered and given . no other change in assessment .
--- NOTE | 2025-04-03 00:30 | W.PN.CT ---
Today's Communication / Plan
-
Plan:
-No major issues overnight. Hemodynamically and neurologically intact
-Impella is intact @ P4, wean as tolerated, removal on 04/05
-On Dobutamine @ 0.5, Levophed @ 2, Amiodarone @ 1, and insulin gtt per protocol
-Pt went into a-fib with RVR (115) @ 2330 yesterday 04/02. Received amiodarone bolus x 1 and amiodarone gtt
-Last CI 2.68, 24hrs U/O 1280 mL
-h/h 8.1/22.9, monitor for possible transfusion, received 750 mL of LR yesterday, may be hemodilutional
-Monitor pleural chest tubes for possible d/c: ; 2meds 40/115
-Cont. PO Amiodarone, BB on hold while on Dobutamine
-Wean Impella, Dobutamine and Levophed as tolerated
-Maintain swan, a-line, cordis
-Maintain nelson catheter, hematuria resolving
-Will discontinue insulin gtt today per protocol
-Diabetes education/management f/u
-Wean off of O2
-Encourage use of IS
-OOB into chair
Assessment / Plan
-
- mv-CAD - s/p CABG x 3 (MARY to LAD, GSV to D, GSV to RPDA); ELAA; Aortotomy w/ direct placement of Impella 5.[address] Cabezas on 04/01/25, pod #2
- Pre-THERESA: LVEF ~25% w/ global hypokinesis, RV normal, zmfv-mq-eabvreig MR, no LV or ALANA thrombus
- Post-THERESA: LVEF unable to be determined (Impella), RV normal, mild MR, ALANA excluded
- NSTEMI (0.087)
- Ischemic cardiomyopathy (LVEF 25%)
- Newly diagnosed HFrEF
- Orthopnea
- Moderate bilateral pleural effusion
- Newly diagnosed metastatic prostate CA with bone mets (found on CT scan)
- Family hx of cancer
- HTN
- HLD
- T2DM (new diagnosis with A1C of 7.2)
- Preop MARSHAL
- Former tobacco use (50 pk/yr, quit 8 years ago)
- Acute postop blood loss anemia - s/p 1 pRBC
- Acute postop coagulopathy - s/p 1 unit platelets
- Acute postop atelectasis
- Suspected acute postop pericarditis/+ rub
- 6 beat NSVT 04/01
- Acute postop a-fib
- Acute postop hematuria
Discussed patient care with: Cardiology, Nursing, Respiratory Therapy, Pharmacy and Care Team
Subjective
-
Date of Service: April 03, 2025
Pt c/o incisional and pleuritic chest pain, otherwise feels well
Objective Data
-
PT 18.2 Sec (11.4-14.6) H 04/01/25 14:07
INR 1.48 04/01/25 14:07
APTT 35.4 Sec (23.4-35.0) H 04/01/25 14:07
Vital Signs
Vital Signs
Temp Pulse Resp BP Pulse Ox
98.3 F 102 16 95/74 97
04/03/25 00:00 04/03/25 00:00 04/03/25 00:00 04/03/25 00:00 04/03/25 00:00
CT Intake/Output/Weight
04/02/25 04/02/25 04/03/25
06:59 18:59 06:59
Intake Total 1030.3 / 2504.7 1925.1 / 2363.7 438.6 / 2363.7
Output Total 942 / 2458 799 / 1129 330 / 1129
Balance 88.3 / 46.7 1126.1 / 1234.7 108.6 / 1234.7
SaO2: 97 (2L)
Physical Exam
-
General: Awake, Oriented and AOx3
Cardiovascular: Irregular rate & rhythm and No Murmurs
Respiratory: Decreased Breath Sounds (at bases)
Sternum: Stable
Incision: Clean, Dry, Intact and Dressing Intact
Extremities: Other (+trace edema)
Data Reviewed
-
Lab Results: Results Reviewed
Medications: Active Meds Reviewed
Chest X-Ray: Report Reviewed and Image Reviewed
ECG: Report Reviewed and Image Reviewed
[2025-04-03] MEDS: CORDARONE 518 MG IV (01:09)
[2025-04-03] MEDS: ROXICODONE 5 MG PO ×4 (02:05→15:12)
[2025-04-03 02:19] LABS: Glucose - Point of Care 109 mg/dl (70-99)
[2025-04-03 02:21] LABS: Ionized Calcium 1.15 mMOL/L (1.15-1.33)
[2025-04-03 02:24] LABS: Hematocrit 22.9 % (39.0-52.0); Hemoglobin 8.1 g/dL (13.0-18.0); Mean Corp Hgb Conc. 35.4 g/dL (33.0-37.0); Mean Corpuscular Hgb 28.8 pg (27.0-31.0); Mean Corpuscular Volume 81.5 fL (80.0-94.0); Mean Platelet Volume 9.6 fL (7.4-10.4); Platelet Count 181 10^3/uL (130-400); Red Blood Cell Count 2.81 10^6/uL (4.70-6.10); Red Cell Dist. Width 14.1 % (11.5-14.5); White Blood Cell Count 8.5 10^3/uL (4.8-10.8)
[2025-04-03 02:33] LABS: Fibrinogen 584 MG/DL (199-459)
[2025-04-03 02:43] LABS: D-Dimer 3.91 ug/mlFEU (0.00-0.50)
[2025-04-03 02:45] LABS: Lactic Acid 0.8 mmol/L (0.7-2.0)
[2025-04-03 02:46] LABS: Blood Urea Nitrogen 33 mg/dl (9-20); Calcium 8.6 mg/dl (8.4-10.2); Carbon Dioxide 24 mmol/L (22-30); Chloride 104 mmol/L (98-107); Estimated Creatinine Clearance 72 ml/min; Glucose 109 mg/dl (70-99); LDH 367 U/L (120-246); Potassium 4.1 mmol/L (3.5-5.1); Sodium 135 mmol/L (135-145); eGFR > 60.00
--- NOTE | 2025-04-03 04:00 | PTCARENOTE ---
pt resting, sleeping between care. labs drawn and sent, will replete low ICAL with 2g CA gluc x2 per CTPA. no other change in assessment .
[2025-04-03] MEDS: CALCIUM GLUCONATE 100 IV ×2 (04:11→05:58)
[2025-04-03] MEDS: LEVOPHED 250 IV (04:13)
[2025-04-03 04:17] LABS: Glucose - Point of Care 117 mg/dl (70-99)
[2025-04-03] MEDS: DILAUDID 0.5 MG IV (04:20)
[2025-04-03 05:56] LABS: Glucose - Point of Care 101 mg/dl (70-99)
[2025-04-03] MEDS: TYLENOL 1000 MG PO ×3 (06:08→20:12)
[2025-04-03] MEDS: NOVOLOG FLEXPEN SC (07:30)
--- NOTE | 2025-04-03 07:33 | W.PN.CARDCBS ---
Today's Communication / Plan
-
Heparin for Impella
IV and p.o. amiodarone for new atrial fibrillation as well as NSVT
Reasonable for single platelet therapy plus NOAC when safe from a surgical perspective could even consider monotherapy with NOAC if there is concern for bleeding
Hemoglobin noted
Wean dobutamine
We will follow with you
Impression / Plan
-
PCP: None, no health insurance prior to admission
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
Oncology: seen initially by Dr. Caballero
Assessment:
MV CAD s/p CABG x 3 04/01/2025
Presented with SOB, orthopnea 03/26/2025
Acute heart failure with reduced EF, proBNP 1120
Hypertensive emergency
Sinus tachycardia
Elevated troponin, peak 0.087, treated as NSTEMI
SVT
Multivessel coronary artery disease on cath 03/29/2025
MARSHAL peak creatinine 1.5 on admission
Type 2 diabetes, hemoglobin A1c 7.0%, new diagnosis
Hyperlipidemia
Prostate cancer, PSA 1050 with concern for bony metastatic disease on chest CT
Former smoker
NSVT, 16 beat run 03/30/25, 6, 7 beat runs 04/01/2025 (post op)
ECHO 03/26/25: Mildly dilated LV, global hypokinesis EF 27%, G3DD, normal RV, mild to moderate MR, small pericardial effusion
Cardiac catheterization 03/29/2025: Left main: Patent. LAD: Proximal to mid spanning across D1 60% stenosis, mid LAD stenosis spanning across D3 takeoff 50 to 60% stenosis. IFR positive at 0.84. Left circumflex: Mid 50% stenosis otherwise LI.
RCA: 100% chronic total occlusion of mid RCA with opux-ai-qyrbo collaterals. HEMODYNAMICS : (mmHg) RA (m) : 4; RV (s/d,m) : 25/3, 5; PA (s/d, m) : 23/14, 17; PCWP (m) : 8; Cardiac Output : 5.41 L/min; Cardiac Index : 2.58 L/min/m-2; Systemic
vascular resistance: 1315 dsc^(-5); Pulmonary vascular resistance: 1.66 baez unit
Plan:
-s/p CABG x 3 (MARY-LAD, GSV -D1, GSV-RPDA) w/ 40 mm AtriClip and 10mm hemashield graft on distal asc aorta, Impella placed 04/01/2025
- Would wean dobutamine as the dobutamine and the metoprolol have some contradictory effects and he seems hemodynamically stable with an Impella in place
-Plan to remove Impella on Saturday, 04/05
-preop THERESA EF 25% w/ global HK, nl RV, mild -mod MR
-post op THERESA LVEF not determined (Impella), RV nl, mild MR
- He is now in atrial fibrillation with p.o. and IV amiodarone as well as metoprolol. Despite him having an AtriClip would be reasonable to give him 2 to 3 months of oral anticoagulation would pick Eliquis 5 mg twice daily once safe from a CT
surgical perspective and when he is off heparin can likely transition to the NOAC. He will require heparin throughout the weekend as he has an Impella in place.
-started Amio gtt 04/01 for NSVT on telem. Also on oral Amio. Now that he is having atrial fibrillation I have no objection to p.o. and IV amiodarone although if he converts to sinus likely can stop the IV amiodarone and continue p.o. load.
-EKG NSR, nonspe ST-T abnl, QTc 482msec, no longer with RBBB
-eventually resume GDMT for HF started prior to surgery, as tolerated. Cost of meds may be an issue due to no medical insurance prior to admission-case mgmt aware and application for medical assistance sent. Pt was not able to aquiles entresto preop
due to hypotension/near syncope and may be too expensive. Farxiga may be too expensive. Was able to tolerated Coreg 6.25 mg bid. Currently on Metoprolol tartrate 12.5 mg bid
-Amio for afib prophylaxis
- For his antiplatelet and oral anticoagulation regimen I would prefer either aspirin and NOAC or Plavix and NOAC and would avoid triple therapy given bleeding risk
-had NSVT prior to surgery, 2 runs overnight and started Amio gtt, keep K>4.0, Mag >2.0
-Cardiac rehab consulted and will follow post-op for eventual outpatient program
-LDL as high as 165, new to atorvastatin 40 mg daily this admission.
-HgbA1c 7.0% and newly diagnosed DM 2. Consult in for DM by POSTAL WORKER. This is a new diagnosis for patient, he did not have a glucometer prior to admission.
-Patient also with newly diagnosed metastatic prostate cancer and now following with oncology. Started on Casodex this admission and eventual Lupron as outpatient. He will need outpatient PET for staging. Oncology note reviewed by me quotes greater
than 5 year life expectancy. Urology does not feel that biopsy necessary for diagnosis since not stopping antiplatelets for biopsy and comfortable making diagnosis based on PSA, bony mets, and abnormal prostate exam
Progress Note - Clerical Warehouse Worker
Subjective
Date of Service: April 03, 2025
Feels well otherwise but in atrial fibrillation this morning
Objective
Labs:
04/03/25 02:11
04/03/25 02:11
Labs
Hgb 8.1 g/dL (13.0-18.0) L 04/03/25 02:11
Hct 22.9 % (39.0-52.0) L 04/03/25 02:11
Plt Count 181 10^3/uL (130-400) 04/03/25 02:11
PT 18.2 Sec (11.4-14.6) H 04/01/25 14:07
INR 1.48 04/01/25 14:07
APTT 35.4 Sec (23.4-35.0) H 04/01/25 14:07
Sodium 135 mmol/L (135-145) 04/03/25 02:11
Potassium 4.1 mmol/L (3.5-5.1) 04/03/25 02:11
BUN 33 mg/dl (9-20) H 04/03/25 02:11
Creatinine 1.2 mg/dL (0.7-1.3) 04/03/25 02:11
Glucose 109 mg/dl (70-99) H 04/03/25 02:11
Vital Signs and I&O:
Vital Signs
Temp Pulse Resp BP Pulse Ox
99 F 115 16 104/74 96
04/03/25 07:00 04/03/25 07:00 04/03/25 07:00 04/03/25 07:00 04/03/25 07:00
Vital Signs
Temp Pulse Resp BP Pulse Ox
99 F 115 16 104/74 96
04/03/25 07:00 04/03/25 07:00 04/03/25 07:00 04/03/25 07:00 04/03/25 07:00
Intake & Output
04/01/25 04/02/25 04/03/25 04/04/25
06:59 06:59 06:59 06:59
Intake Total 960 / 960 2438.7 / 2504.7 2761.4 / 2824.8 63.4 / 63.4
Output Total 900 / 900 2352 / 2458 1454 / 1529 75 / 75
Balance 60 / 60 86.7 / 46.7 1307.4 / 1295.8 -11.6 / -11.6
Physical Exam
Physical Exam
����Physical Exam
���������������������General:��no apparent distress, not acutely ill
Cordis in place
Right neck [place] Run in place
Sternum intact
Mediastinal tubes noted
Impella graft noted
���������������������������Neck:��supple. no meningeal signs. normal psoterior pharynx
������������������������
���������������������������Heart:��s1/s2 irregularly irregular, no murmur. equal radial pulses.
��������������������������Lungs: ��no acute respiratory distress. clear bilaterally
����������������������Abdomen:�normal bowel sounds. not tender. no CVAT
��������������������������Neuro:��alert and oriented. no focal neurological deficits
������������������������������Skin: ��no rash
�����������������������Psychiatric:�well kept. interactive and cooperative
�����������������������Extremities:��no edema. no calf tenderness. negative homans. good distal pulses
��
�
--- NOTE | 2025-04-03 08:00 | PTCARENOTE ---
Addendum entered by Jessica Johnson RN 04/03/25 14:21:
pt states has 'light sensitivity' feels like 'he is looking through camouflage', states had some light sensitivity pre op. no visual cuts or other neurological deficits, FAMILY MANAGER Ceci at bedside.
Original Note:
pt received from previous RN, oriented, in bed. Afib on the monitor, HR 100-120s. Amiodarone gtt running per protocol. V-wires in place, pacer box off. Impella @P-4. SBP 90-110s. MAPs >65, Levophed gtt running as ordered. PAP 30s/10s, CVP~3-5. CI>2.
Dobutamine gtt @0.5mcg/kg/min. palpable pulses. pt on 2LNC, 95-97% POX. lungs diminished. pt states +productive cough. IS encouraged. CTx4, no air leak or crepitus noted. pt abdomen s/n, denies n/v. poor appetite, hypoactive BS. Celestin in place,
clear yellow urine. sternal and Impella Aquacel in place. chest tube dressing c/d/i. R groin puncture and RLE incision DANNY. RIJ Cordis/swan maintained. PIV x2. insulin gtt running as ordered. see worklist for VS, I&O, and assessment.
[2025-04-03 08:13] LABS: Glucose - Point of Care 109 mg/dl (70-99)
[2025-04-03] MEDS: PROTONIX 40 MG PO (08:43)
[2025-04-03] MEDS: FEOSOL 325 MG PO (08:43)
[2025-04-03] MEDS: PLAVIX 75 MG PO (08:43)
[2025-04-03] MEDS: NEURONTIN 100 MG PO ×3 (08:43→20:11)
[2025-04-03] MEDS: SENOKOT-S 1 TABLET PO ×2 (08:43→20:12)
[2025-04-03] MEDS: LOW STRENGTH ASPIRIN 81 MG PO (08:43)
[2025-04-03] MEDS: CASODEX 50 MG PO (08:43)
[2025-04-03] MEDS: MAGNESIUM OXIDE 500 MG PO ×2 (08:43→20:12)
[2025-04-03] MEDS: BACTROBAN 2% OINTMENT 1 APPLIC NASAL ×2 (08:44→20:11)
[2025-04-03] MEDS: LIDOCAINE 4% PATCH TOPICAL (08:44)
[2025-04-03] MEDS: VITAMIN C 500 MG PO (08:44)
[2025-04-03] MEDS: PACERONE 200 MG PO ×3 (08:44→20:13)
[2025-04-03] MEDS: DESENEX/MITRAZOL/ZEASORB TOPICAL ×2 (08:44→20:12)
[2025-04-03 09:17] LABS: APTT 44.1 Sec (23.4-35.0)
[2025-04-03] MEDS: SODIUM BICARBONATE 1025 MEQ INF CATH (09:20)
[2025-04-03 09:21] LABS: Lactic Acid 0.8 mmol/L (0.7-2.0)
[2025-04-03] MEDS: HEPARIN 25000 UNITS/250 ML IV (09:47)
[2025-04-03 09:55] LABS: Glucose - Point of Care 98 mg/dl (70-99)
[2025-04-03 10:20] LABS: LDH 410 U/L (120-246)
--- NOTE | 2025-04-03 10:30 | PTCARENOTE ---
labs drawn, GAS PUMPING STATION OPERATOR aware of results. R&L pleural CTs dc'd as ordered w/ another RN. dressing c/d/i. Heparin gtt started per orders.
[2025-04-03] MEDS: NSS 500 IV (11:12)
--- NOTE | 2025-04-03 12:00 | PTCARENOTE ---
Addendum entered by Jessica Johnson RN 04/03/25 16:22:
pt converted to ST, HR 100s @~1122, DATA TECHNICAL LEAD aware.
Original Note:
pt VSS, resting between care. Roxicodone for pain. IS encouraged. educated on sternal precautions. and daughter at bedside and updated. DATA TECHNICAL LEAD aware of hemodynamics.
[2025-04-03 12:15] LABS: Glucose - Point of Care 172 mg/dl (70-99)
[2025-04-03 13:59] LABS: Glucose - Point of Care 196 mg/dl (70-99)
[2025-04-03] MEDS: NOVOLOG FLEXPEN 4 UNITS SC (14:43)
[2025-04-03 15:14] LABS: APTT 80.8 Sec (23.4-35.0)
[2025-04-03 15:17] LABS: Glucose - Point of Care 96 mg/dl (70-99)
--- NOTE | 2025-04-03 15:34 | W.PN.INTV ---
Today's Communication / Plan
Recommendations
- Continue to wean dobutamine and Levophed as tolerated
- Incentive spirometry
Assessment
-
59-year-old man with no significant past medical history came with shortness of breath. Found to have non-ST elevation myocardial infarction. Systolic cardiomyopathy-subsequently underwent left heart catheterization that showed significant
coronary artery disease. Was recommended for surgical revascularization. Underwent coronary artery bypass on 04/01/2025.
Status post CABG x 3 (MARY-LAD, GSV -D1, GSV-RPDA) w/ 40 mm AtriClip and 10mm hemashield graft on distal asc aorta, Impella placed 04/01/2025
Ischemic cardiomyopathy: Acute heart failure with reduced ejection fraction 27% and significant coronary disease. New diagnosis this admission.
Newly diagnosed prostate cancer with bony metastatic disease
Former smoker
04/03 overview. Patient currently receiving amiodarone infusion, insulin infusion and heparin drip. Levophed infusing at 2 and dobutamine infusing at 0.5. Patient has Impella in place with flow at around 2 L. Saturating 94% on 2 L supplemental
oxygen. MAP around 92. Pulmonary artery pressures 31/11 with a mean of 19.
Assessment and plan:
Postoperative day 2
Extubated
On low rate supplemental oxygen, 2 L
Sitting out of bed
Impella in place
Anemia noted-no evidence of acute bleeding
Hemodynamics -PA catheter in place-continue to monitor hemodynamics and titrate inotropes.
Impella device in place for hemodynamic support
Wean off low-dose dobutamine as able
Levophed was weaned off this afternoon.
Amiodarone drip
Follow renal function-currently normal
Celestin urinary output
Continue GDMT per cardiology
Chest tube with no excessive drainage-no air leak.
Chest x-ray reviewed 04/02/2025: No evidence for pneumothorax or fluid collection
Remain nothing by mouth
Head of the bed elevation
Prostate cancer: Oncology and urology following.
Emphysema on CAT scan:
Quit smoking 8 years ago.
No airflow obstruction on spirometry.
No evidence for lung nodules. CT chest on admission 03/26/2025.
Should continue with lung cancer screening if qualifies.
Glycemic control per protocol
DVT prophylaxis when safe from the surgical perspective.
Critical care statement: A total of 48 minutes of critical care time was provided for this patient today. This includes management of unstable vital signs, evaluation of the patient at bedside, reviewing the patient's pertinent medical records
including ventilator settings, arterial blood gases, radiographs, microbiology, laboratory evaluations and discussion with primary team, critical care nursing, and respiratory therapy.
Data reviewed:
CHEST CT 03/26/2025
Examination is negative for pulmonary embolism.
Bilateral pleural effusions. CT findings compatible with predominantly interstitial pulmonary edema pattern, likely on the basis of congestive heart failure.
Dense coronary artery calcifications are present. Please correlate with symptoms of and risk factors for coronary artery disease, with further workup as clinically appropriate..
CT findings highly suggestive of bony metastatic disease, and concern is raised for prostate carcinoma.
Mild to moderate changes of emphysema within the upper lungs.
-
Spirometry 03/30/2025:
FEV1/FVC 74%, FEV1 83%, FVC 86%. No significant airflow obstruction.
Subjective Dataa
Subjective Data
Date of Service:
Date of Service: April 03, 2025
Chief Complaint: Cyber Legal Advisor Follow Up (Status postcoronary bypass)
Subjective:
Patient comfortably sitting in bed in no acute distress.
Review of Systems
Genitourinary: Other (No new symptoms reported)
Objective Data
Data Reviewed
Vital Signs / I&O / Oxygen:
Vital Signs
Temp Pulse Resp BP Pulse Ox
99.6 F 117 23 104/66 93
04/03/25 15:00 04/03/25 15:00 04/03/25 15:00 04/03/25 15:00 04/03/25 15:00
Intake and Output
04/02/25 04/03/25 04/04/25
06:59 06:59 06:59
Intake Total 2438.7 / 2504.7 2761.4 / 2824.8 549.7 / 549.7
Output Total 2352 / 2458 1454 / 1529 770 / 770
Balance 86.7 / 46.7 1307.4 / 1295.8 -220.3 / -220.3
SaO2 [SIMV] 98
SaO2 93
Nasal Cannula flow liters per 2
minute
Physical Exam
HEENT: Normocephalic
Cardiovascular: Regular Rhythm
Respiratory: Clear, Non-Labored Respirations and Chest Tube (No excessive drainage or early)
GI: Soft and Non Distended
Neurology: Awake, Alert and Oriented
Skin: Warm
Labs/Micro/Reports
Lab Data
04/03/25 02:11
04/03/25 02:11
Laboratory Results
04/03/25 04/03/25
08:52 14:49
APTT 44.1 H 80.8 H
[2025-04-03 15:35] LABS: LDH 452 U/L (120-246)
--- NOTE | 2025-04-03 16:00 | PTCARENOTE ---
pt VSS, pt OOB to chair w/ assistance. pt c/o dizziness and lightheadedness at times sitting in chair, CRUSHED STONE GRADER aware. IS encouraged. oral hygiene performed. insulin gtt dc'd as ordered.
[2025-04-03] MEDS: LIPITOR 40 MG PO (17:16)
[2025-04-03] MEDS: GLUCOPHAGE 500 MG PO (17:16)
[2025-04-03 17:53] LABS: Glucose - Point of Care 149 mg/dl (70-99)
--- NOTE | 2025-04-03 20:00 | PTCARENOTE ---
assumed care of patient @ 1900. received pt sitting in chair AOx3. NSR on tele monitor. Paps 30s/10s, CVP 6-10. C.I >2. 5.5 Impella present in ascending aorta through right chest wall set to p4 with appropriate placement waveforms and motor
current. V wire present, insulated. Lungs clear, diminished on 2L satting high 90s. deep breathing and coughing encouraged. 2 chest tubes present to wall suction, no air leak, tidaling or crepitus noted. belly soft, hypoactive, no nausea or
vomiting. nelson present draining portia colored urine urine. Sternal aquacel CDI, impella aquacel CDI, impella secured with 3 point fixation. R groin puncture and R leg SVG sites CDI DANNY. R IJ cordis with swan at 49, L radial a line, PIV x2 all
patent. central lines zeroed, flushed. Received on dobut at .5, levo at 2, heparin at 1000. assisted pt back to bed with steady gait. now resting comfortaby in bed
[2025-04-03 20:10] LABS: Glucose - Point of Care 167 mg/dl (70-99)
[2025-04-03 20:24] LABS: Lactic Acid 0.9 mmol/L (0.7-2.0)
[2025-04-03 20:25] LABS: APTT 109.4 Sec (23.4-35.0)
[2025-04-03 20:57] LABS: LDH 451 U/L (120-246)
[2025-04-03] MEDS: ULTRAM 50 MG PO (23:34)
[2025-04-04] VITALS (26 sets, daily range): BP systolic 92–131; BP diastolic 59–93; BMI 27.6
--- NOTE | 2025-04-04 | PTCARENOTE ---
pt resting comfortably, no change in assessment.
--- NOTE | 2025-04-04 03:43 | W.PN.CT ---
Today's Communication / Plan
-
Plan:
-No major issues overnight. Hemodynamically and neurologically intact
-Impella is intact @ P4, wean as tolerated, removal on 04/05
-On Dobutamine @ 0.5, Levophed, Amiodarone insulin gtt per protocol
-Pt went into a-fib with RVR (115) @ 2330 yesterday 04/02. Received amiodarone bolus x 1 and amiodarone gtt
-Last CI 3.66, 24hrs U/O 1930 mL
-h/h 6.8/19.8, was 8.1/22.9, will transfuse 1u PRBC for now, will likely benefit from 2u PRBCs with Lasix after. C/O dizziness yesterday when OOB into chair
-Monitor mediastinal chest tubes: 2meds ; pleural chest tube d/c'd yesterday 04/03
-Cont. PO Amiodarone, BB on hold while on Dobutamine
-Wean Impella, Dobutamine and Levophed as tolerated
-Maintain swan, a-line, cordis
-Maintain nelson catheter, hematuria resolving
-Diabetes education/management f/u
-Wean off of O2
-Encourage use of IS
-OOB into chair
-D/C'd Roxicodone given c/o of visual field changes/photosensitivity
Assessment / Plan
-
- mv-CAD - s/p CABG x 3 (MARY to LAD, GSV to D, GSV to RPDA); ELAA; Aortotomy w/ direct placement of Impella [address] Cabezas on 04/01/25, pod #3
- Pre-THERESA: LVEF ~25% w/ global hypokinesis, RV normal, luhy-fb-akjyzraw MR, no LV or ALANA thrombus
- Post-THERESA: LVEF unable to be determined (Impella), RV normal, mild MR, ALANA excluded
- NSTEMI (0.087)
- Ischemic cardiomyopathy (LVEF 25%)
- Newly diagnosed HFrEF
- Orthopnea
- Moderate bilateral pleural effusion
- Newly diagnosed metastatic prostate CA with bone mets (found on CT scan)
- Family hx of cancer
- HTN
- HLD
- T2DM (new diagnosis with A1C of 7.2)
- Preop MARSHAL
- Former tobacco use (50 pk/yr, quit 8 years ago)
- Acute postop blood loss anemia - s/p 1 pRBC
- Acute postop coagulopathy - s/p 1 unit platelets
- Acute postop atelectasis
- Suspected acute postop pericarditis/+ rub
- 6 beat NSVT 04/01
- Acute postop a-fib
- Acute postop hematuria
Discussed patient care with: Cardiology, Nursing, Respiratory Therapy, Pharmacy and Care Team
Subjective
-
Date of Service: April 04, 2025
Pt c/o mild incisional pain, otherwise feels well. Photosensitivity has improved
Objective Data
-
PT 18.2 Sec (11.4-14.6) H 04/01/25 14:07
INR 1.48 04/01/25 14:07
APTT 109.4 Sec (23.4-35.0) H 04/03/25 20:03
Vital Signs
Vital Signs
Temp Pulse Resp BP Pulse Ox
98.9 F 102 29 109/70 95
04/04/25 03:00 04/04/25 03:20 04/04/25 03:20 04/04/25 03:00 04/04/25 03:[address]
CT Intake/Output/Weight
04/03/25 04/03/25 04/04/25
06:59 18:59 06:59
Intake Total 836.3 / 2824.8 682.5 / 1257.7 575.2 / 1257.7
Output Total 655 / 1529 975 / 1775 800 / 1775
Balance 181.3 / 1295.8 -292.5 / -517.3 -224.8 / -517.3
SaO2: 95
Physical Exam
-
General: Awake, Oriented and AOx3
Cardiovascular: Regular rate & rhythm and No Murmurs
Respiratory: Decreased Breath Sounds (at bases, otherwise clear )
Sternum: Stable
Incision: Clean, Dry, Intact and Dressing Intact
Extremities: Other (+trace edema)
Data Reviewed
-
Lab Results: Results Reviewed
Medications: Active Meds Reviewed
Chest X-Ray: Report Reviewed and Image Reviewed
ECG: Report Reviewed and Image Reviewed
[2025-04-04 03:48] LABS: Hematocrit 19.8 % (39.0-52.0); Hemoglobin 6.8 g/dL (13.0-18.0); Mean Corp Hgb Conc. 34.3 g/dL (33.0-37.0); Mean Corpuscular Hgb 28.1 pg (27.0-31.0); Mean Corpuscular Volume 81.8 fL (80.0-94.0); Mean Platelet Volume 9.8 fL (7.4-10.4); Platelet Count 147 10^3/uL (130-400); Red Blood Cell Count 2.42 10^6/uL (4.70-6.10); Red Cell Dist. Width 13.8 % (11.5-14.5); White Blood Cell Count 7.8 10^3/uL (4.8-10.8)
[2025-04-04 03:49] LABS: APTT 134.6 Sec (23.4-35.0); Fibrinogen 611 MG/DL (199-459)
[2025-04-04 04:00] LABS: D-Dimer 4.17 ug/mlFEU (0.00-0.50)
--- NOTE | 2025-04-04 04:13 | PTCARENOTE ---
pt resting comfortably, labs drawn and sent. Hemoglobin 6.8 , CTPA notified. will give 1u prbc when type and screen is resulted. PTT high, results communicated to CTPA. CTPA says to hold for 2 hours , then decrease rate.
[2025-04-04 04:34] LABS: Lactic Acid 0.7 mmol/L (0.7-2.0)
[2025-04-04 04:51] LABS: Blood Urea Nitrogen 27 mg/dl (9-20); Calcium 8.2 mg/dl (8.4-10.2); Carbon Dioxide 23 mmol/L (22-30); Chloride 105 mmol/L (98-107); Estimated Creatinine Clearance 86 ml/min; Glucose 125 mg/dl (70-99); Magnesium 1.8 mg/dl (1.6-2.3); Potassium 3.9 mmol/L (3.5-5.1); Sodium 133 mmol/L (135-145); eGFR > 60.00
[2025-04-04] MEDS: KCL 20 MEQ PO ×2 (05:21→22:04)
[2025-04-04] MEDS: TYLENOL 1000 MG PO ×3 (05:22→22:04)
[2025-04-04] MEDS: DOBUTREX 500 MG 250 IV (05:29)
[2025-04-04] MEDS: NSS 500 IV (05:34)
[2025-04-04] MEDS: MAGNESIUM SULFATE 102 GRAMS IV (05:38)
--- NOTE | 2025-04-04 08:00 | PTCARENOTE ---
Addendum entered by Jessica Johnson RN 04/04/25 10:45:
amiodarone gtt off*
Original Note:
pt received from previous RN, oriented, in bed. pt states vision is slightly improved compared to yesterday. SR/ST on the monitor, HR 90-100s. Amiodarone gtt running per protocol. V-wires in place, pacer box off. Impella @P-4. SBP 100-120s. MAPs
>65. PAP 30s/10s, CVP~10. CI>2. Dobutamine gtt @0.5mcg/kg/min. palpable pulses. pt on 2LNC, 96% POX. lungs diminished. pt states +productive cough. IS encouraged. CTx2, no air leak or crepitus noted. pt abdomen s/n, denies n/v. +BS, +flatus per pt.
Celestin in place. sternal and Impella Aquacel in place. chest tube dressing c/d/i. R groin puncture and RLE incision SUPERVISOR NET MAKING. RIJ Cordis/swan maintained. PIV x2. heparin gtt running as ordered. see worklist for VS, I&O, and assessment.
[2025-04-04] MEDS: CASODEX 50 MG PO (08:20)
[2025-04-04] MEDS: VITAMIN C 500 MG PO (08:20)
[2025-04-04] MEDS: GLUCOPHAGE 500 MG PO ×2 (08:20→17:57)
[2025-04-04] MEDS: LOW STRENGTH ASPIRIN 81 MG PO (08:20)
[2025-04-04] MEDS: NEURONTIN 100 MG PO ×3 (08:20→22:04)
[2025-04-04] MEDS: FEOSOL 325 MG PO (08:20)
[2025-04-04] MEDS: PACERONE 200 MG PO ×3 (08:20→22:05)
[2025-04-04] MEDS: SENOKOT-S 1 TABLET PO (08:20)
[2025-04-04] MEDS: MAGNESIUM OXIDE 500 MG PO ×2 (08:20→19:59)
[2025-04-04] MEDS: LIDOCAINE 4% PATCH TOPICAL (08:21)
[2025-04-04] MEDS: PROTONIX 40 MG PO (08:21)
[2025-04-04] MEDS: DESENEX/MITRAZOL/ZEASORB TOPICAL ×2 (08:21→20:02)
[2025-04-04] MEDS: BACTROBAN 2% OINTMENT 1 APPLIC NASAL ×2 (08:21→20:00)
[2025-04-04] MEDS: ULTRAM 50 MG PO ×2 (08:23→19:59)
[2025-04-04 08:30] LABS: Glucose - Point of Care 149 mg/dl (70-99)
[2025-04-04] MEDS: NOVOLOG FLEXPEN-MODERATE RESISTANCE SC ×2 (08:32→17:58)
[2025-04-04 08:33] LABS: LDH 468 U/L (120-246)
[2025-04-04 08:38] LABS: Lactic Acid 0.7 mmol/L (0.7-2.0)
[2025-04-04 08:49] LABS: LDH 478 U/L (120-246)
--- NOTE | 2025-04-04 10:21 | PTCARENOTE ---
Addendum entered by Jessica Johnson RN 04/04/25 10:46:
dobutamine gtt off per Dr. Cabezas.
Original Note:
labs drawn, 1 unit PRBC transfused as ordered. pt OOB to chair x2 assist, pt states feels better than yesterday. attempted BSC, no BM. chest PT performed in chair. IS encouraged. +thick productive cough.
--- NOTE | 2025-04-04 10:31 | W.PN.CARDCBS ---
Today's Communication / Plan
-
Wean dobutamine off
Weaning Impella to removal
I have no objection to metoprolol therapy
Amiodarone loading
Keep I<O
Impression / Plan
-
PCP: None, no health insurance prior to admission
Primary Lawn And Garden Technician: none prior to admission, initial consult Dr Aubrey Hess
Oncology: seen initially by Dr. Caballero
Assessment:
MV CAD s/p CABG x 3 04/01/2025
Presented with SOB, orthopnea 03/26/2025
Acute heart failure with reduced EF, proBNP 1120
Hypertensive emergency
Sinus tachycardia
Elevated troponin, peak 0.087, treated as NSTEMI
SVT
Multivessel coronary artery disease on cath 03/29/2025
MARSHAL peak creatinine 1.5 on admission
Type 2 diabetes, hemoglobin A1c 7.0%, new diagnosis
Hyperlipidemia
Prostate cancer, PSA 1050 with concern for bony metastatic disease on chest CT
Former smoker
NSVT, 16 beat run 03/30/25, 6, 7 beat runs 04/01/2025 (post op)
ECHO 03/26/25: Mildly dilated LV, global hypokinesis EF 27%, G3DD, normal RV, mild to moderate MR, small pericardial effusion
Cardiac catheterization 03/29/2025: Left main: Patent. LAD: Proximal to mid spanning across D1 60% stenosis, mid LAD stenosis spanning across D3 takeoff 50 to 60% stenosis. IFR positive at 0.84. Left circumflex: Mid 50% stenosis otherwise LI.
RCA: 100% chronic total occlusion of mid RCA with [id number] collaterals. HEMODYNAMICS : (mmHg) RA (m) : 4; RV (s/d,m) : 25/3, 5; PA (s/d, m) : 23/14, 17; PCWP (m) : 8; Cardiac Output : 5.41 L/min; Cardiac Index : 2.58 L/min/m-2; Systemic
vascular resistance: 1315 dsc^(-5); Pulmonary vascular resistance: 1.66 baez unit
Plan:
-s/p CABG x 3 (MARY-LAD, GSV -D1, GSV-RPDA) w/ 40 mm AtriClip and 10mm hemashield graft on distal asc aorta, Impella placed 04/01/2025
- Would wean dobutamine as the dobutamine and the metoprolol have some contradictory effects and he seems hemodynamically stable with an Impella in place
-Plan to remove Impella on Saturday, 04/05
-preop THERESA EF 25% w/ global HK, nl RV, mild -mod MR
-post op THERESA LVEF not determined (Impella), RV nl, mild MR
- Continue p.o. amiodarone load. I have no objection to starting metoprolol
-EKG NSR, nonspe ST-T abnl, QTc 482msec, no longer with RBBB
-eventually resume GDMT for HF started prior to surgery, as tolerated. Cost of meds may be an issue due to no medical insurance prior to admission-case mgmt aware and application for medical assistance sent. Pt was not able to aquiles entresto preop
due to hypotension/near syncope and may be too expensive. Farxiga may be too expensive. Was able to tolerated Coreg 6.25 mg bid. Currently on Metoprolol tartrate 12.5 mg bid
-Amio for afib prophylaxis
- For his antiplatelet and oral anticoagulation regimen I would prefer either aspirin and NOAC or Plavix and NOAC and would avoid triple therapy given bleeding risk. It sounds again will be difficult for him to afford NOAC moving forward and he
does have an AtriClip in place. As such then would defer to best antiplatelet regimen per cardiac surgery.
-Patient also with newly diagnosed metastatic prostate cancer and now following with oncology. Started on Casodex this admission and eventual Lupron as outpatient. He will need outpatient PET for staging. Oncology note reviewed by me quotes greater
than 5 year life expectancy. Urology does not feel that biopsy necessary for diagnosis since not stopping antiplatelets for biopsy and comfortable making diagnosis based on PSA, bony mets, and abnormal prostate exam
Progress Note - Lawn And Garden Technician
Subjective
Date of Service: April 04, 2025
Feeling little better today. He is in sinus tachycardia
Objective
Labs:
04/04/25 03:05
Labs
Hgb 6.8 g/dL (13.0-18.0) L* 04/04/25 03:05
Hct 19.8 % (39.0-52.0) L* 04/04/25 03:05
Plt Count 147 10^3/uL (130-400) 04/04/25 03:05
PT 18.2 Sec (11.4-14.6) H 04/01/25 14:07
INR 1.48 04/01/25 14:07
APTT 134.6 Sec (23.4-35.0) H 04/04/25 03:05
Sodium 133 mmol/L (135-145) L 04/04/25 03:05
Potassium 3.9 mmol/L (3.5-5.1) 04/04/25 03:05
BUN 27 mg/dl (9-20) H 04/04/25 03:05
Creatinine 1.0 mg/dL (0.7-1.3) 04/04/25 03:05
Glucose 125 mg/dl (70-99) H 04/04/25 03:05
Vital Signs and I&O:
Vital Signs
Temp Pulse Resp BP Pulse Ox
98.6 F 108 20 115/61 93
04/04/25 10:02 04/04/25 10:02 04/04/25 10:02 04/04/25 10:02 04/04/25 10:02
Vital Signs
Temp Pulse Resp BP Pulse Ox
98.6 F 108 20 115/61 93
04/04/25 10:02 04/04/25 10:02 04/04/25 10:02 04/04/25 10:02 04/04/25 10:02
Intake & Output
04/02/25 04/03/25 04/04/25 04/05/25
06:59 06:59 06:59 06:59
Intake Total 2438.7 / 2504.7 2761.4 / 2824.8 2151.6 / 2202.9 619.9 / 619.9
Output Total 2352 / 2458 1454 / 1529 1999 / 2125 400 / 400
Balance 86.7 / 46.7 1307.4 / 1295.8 151.6 / 77.9 219.9 / 219.9
Physical Exam
Physical Exam
����Physical Exam
���������������������General:��no apparent distress, not acutely ill
���������������������������Neck:��supple. no meningeal signs. normal psoterior pharynx
������������������������
���������������������������Heart:��s1/s2 regular rate and rhythm, no murmur. equal radial pulses.
Right neck Cordis, Impella graft in place, mediastinal tubes noted
��������������������������Lungs: ��no acute respiratory distress. clear bilaterally
����������������������Abdomen:�normal bowel sounds. not tender. no CVAT
��������������������������Neuro:��alert and oriented. no focal neurological deficits
������������������������������Skin: ��no rash
�����������������������Psychiatric:�well kept. interactive and cooperative
�����������������������Extremities:��no edema. no calf tenderness. negative homans. good distal pulses
��
�
[2025-04-04] MEDS: LASIX 40 MG IV (10:50)
[2025-04-04] MEDS: SODIUM BICARBONATE 1025 MEQ INF CATH (12:00)
--- NOTE | 2025-04-04 12:00 | PTCARENOTE ---
pt VSS, OOB in chair. nelson dc'd as ordered, nelson care provided pre removal. V wire insulated. chest PT performed.
[2025-04-04 12:29] LABS: APTT 59.5 Sec (23.4-35.0)
[2025-04-04] MEDS: MUCINEX 1200 MG PO ×2 (12:45→20:00)
[2025-04-04] MEDS: HEPARIN 25000 UNITS/250 ML IV (12:45)
[2025-04-04 12:46] LABS: Glucose - Point of Care 180 mg/dl (70-99)
--- NOTE | 2025-04-04 12:53 | W.PN.INTV ---
Today's Communication / Plan
Recommendations
- Incentive spirometry
- Follow-up H&H, after transfusion
Assessment
-
59-year-old man with no significant past medical history came with shortness of breath. Found to have non-ST elevation myocardial infarction. Systolic cardiomyopathy-subsequently underwent left heart catheterization that showed significant
coronary artery disease. Was recommended for surgical revascularization. Underwent coronary artery bypass on 04/01/2025.
Status post CABG x 3 (MARY-LAD, GSV -D1, GSV-RPDA) w/ 40 mm AtriClip and 10mm hemashield graft on distal asc aorta, Impella placed 04/01/2025
Ischemic cardiomyopathy: Acute heart failure with reduced ejection fraction 27% and significant coronary disease. New diagnosis this admission.
Newly diagnosed prostate cancer with bony metastatic disease
Former smoker
04/04 overview. Patient off dobutamine and Levophed. Currently only on heparin infusion. Received Lasix as well as 2 units packed RBCs. Currently maintaining MAP of 82, saturating 94% on room air, Impella currently at 1.8 L[address] [place]Beck[place] in place
Assessment and plan:
Postoperative day 3
Extubated
Saturating 94% on room air
Sitting in chair
Impella in place
Anemia noted-received 2 units of packed RBCs, lactate dehydrogenase somewhat elevated to 478.
Hemodynamics -PA catheter in place-continue to monitor hemodynamics, off inotropes now
Impella device in place for hemodynamic support, anticipate removal 04/05
Amiodarone drip transition to p.o. amiodarone 200 mg 3 times daily
Follow renal function-currently normal
Celestin urinary output
Continue GDMT per cardiology
Chest tube with no excessive drainage-no air leak.
Chest x-ray reviewed 04/02/2025: No evidence for pneumothorax or fluid collection
Prostate cancer: Oncology and urology following.
Emphysema on CAT scan:
Quit smoking 8 years ago.
No airflow obstruction on spirometry.
No evidence for lung nodules. CT chest on admission 03/26/2025.
Should continue with lung cancer screening if qualifies.
Glycemic control per protocol
DVT prophylaxis when safe from the surgical perspective.
Critical care statement: A total of 45 minutes of critical care time was provided for this patient today. This includes management of unstable vital signs, evaluation of the patient at bedside, reviewing the patient's pertinent medical records
including ventilator settings, arterial blood gases, radiographs, microbiology, laboratory evaluations and discussion with primary team, critical care nursing, and respiratory therapy.
Data reviewed:
CHEST CT 03/26/2025
Examination is negative for pulmonary embolism.
Bilateral pleural effusions. CT findings compatible with predominantly interstitial pulmonary edema pattern, likely on the basis of congestive heart failure.
Dense coronary artery calcifications are present. Please correlate with symptoms of and risk factors for coronary artery disease, with further workup as clinically appropriate..
CT findings highly suggestive of bony metastatic disease, and concern is raised for prostate carcinoma.
Mild to moderate changes of emphysema within the upper lungs.
-
Spirometry 03/30/2025:
FEV1/FVC 74%, FEV1 83%, FVC 86%. No significant airflow obstruction.
Subjective Dataa
Subjective Data
Date of Service:
Date of Service: April 04, 2025
Chief Complaint: Cement Block Maker Follow Up (Status postcoronary bypass)
Subjective:
Patient sitting in chair, in no acute distress.
Review of Systems
Genitourinary: Other (All 14 systems reviewed and negative except as stated above in the history of present illness.)
Objective Data
Data Reviewed
Vital Signs / I&O / Oxygen:
Vital Signs
Temp Pulse Resp BP Pulse Ox
99.0 F 106 20 113/76 93
04/04/25 12:00 04/04/25 12:10 04/04/25 12:00 04/04/25 12:00 04/04/25 12:10
Intake and Output
04/03/25 04/04/25 04/05/25
06:59 06:59 06:59
Intake Total 2761.4 / 2824.8 2151.6 / 2202.9 671.9 / 671.9
Output Total 1454 / 1529 1999 / 212 490 / 490
Balance 1307.4 / 1295.8 151.6 / 77.9 181.9 / 181.9
SaO2 [SIMV] 98
SaO2 93
Nasal Cannula flow liters per 2
minute
Physical Exam
HEENT: Normocephalic
Cardiovascular: Regular Rhythm and Peripheral Edema (1+ bilateral pedal edema)
Respiratory: Clear, Non-Labored Respirations and Chest Tube (No excessive drainage or early)
GI: Soft and Non Distended
Neurology: Awake, Alert and Oriented
Skin: Warm
Labs/Micro/Reports
Lab Data
04/04/25 03:05
Laboratory Results
04/03/25 04/03/25 04/04/25
14:49 20:03 03:05
APTT 80.8 H 109.4 H 134.6 H
04/04/25
12:08
APTT 59.5 H
--- NOTE | 2025-04-04 13:21 | PTCARENOTE ---
pt voided small amount of bloody urine, ELECTRIC VEHICLE ELECTRICIAN aware. + small loose BM, pericare performed. pt ambulated into hallway w/ assistance, OOB in chair.
[2025-04-04] MEDS: NOVOLOG FLEXPEN-MODERATE RESISTANCE 1 UNITS SC (14:13)
[2025-04-04 15:22] LABS: Hematocrit 26.9 % (39.0-52.0); Hemoglobin 9.5 g/dL (13.0-18.0); Mean Corp Hgb Conc. 35.3 g/dL (33.0-37.0); Mean Corpuscular Hgb 28.8 pg (27.0-31.0); Mean Corpuscular Volume 81.5 fL (80.0-94.0); Mean Platelet Volume 9.4 fL (7.4-10.4); Platelet Count 184 10^3/uL (130-400); Red Cell Dist. Width 14.6 % (11.5-14.5); White Blood Cell Count 9.9 10^3/uL (4.8-10.8)
[2025-04-04 15:33] LABS: Lactic Acid 1.2 mmol/L (0.7-2.0)
--- NOTE | 2025-04-04 15:36 | PTCARENOTE ---
pt VSS, OOB in chair. pt voided blood tinged/fruit punch colored urine, OVER THE ROAD DRIVER aware. PVR 641ml, OVER THE ROAD DRIVER aware. pt straight cath'd for 400ml. OOB in chair. IS and acapella encouraged.
[2025-04-04] MEDS: FLOMAX 0.4 MG PO (15:43)
--- NOTE | 2025-04-04 16:22 | PTCARENOTE ---
assumed care of pt, VSS, impella in good position, pt denies pain. Heparin gtt maintained per protocol.
[2025-04-04 16:25] LABS: LDH 499 U/L (120-246)
[2025-04-04 17:24] LABS: Glucose - Point of Care 142 mg/dl (70-99)
[2025-04-04] MEDS: LIPITOR 40 MG PO (17:57)
--- NOTE | 2025-04-04 18:23 | PTCARENOTE ---
pt w PVR 500ml. pt returning to the OR tomorrow for impella removal. CT RON made aware. pt has already been straight cathed today. Instructed to reinsert nelson. Nelson placed without incident.
[2025-04-04 19:37] LABS: APTT 65.5 Sec (23.4-35.0)
[2025-04-04 19:38] LABS: Lactic Acid 0.8 mmol/L (0.7-2.0)
--- NOTE | 2025-04-04 20:00 | PTCARENOTE ---
Assumed care of patient at 1900. Patient found resting in bed at time of assessment. Patient is AOx4, follows commands appropriately, moves all extremities. Patient reports photosensitivity. Lung sounds are clear and equal bilaterally, saO2 95% on
RA, CTx2: medsx2 draining serosanguineous. Patient has occasional productive cough with thick clear sputum. Heart sounds are audible, patient is ST on the monitor with PACs, a vwire is present yet insulated. There is an impella 5.5 device present
exiting through the right chest with three point fixation at P4. patient has normal palapble pulses and trace generalized edema. Patient has active BS present in all four quadrants reports two BMs during the day. Patient has +flatus. There is a
nelson present with hematuria. Patient has sternal incision with aquacell dressing that is CDI. Superior to sternal incision is a R chest incision that has an aquacell dressing that is CDI. Patient has R groin puncture approx with surg adhesive TUBER MACHINE CUTTER.
And RLE incision approx with surg adhesive DANNY. Patient has R IJ cordis with swan@49cm. L radial cadnido present. Patient also has R AC PIV and R FA PIV. Heparin gtt@700 units/hr. Cordis/VIP KVO. Call caraballo within reach.
[2025-04-04] MEDS: SENOKOT-S PO (20:01)
[2025-04-04 20:13] LABS: LDH 445 U/L (120-246)
[2025-04-04] MEDS: TOPROL XL PO (22:04)
[2025-04-05] VITALS (14 sets, daily range): BP systolic 89–127; BP diastolic 58–80; PULSE 111; O2SAT 94–96; BMI 27.7
--- NOTE | 2025-04-05 | PTCARENOTE ---
Patient reassessed. VSS. Remains SR/ST on the monitor with occasional PACs. Patient given tramadolx1 for pain. K repleted with 20 K PO. Calcium repleted with 3g CaGlu IV. 12.5 metoprolol held d/t not meeting admin parameters. Patient oob to commode
without successful BM +flatus. Patient tolerated ambulation. Call caraballo within reach.
[2025-04-05 00:01] LABS: Glucose - Point of Care 120 mg/dl (70-99)
[2025-04-05] MEDS: CALCIUM GLUCONATE 130 MG IV (00:02)
[2025-04-05 03:24] LABS: Ionized Calcium 1.21 mMOL/L (1.15-1.33)
[2025-04-05 03:26] LABS: Hematocrit 23.5 % (39.0-52.0); Hemoglobin 8.4 g/dL (13.0-18.0); Mean Corp Hgb Conc. 35.7 g/dL (33.0-37.0); Mean Corpuscular Hgb 29.2 pg (27.0-31.0); Mean Corpuscular Volume 81.6 fL (80.0-94.0); Mean Platelet Volume 9.1 fL (7.4-10.4); Platelet Count 154 10^3/uL (130-400); Red Blood Cell Count 2.88 10^6/uL (4.70-6.10); Red Cell Dist. Width 14.6 % (11.5-14.5); White Blood Cell Count 8.7 10^3/uL (4.8-10.8)
[2025-04-05 03:41] LABS: APTT 74.7 Sec (23.4-35.0)
[2025-04-05 03:43] LABS: Lactic Acid 0.7 mmol/L (0.7-2.0)
[2025-04-05 03:54] LABS: Blood Urea Nitrogen 26 mg/dl (9-20); Calcium 8.5 mg/dl (8.4-10.2); Carbon Dioxide 23 mmol/L (22-30); Chloride 106 mmol/L (98-107); Estimated Creatinine Clearance 96 ml/min; Glucose 113 mg/dl (70-99); LDH 389 U/L (120-246); Magnesium 1.9 mg/dl (1.6-2.3); Potassium 4.2 mmol/L (3.5-5.1); Sodium 134 mmol/L (135-145); eGFR > 60.00
--- NOTE | 2025-04-05 04:27 | W.PN.CT ---
Today's Communication / Plan
-
Plan:
-No major issues overnight. Hemodynamically and neurologically intact
-Impella is intact @ P4, wean as tolerated, removal today, 04/[address] Cabezas
-Weaned off dobutamine gtt yesterday 04/04. On Heparin gtt for Impella
-Pt went into a-fib with RVR (115) @ 2330 on 04/02, converted to NSR on 04/03 @ 1130. No further a-fib since
-Last CI 2.95
-Nelson d/c'd yesterday 04/05. Required nelson reinsertion yesterday for acute urinary retention
-H/H 8.4/23.5 after 2u PRBC transfusion yesterday for h/h 6.8/19.8, likely d/t hemolysis from Impella, LDH has been elevated
-Monitor mediastinal chest tubes: 2meds , will likely d/c after Impella removal
-Cont. PO Amiodarone, will resume low dose BB now that off Dobutamine, BP has been soft
-Maintain swan, a-line, cordis
-Maintain nelson catheter
-Diabetes education/management f/u
-Wean off of O2
-Encourage use of IS
-OOB into chair
-D/C'd Roxicodone given c/o of visual field changes/photosensitivity
Assessment / Plan
-
- mv-CAD - s/p CABG x 3 (MARY to LAD, GSV to D, GSV to RPDA); ELAA; Aortotomy w/ direct placement of Impella [address] Cabezas on 04/01/25, pod #4
- Pre-THERESA: LVEF ~25% w/ global hypokinesis, RV normal, fzce-ri-epfbnigr MR, no LV or ALANA thrombus
- Post-THERESA: LVEF unable to be determined (Impella), RV normal, mild MR, ALANA excluded
- NSTEMI (0.087)
- Ischemic cardiomyopathy (LVEF 25%)
- Newly diagnosed HFrEF
- Orthopnea
- Moderate bilateral pleural effusion
- Newly diagnosed metastatic prostate CA with bone mets (found on CT scan)
- Family hx of cancer
- HTN
- HLD
- T2DM (new diagnosis with A1C of 7.2)
- Preop MARSHAL
- Former tobacco use (50 pk/yr, quit 8 years ago)
- Acute postop blood loss anemia - s/p 3 pRBC
- Acute postop coagulopathy - s/p 1 unit platelets
- Acute postop atelectasis
- Suspected acute postop pericarditis/+ rub
- 6 beat NSVT 04/01
- Acute postop a-fib
- Acute postop hematuria
- Acute postop hyponatremia
Discussed patient care with: Cardiology, Nursing, Respiratory Therapy, Pharmacy and Care Team
Subjective
-
Date of Service: April 05, 2025
Pt c/o mild incisional pain, lightheadedness/dizziness and photosensitivity has resolved
Objective Data
-
Lab Results
04/05/25 03:17
04/05/25 03:17
PT 18.2 Sec (11.4-14.6) H 04/01/25 14:07
INR 1.48 04/01/25 14:07
APTT 74.7 Sec (23.4-35.0) H 04/05/25 03:16
Vital Signs
Vital Signs
Temp Pulse Resp BP Pulse Ox
98.4 F 104 27 122/80 94
04/05/25 04:00 04/05/25 04:10 04/05/25 04:10 04/05/25 04:00 04/05/25 04:10
CT Intake/Output/Weight
04/04/25 04/04/25 04/05/25
06:59 18:59 06:59
Intake Total 1469.1 / 2202.9 803.9 / 1146.9 343 / 1146.9
Output Total 1025 / 2125 1140 / 2040 900 / 2040
Balance 444.1 / 77.9 -336.1 / -893.1 -557 / -893.1
SaO2: 94
Physical Exam
-
General: Awake, Oriented and AOx3
Cardiovascular: Regular rate & rhythm, No Murmurs, No Rub and No Gallop
Respiratory: Decreased Breath Sounds (at bases, otherwise clear)
Sternum: Stable
Incision: Clean, Dry, Intact and Dressing Intact
Extremities: No Edema
Data Reviewed
-
Lab Results: Results Reviewed
Medications: Active Meds Reviewed
Chest X-Ray: Report Reviewed and Image Reviewed
ECG: Report Reviewed and Image Reviewed
--- NOTE | 2025-04-05 07:00 | PTCARENOTE ---
Patient reassessed. VSS. AM hygiene care provided. AM labs obtained. Patient oob to chair without complications.
--- NOTE | 2025-04-05 07:09 | PN.DE.MGMTRT ---
Insulin Management
- -
04/05/2025: Diabetes Management Follow up
Patient admitted 03/26 with increased difficulty breathing for 2 weeks - new onset CHF. PMH Prostate CA with possibly mets to bone, 50+year kristi smoker. Patient had cardiac cath 03/29 - Multivessel CAD. Prior to admission was taking no medications
for diabetes, A1C 7%, cr 1, eGFR > 60.
Patient is POD # 4 s/p CABG x 3. Patient is awake alert and oriented, able to discuss diabetes care.
Transitioned off glycemic protocol on 04/03, to metformin 500 mg BID.
Pt is currently NPO for anticipated Impella removal later today. Glucose stable and in range, fasting 120, premeal 142 to 180 yesterday.
Will make no changes to current regimen. Cont Metformin 500mg BID. Per CM, pt's MA application will take 30 days for decision.
Will hold off on starting Farxiga at this time
Will cont to follow. Discussed with nurse
Diabetes History
- -
Type of Diabetes: 2 requiring insulin
Pre-Admission Diabetes Regimen
04/05/25
03:17
Creatinine 0.9
Lab Results
Hemoglobin A1c 7.0 % (4.0-5.6) H 03/27/25 03:04
Insulin Pump Settings
IP Diabetes Regimen
04/04/25 04/04/25 04/04/25
08:28 12:44 17:23
Glucose
POC Glucose 149 H 180 H 142 H
04/05/25 04/05/25
00:00 03:17
Glucose 113 H
POC Glucose 120 H
Meal type: Breakfast
Patient Education
[2025-04-05] MEDS: MAGNESIUM OXIDE 500 MG PO ×2 (07:23→20:06)
[2025-04-05] MEDS: PROTONIX 40 MG PO (07:23)
[2025-04-05] MEDS: MUCINEX 1200 MG PO ×2 (07:23→20:06)
[2025-04-05] MEDS: TOPROL XL 12.5 MG PO ×2 (07:23→20:06)
[2025-04-05] MEDS: VITAMIN C 500 MG PO (07:23)
[2025-04-05] MEDS: PACERONE 200 MG PO ×2 (07:24→16:59)
[2025-04-05] MEDS: CASODEX 50 MG PO (07:24)
[2025-04-05] MEDS: GLUCOPHAGE PO ×2 (07:25→08:03)
[2025-04-05] MEDS: NEURONTIN 100 MG PO ×3 (07:25→22:04)
[2025-04-05] MEDS: LOW STRENGTH ASPIRIN 81 MG PO (07:25)
[2025-04-05] MEDS: FEOSOL 325 MG PO (07:25)
[2025-04-05] MEDS: FLOMAX 0.4 MG PO (07:25)
[2025-04-05] MEDS: LIDOCAINE 4% PATCH TOPICAL (07:25)
[2025-04-05] MEDS: SENOKOT-S PO ×2 (07:26→20:06)
[2025-04-05 07:34] LABS: Glucose - Point of Care 121 mg/dl (70-99)
--- NOTE | 2025-04-05 07:41 | W.PN.INTV ---
Today's Communication / Plan
Recommendations
Incentive spirometry
Up OOB as tolerated
Cardiac rehab consult
BG goal 110-140
Once Impella has been removed and patient downgraded to CVICU�telemetry status, then our service will sign off at that time. Please call back with any questions or concerns
Assessment
-
59-year-old man with no significant past medical history came with shortness of breath. Found to have non-ST elevation myocardial infarction. Systolic cardiomyopathy-subsequently underwent left heart catheterization that showed significant
coronary artery disease. Was recommended for surgical revascularization. Underwent coronary artery bypass on 04/01/2025.
Status post CABG x 3 (MARY-LAD, GSV -D1, GSV-RPDA) w/ 40 mm AtriClip and 10mm hemashield graft on distal asc aorta, Impella placed 04/01/2025
Ischemic cardiomyopathy: Acute heart failure with reduced ejection fraction 27% and significant coronary disease. New diagnosis this admission.
Newly diagnosed prostate cancer with bony metastatic disease
Former smoker
Assessment and plan:
Postoperative day 4
Extubated
Saturating 94% on room air
Sitting in chair
Impella in place
Anemia noted-received 2 units of packed RBCs, lactate dehydrogenase somewhat elevated to 478, now 398
Continue postoperative management per CT surgery team
Hemodynamics -PA catheter in place-continue to monitor hemodynamics, off inotropes now
Impella device in place for hemodynamic support, anticipate removal today
Continue PO amio
Follow renal function-currently normal
Celestin urinary output
Continue GDMT per cardiology
Chest tube with no excessive drainage-no air leak.
Chest x-ray reviewed 04/02/2025: No evidence for pneumothorax or fluid collection
Prostate cancer: Oncology and urology following.
Emphysema on CAT scan:
Quit smoking 8 years ago.
No airflow obstruction on spirometry.
No evidence for lung nodules. CT chest on admission 03/26/2025.
Should continue with lung cancer screening if qualifies.
Glycemic control per protocol with goal BG 110-140
DVT prophylaxis when safe from the surgical perspective.
Once Impella has been removed, patient will be downgraded to CVICU�telemetry status. Once downgraded, then our service will sign off at that time. Thank you for allowing us to be involved in the care of this patient. Please call back with any
questions or concerns.
Data reviewed:
CHEST CT 03/26/2025
Examination is negative for pulmonary embolism.
Bilateral pleural effusions. CT findings compatible with predominantly interstitial pulmonary edema pattern, likely on the basis of congestive heart failure.
Dense coronary artery calcifications are present. Please correlate with symptoms of and risk factors for coronary artery disease, with further workup as clinically appropriate..
CT findings highly suggestive of bony metastatic disease, and concern is raised for prostate carcinoma.
Mild to moderate changes of emphysema within the upper lungs.
-
Spirometry 03/30/2025:
FEV1/FVC 74%, FEV1 83%, FVC 86%. No significant airflow obstruction.
Total time spent today was 58 minutes for this encounter. Time includes reviewing laboratory test/imaging results, reviewing pertinent medical records, obtaining and reviewing medical history, performing an appropriate exam, ordering medications,
tests and procedures. Time also includes documentation of this encounter, coordinating patient care and communicating with other healthcare professionals. Total time does not include separately billed tests performed on this date of service.
Subjective Dataa
Subjective Data
Date of Service:
Date of Service: April 05, 2025
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
Subjective:
No issues overnight. Impella to be removed today. No chest pain, SOB, fevers or chills.
Review of Systems
General: Other (Negative unless mentioned above)
Objective Data
Data Reviewed
Vital Signs / I&O / Oxygen:
Vital Signs
Temp Pulse Resp BP Pulse Ox
99.4 F 109 16 115/75 94
04/05/25 07:00 04/05/25 07:00 04/05/25 07:00 04/05/25 05:00 04/05/25 07:00
Intake and Output
04/04/25 04/05/25 04/06/25
06:59 06:59 06:59
Intake Total 2151.6 / 2202.9 1230.9 / 1287.9 57 / 57
Output Total 1999 223 / 2269 40 / 40
Balance 151.6 / 77.9 -999.1 / -982.1
SaO2 [SIMV] 98
SaO2 94
Nasal Cannula flow liters per 2
minute
Physical Exam
General: Comfortable
HEENT: Normocephalic
Cardiovascular: Regular Rhythm and Peripheral Edema (1+ bilateral pedal edema)
Respiratory: Clear, Non-Labored Respirations and Chest Tube (No excessive drainage or early)
GI: Soft and Non Distended
Neurology: Awake, Alert and Oriented
Skin: Warm and Dry
Labs/Micro/Reports
Lab Data
04/05/25 03:17
04/05/25 03:17
Laboratory Results
04/04/25 04/04/25 04/05/25
12:08 19:17 03:16
APTT 59.5 H 65.5 H 74.7 H
[2025-04-05] MEDS: TYLENOL PO ×2 (08:01→13:00)
[2025-04-05] MEDS: BACTROBAN 2% OINTMENT 1 APPLIC NASAL (08:02)
[2025-04-05] MEDS: DESENEX/MITRAZOL/ZEASORB TOPICAL ×2 (08:03→20:07)
[2025-04-05] MEDS: NOVOLOG FLEXPEN-MODERATE RESISTANCE SC ×2 (08:13→11:33)
--- NOTE | 2025-04-05 08:30 | PTCARENOTE ---
Assumed care of patient at 0700. Pt is awake, alert, and oriented. Pt with minimal complaints of sternal pain at this time. Pt remains ST with HR 106. BP 127/76 MAP 91. PA 34/17, CVP 9, CO 7.07, CO 3.40, SVR 973. Impella 5.[address] at 32cm.
Impella at P4. Epicardial V wire in place insulated. Pulses oximetry 94% on room air. Mediastinal chest tubes x2 in place, no sign of air leak or crepitus. Pt currently NPO. Celestin catheter in place draining yellow/blood tinged urine. Celestin care
completed. Midsternal incision and Impella site with post-op dressing in place. Right leg incision approximated and CATTLE DEALER. Right IJ cordis and [place]-Becka catheter in place at 49cm. Left radial Mary intact. Pt remains on Heparin gtt at 700units/hr.
ECHO being completed at bedside.
[2025-04-05 08:50] LABS: Lactic Acid 0.8 mmol/L (0.7-2.0)
--- NOTE | 2025-04-05 09:55 | W.PN.CARDCBS ---
Today's Communication / Plan
-
Impella removal anticipated today by CT surgery
Optimize medical therapy
Supportive postop care
Impression / Plan
-
PCP: None, no health insurance prior to admission
Primary Fashion Adviser: none prior to admission, initial consult Dr Aubrey Hess
Oncology: seen initially by Dr. Caballero
Assessment:
MV CAD s/p CABG x 3 04/01/2025
Presented with SOB, orthopnea 03/26/2025
Acute heart failure with reduced EF, proBNP 1120
Hypertensive emergency
Sinus tachycardia
Elevated troponin, peak 0.087, treated as NSTEMI
SVT
Multivessel coronary artery disease on cath 03/29/2025
MARSHAL peak creatinine 1.5 on admission
Type 2 diabetes, hemoglobin A1c 7.0%, new diagnosis
Hyperlipidemia
Prostate cancer, PSA 1050 with concern for bony metastatic disease on chest CT
Former smoker
NSVT, 16 beat run 03/30/25, 6, 7 beat runs 04/01/2025 (post op)
ECHO 03/26/25: Mildly dilated LV, global hypokinesis EF 27%, G3DD, normal RV, mild to moderate MR, small pericardial effusion
Cardiac catheterization 03/29/2025: Left main: Patent. LAD: Proximal to mid spanning across D1 60% stenosis, mid LAD stenosis spanning across D3 takeoff 50 to 60% stenosis. IFR positive at 0.84. Left circumflex: Mid 50% stenosis otherwise LI.
RCA: 100% chronic total occlusion of mid RCA with hmcm-eq-eveeg collaterals. HEMODYNAMICS : (mmHg) RA (m) : 4; RV (s/d,m) : 25/3, 5; PA (s/d, m) : 23/14, 17; PCWP (m) : 8; Cardiac Output : 5.41 L/min; Cardiac Index : 2.58 L/min/m-2; Systemic
vascular resistance: 1315 dsc^(-5); Pulmonary vascular resistance: 1.66 baez unit
Plan:
Presented with acute hypoxic respiratory distress requiring BiPAP found to have non-STEMI with peak troponin 0.087 and echocardiogram showing new dx dilated cardiomyopathy with an EF estimated 27%.
-s/p CABG x 3 (MARY-LAD, GSV -D1, GSV-RPDA) w/ 40 mm AtriClip and 10mm hemashield graft on distal asc aorta, Impella placed 04/01/2025
-No major events overnight; dobutamine drip weaned off 04/04
-Impella is intact @ P4, wean as tolerated, removal planned today, 04/[address] Cabezas
-preop THERESA EF 25% w/ global HK, nl RV, mild -mod MR
-post op THERESA LVEF not determined (Impella), RV nl, mild MR
-Pt went into a-fib with RVR (115) @ 2330 on 04/02, converted to NSR on 04/03 @ 1130. No further a-fib since
-NSVT, 16 beat run 03/30/25, 6, 7 beat runs 04/01/2025 (post op)
-Continue p.o. amiodarone 200mg TID metoprolol tartrate 12.5mg BID
-IV heparin gtt while has Imprella
-For his antiplatelet and oral anticoagulation regimen I would prefer either aspirin and NOAC or Plavix and NOAC and would avoid triple therapy given bleeding risk. It sounds again will be difficult for him to afford NOAC moving forward and he does
have an AtriClip in place. As such then would defer to best antiplatelet regimen per cardiac surgery.
-CT management per CT surgery
-Eventually resume GDMT for HF started prior to surgery, as tolerated. Cost of meds may be an issue due to no medical insurance prior to admission-case mgmt aware and application for medical assistance sent. Pt was not able to aquiles entresto preop
due to hypotension/near syncope and may be too expensive. Farxiga may be too expensive. Was able to tolerated Coreg 6.25 mg bid. Currently on Metoprolol tartrate 12.5 mg bid
-Repeat echo for EF before D/C afer Impella removed; pending EF may consider Life vest
-Patient also with newly diagnosed metastatic prostate cancer and now following with oncology. Started on Casodex this admission and eventual Lupron as outpatient. He will need outpatient PET for staging. Oncology note reviewed by me quotes greater
than 5 year life expectancy. Urology does not feel that biopsy necessary for diagnosis since not stopping antiplatelets for biopsy and comfortable making diagnosis based on PSA, bony mets, and abnormal prostate exam
Progress Note - Fashion Adviser
Subjective
Date of Service: April 05, 2025
Seen and examined. Overall feels sore but no specific complaints.
Objective
Labs:
04/05/25 03:17
04/05/25 03:17
Labs
Hgb 8.4 g/dL (13.0-18.0) L 04/05/25 03:17
Hct 23.5 % (39.0-52.0) L 04/05/25 03:17
Plt Count 154 10^3/uL (130-400) 04/05/25 03:17
PT 18.2 Sec (11.4-14.6) H 04/01/25 14:07
INR 1.48 04/01/25 14:07
APTT 74.7 Sec (23.4-35.0) H 04/05/25 03:16
Sodium 134 mmol/L (135-145) L 04/05/25 03:17
Potassium 4.2 mmol/L (3.5-5.1) 04/05/25 03:17
BUN 26 mg/dl (9-20) H 04/05/25 03:17
Creatinine 0.9 mg/dL (0.7-1.3) 04/05/25 03:17
Glucose 113 mg/dl (70-99) H 04/05/25 03:17
Vital Signs and I&O:
Vital Signs
Temp Pulse Resp BP Pulse Ox
99 F 109 26 113/74 94
04/05/25 09:00 04/05/25 09:50 04/05/25 09:50 04/05/25 09:00 04/05/25 09:38
Vital Signs
Temp Pulse Resp BP Pulse Ox
99 F 109 26 113/74 94
04/05/25 09:00 04/05/25 09:50 04/05/25 09:50 04/05/25 09:00 04/05/25 09:38
Intake & Output
04/03/25 04/04/25 04/05/25 04/06/25
06:59 06:59 06:59 06:59
Intake Total 2761.4 / 2824.8 2151.6 / 2202.9 1230.9 / 1287.9 141 / 141
Output Total 1454 / 1529 1999 / 2125 2230 / 2270 275 / 275
Balance 1307.4 / 1295.8 151.6 / 77.9 -999.1 / -982.1 -134 / -134
Physical Exam
Physical Exam
GEN: NAD, AAOx3
HEENT: EOMI, MMM
LUNGS: Bronchovesicular breath sounds anteriorly, exam limited with Impella. Positive mediastinal chest tubes
CV: Regular. Positive S1-S2. +Impella
: Distended. Decreased bowel sounds
EXT: No edema B/L
NEURO: Gross non-focal
[2025-04-05 10:03] LABS: LDH 398 U/L (120-246)
--- NOTE | 2025-04-05 11:10 | CM ---
Reviewed chart. Met with Mr. Cabezas to review discharge plans. He states he is feeling well. Prior to admission he resides with his spouse and Gawhfb-jo-pyg in a to story home with five steps to enter. He has a full flight of steps to get to
bedroom/full bathroom. He has a powder room on the first floor. Prior to admission he was independent with ambulation and adls. He does not have any DME in the home. Currently he dos not have any health insurance or prescription plan. Telephone
call to [facility] to check on status of application. Still pending. He has a supportive family and friends who can assist in his care if needed. Medical work-up in in progress. The discharge plan is to return home with his spouse and rfdilr-gv-iup
and a home visit by the Transitional Care Nurse when medically stable.
--- NOTE | 2025-04-05 12:00 | PTCARENOTE ---
Pt with no changes in assessment. Pt remains ST with HR 107. BP 134/60 MAP 79. PA 23/11, CVP 4. Impella remains in place at P4. Pulse oximetry 94% on room air. Mediastinal chest tubes remain unchanged with minimal output. Remains on Heparin gtt per
order. Pt OOB in chair with call caraballo within reach.
[2025-04-05] MEDS: NSS 500 IV (13:00)
--- NOTE | 2025-04-05 13:45 | PTCARENOTE ---
Pt assisted back to bed and transported to CVOR for Impella removal.
--- NOTE | 2025-04-05 14:09 | W.CVOR.SURPR ---
CVOR Surgeon Immed Pre Op
-
I have examined this patient prior to performance of the scheduled procedure.
The patient's condition is unchanged from the time of the dictated/written History and
Physical and the patient is able to undergo the scheduled procedure.
Impella 5.5 Removal
[2025-04-05] MEDS: ANCEF 10 IV ×2 (14:23)
--- NOTE | 2025-04-05 14:42 | W.IMMPOSTOP ---
Addendum entered and electronically signed by Buddy Cabezas MD 04/05/25 15:22:
[id number]
Original Note:
Surgical Immed Post Op Note
-
CARDIAC SURGERY OPERATIVE NOTE:
Preoperative Dx:
LVEF 25%
S/P CABG x 3/ELAA/Elective Impella 5.5 placement on 04/01/2025
Postoperative Dx:
Same
Procedures:
1) Removal of Impella 5.5
2) Mgmt of 10mm Hemashield Graft w/ 4 clips/5-0 prolene
Surgeon:
Buddy Cabezas M.D.
Assistants:
Johnny Agee P.A.-C.; social and human services assistant throughout, closure
Anesthesia:
MAC; Juan Antonio Fontanez M.D.
Complications:
None
Condition:
92 sinus (1.1/0.8); 104/58; 100%
GTTS: none
[2025-04-05 15:19] LABS: Hematocrit 22.6 % (39.0-52.0); Hemoglobin 8.1 g/dL (13.0-18.0); Platelet Count 168 10^3/uL (130-400)
[2025-04-05 15:20] LABS: Glucose - Point of Care 141 mg/dl (70-99)
[2025-04-05 15:21] LABS: Mixed Venous O2 Saturation 58.6 %
[2025-04-05 15:29] LABS: PT 15.5 Sec (11.4-14.6)
--- NOTE | 2025-04-05 15:30 | PTCARENOTE ---
Pt arrived back from CVOR from Impella removal. Pt awake, alert, and oriented. Pt SR with HR 90's. BP 113/47 MAP 66. PA 29/12, CVP 5, CO 6.92, CI 3.33, SVR 705. Pulse oximetry initially 91% on room air, pulse oximetry dropped to 88% placed on 4L
nasal cannula. Mediastinal chest tubes remain in place. Celestin catheter remains in place. Midsternal incision remains covered with post-surgical dressing. Impella site with surgical adhesive, approximated and TECHNICAL ENGINEER. Right IJ swan remains at 49cm. Left
Gleason intact. Pt initially on Levo at 2mcg/min, now off. Pt currently resting in bed. Post-op EKG, labs, and x-ray completed.
[2025-04-05 15:31] LABS: APTT 49.8 Sec (23.4-35.0); B.E. -0.4 mmol/L; HCO3 22.9 mmol/L (21-28); Ionized Calcium 1.13 mMOL/L (1.15-1.33); O2 Saturation % 96.1 % (94-98); PCO2 33 mmHg (35-48); PO2 73 mmHg (83-108); Potassium 4.2 mMOL/L (3.5-5.1); Sodium 130 mMOL/L (136-145); pH 7.45 (7.35-7.45)
[2025-04-05 15:50] LABS: Blood Urea Nitrogen 22 mg/dl (9-20); Estimated Creatinine Clearance 108 ml/min; Glucose 128 mg/dl (70-99); LDH 361 U/L (120-246); Magnesium 1.9 mg/dl (1.6-2.3)
[2025-04-05] MEDS: GLUCOPHAGE 500 MG PO (16:59)
[2025-04-05] MEDS: LIPITOR 40 MG PO (16:59)
--- NOTE | 2025-04-05 17:30 | PTCARENOTE ---
Mediastinal chest tubes d/c'd per order without issue. Right IJ [place]-Becka catheter and [place] d/c'd per order. Pt remains SR/ST with HR 107. BP 101/73 MAP 82. Pulse oximetry 93% on 3L nasal cannula. Pt now OOB to chair eating dinner. Family at
bedside.
[2025-04-05 17:39] LABS: Glucose - Point of Care 152 mg/dl (70-99)
[2025-04-05] MEDS: NOVOLOG FLEXPEN-MODERATE RESISTANCE 1 UNITS SC (17:48)
[2025-04-05 19:16] LABS: Hematocrit 23.1 % (39.0-52.0); Hemoglobin 8.2 g/dL (13.0-18.0); Platelet Count 172 10^3/uL (130-400)
--- NOTE | 2025-04-05 21:00 | PTCARENOTE ---
Assumed care of pt from padmini RN. Walking rounds completed. Pt is AAOx3. Pt assisted from the chair to bed w/ assist x1. Pt sinus tach on the tele monitor. HR 100s. Temporary epicardial v-wire insulated. BP stable. Palpable pulses throughout.
Trace edema. Pt on 3 L NC. POX 96%. Lung sounds diminished in B/L in the bases. Deep breathing and IS encouraged. Abdomen soft/nontender. +BSx4. Pt reports decrease in appetite. Celestin catheter intact and draining yellow urine. All surgical sites
stable. Right IJ cordis and PIV x2 intact. Pt denies pain at this time. See worklist for full nursing assessment and interventions. Call caraballo within reach.
[2025-04-05] MEDS: TYLENOL 1000 MG PO (22:04)
[2025-04-05] MEDS: ANCEF 5 IV (22:04)
[2025-04-05] MEDS: PACERONE 400 MG PO (22:04)
[2025-04-06] VITALS (12 sets, daily range): BP systolic 95–127; BP diastolic 65–76; PULSE 109; O2SAT 94–95; BMI 27.2
--- NOTE | 2025-04-06 00:08 | PTCARENOTE ---
Pt reassessed. No acute changes in assessment. Pt is SR to sinus tach on the tele monitor. HR 90s-100s. BP stable. Pt on 3 L NC. POX 95%. Celestin catheter intact and draining yellow urine. All surgical sites stable. Pt repositioned in bed. Call caraballo
within reach.
--- NOTE | 2025-04-06 03:19 | W.PN.CT ---
Today's Communication / Plan
-
Plan:
-No major issues overnight. Hemodynamically and neurologically intact
-Underwent removal of Impella 5.5 yesterday 04/05/25
-[place], A-line and remaining mediastinal chest tubes removed following impella removal
-Weaned off dobutamine gtt 04/04. Heparin discontinued yesterday
-No further a-fib since the 11 hrs from POD#1 into POD #2. On Amiodarone and BB
-Will likely need oral anticoagulation if further a-fib
-Consider keeping nelson another day, has not been ambulatory, hematuria has resolved. Had urinary retention after removal of nelson on 04/03 requiring reinsertion
-H/H 7.9/23 today, was 8.4/23.5 yesterday. Received 2u PRBCs on 04/04 for h/h 6.8/19.8, likely d/t hemolysis from Impella, LDH has been elevated, as well as hemodiluted, wt up 14 lbs
-Will diurese today
-Diabetes education/management f/u
-Encourage use of IS
-OOB into chair/Ambulate
-D/C'd Roxicodone given c/o of visual field changes/photosensitivity
-Home in 1-2 days
Assessment / Plan
-
- mv-CAD - s/p CABG x 3 (MARY to LAD, GSV to D, GSV to RPDA); ELAA; Aortotomy w/ direct placement of Impella 5.[address] Cabezas on 04/01/25, pod #5
- Pre-THERESA: LVEF ~25% w/ global hypokinesis, RV normal, utmg-pc-pronqniq MR, no LV or ALANA thrombus
- Post-THERESA: LVEF unable to be determined (Impella), RV normal, mild MR, ALANA excluded
- S/P Removal of Impella 5.[address] Cabezas, 04/05/25
- NSTEMI (0.087)
- Ischemic cardiomyopathy (LVEF 25%)
- Newly diagnosed HFrEF
- Orthopnea
- Moderate bilateral pleural effusion
- Newly diagnosed metastatic prostate CA with bone mets (found on CT scan)
- Family hx of cancer
- HTN
- HLD
- T2DM (new diagnosis with A1C of 7.2)
- Preop MARSHAL
- Former tobacco use (50 pk/yr, quit 8 years ago)
- Acute postop blood loss anemia - s/p 3 pRBC
- Acute postop coagulopathy - s/p 1 unit platelets
- Acute postop atelectasis
- Suspected acute postop pericarditis/+ rub
- 6 beat NSVT 04/01
- Acute postop a-fib
- Acute postop hematuria
- Acute postop hyponatremia
Discussed patient care with: Cardiology, Nursing, Respiratory Therapy, Pharmacy and Care Team
Subjective
-
Date of Service: April 06, 2025
Pt c/o mild incisional pain, otherwise feels well
Objective Data
-
PT 15.5 Sec (11.4-14.6) H 04/05/25 15:09
INR 1.20 04/05/25 15:09
APTT 49.8 Sec (23.4-35.0) H 04/05/25 15:09
Vital Signs
Vital Signs
Temp Pulse Resp BP Pulse Ox
98.1 F 96 18 114/67 98
04/06/25 03:08 04/06/25 03:08 04/06/25 03:08 04/06/25 03:08 04/06/25 03:08
CT Intake/Output/Weight
04/05/25 04/05/25 04/06/25
06:59 18:59 06:59
Intake Total 427 / 1287.9 359 / 429 70 / 429
Output Total 1090 / 2270 925 / 1725 800 / 1725
Balance -663 / -982.1 -566 / -1296 -730 / -1296
SaO2: 98 (2L)
Physical Exam
-
General: Awake, Oriented and AOx3
Cardiovascular: Regular rate & rhythm, No Murmurs, No Rub and No Gallop
Respiratory: Decreased Breath Sounds (at bases, otherwise clear)
Sternum: Stable
Incision: Clean, Dry, Intact and Dressing Intact
Extremities: Other (+trace edema)
Data Reviewed
-
Lab Results: Results Reviewed
Medications: Active Meds Reviewed
Chest X-Ray: Report Reviewed and Image Reviewed
ECG: Report Reviewed and Image Reviewed
--- NOTE | 2025-04-06 03:23 | PTCARENOTE ---
No change in assessment. VSS. Celestin catheter intact and draining yellow urine. All surgical sites stable. No c/o pain at this time. Labs drawn and sent. Pt repositioned in bed. Call caraballo within reach.
[2025-04-06 03:35] LABS: Hemoglobin 7.9 g/dL (13.0-18.0); Mean Corp Hgb Conc. 34.3 g/dL (33.0-37.0); Mean Corpuscular Hgb 28.6 pg (27.0-31.0); Mean Corpuscular Volume 83.3 fL (80.0-94.0); Mean Platelet Volume 9.6 fL (7.4-10.4); Platelet Count 178 10^3/uL (130-400); Red Blood Cell Count 2.76 10^6/uL (4.70-6.10); Red Cell Dist. Width 14.7 % (11.5-14.5); White Blood Cell Count 8.4 10^3/uL (4.8-10.8)
[2025-04-06 03:55] LABS: Blood Urea Nitrogen 20 mg/dl (9-20); Calcium 7.9 mg/dl (8.4-10.2); Carbon Dioxide 25 mmol/L (22-30); Chloride 105 mmol/L (98-107); Estimated Creatinine Clearance 108 ml/min; Glucose 103 mg/dl (70-99); Magnesium 1.9 mg/dl (1.6-2.3); Potassium 4.1 mmol/L (3.5-5.1); Sodium 135 mmol/L (135-145); eGFR > 60.00
[2025-04-06] MEDS: ANCEF 5 IV (05:29)
[2025-04-06] MEDS: CALCIUM GLUCONATE 130 MG IV ×2 (05:29→21:00)
[2025-04-06] MEDS: KCL 20 MEQ PO ×2 (05:30→14:19)
[2025-04-06] MEDS: LASIX 40 MG IV ×2 (05:30→14:19)
[2025-04-06] MEDS: TYLENOL 1000 MG PO ×3 (05:30→22:19)
--- NOTE | 2025-04-06 07:39 | W.PN.ANS.POP ---
Anesthesia Post Operative
- Anesthesia Post Op Note
Vital Signs Stable-See Nursing Note: Yes
Airway Patent: Yes
Adequate Pain Control: Yes
Change in Mental Status: No
Current Postoperative Nausea & Vomiting: No
Anesthesia Complications: No
General Anesthetic Recall: No
Unplanned Admission: No
Post Op Hydration Adequate: Yes
[2025-04-06 07:43] LABS: Glucose - Point of Care 137 mg/dl (70-99)
[2025-04-06] MEDS: NOVOLOG FLEXPEN-MODERATE RESISTANCE SC ×3 (07:50→18:06)
[2025-04-06] MEDS: LIDOCAINE 4% PATCH TOPICAL (08:02)
[2025-04-06] MEDS: DESENEX/MITRAZOL/ZEASORB TOPICAL ×3 (08:02→21:06)
[2025-04-06] MEDS: PACERONE 200 MG PO ×2 (08:13→16:13)
[2025-04-06] MEDS: FLOMAX 0.4 MG PO (08:13)
[2025-04-06] MEDS: MUCINEX 1200 MG PO ×2 (08:13→21:02)
[2025-04-06] MEDS: FEOSOL 325 MG PO (08:14)
[2025-04-06] MEDS: NEURONTIN 100 MG PO ×3 (08:14→22:18)
[2025-04-06] MEDS: CASODEX 50 MG PO (08:14)
[2025-04-06] MEDS: PROTONIX 40 MG PO (08:14)
[2025-04-06] MEDS: VITAMIN C 500 MG PO (08:14)
[2025-04-06] MEDS: LOW STRENGTH ASPIRIN 81 MG PO (08:14)
[2025-04-06] MEDS: TOPROL XL 25 MG PO ×2 (08:14→21:03)
[2025-04-06] MEDS: SENOKOT-S 1 TABLET PO ×2 (08:14→21:03)
[2025-04-06] MEDS: GLUCOPHAGE 500 MG PO ×2 (08:14→18:06)
[2025-04-06] MEDS: MAGNESIUM OXIDE 500 MG PO ×2 (08:14→21:02)
--- NOTE | 2025-04-06 08:55 | PTCARENOTE ---
Assumed care of patient at 0700. Pt is awake, alert, and oriented. No complaints of pain at this time. Pt remains ST with HR 113. BP 104/65 MAP 76. Epicardial V wire insulated. Pulse oximetry 94% on room air. Pt continues to utilize IS. Continues to
have productive cough. Pt tolerating PO diet, however continues to have overall poor appetite. Celestin catheter remains in place draining yellow urine. Midsternal incision with post-surgical dressing in place. Right chest incision approximated with
surgical adhesive. Right leg incision approximated and DANNY. Right IJ cordis in place with KVO. Pt currently OOB in chair with call caraballo within reach.
--- NOTE | 2025-04-06 09:09 | PN.DE.MGMTRT ---
Insulin Management
- -
04/06/2025: Diabetes Management Follow up
Patient admitted 03/26 with increased difficulty breathing for 2 weeks - new onset CHF. PMH Prostate CA with possibly mets to bone, 50+year kristi smoker. Patient had cardiac cath 03/29 - Multivessel CAD. Prior to admission was taking no medications
for diabetes, A1C 7%, cr 1, eGFR > 60.
Patient is POD # 5 s/p CABG x 3. Patient is awake alert and oriented, able to discuss diabetes care.
Transitioned off glycemic protocol on 04/03, to metformin 500 mg BID.
Glucose stable and in range, fasting 103, premeal 121 to 152 yesterday.
Will make no changes to current regimen. Cont Metformin 500mg BID. Per CM, pt's [place] application will take 30 days for decision.
Will hold off on starting Farxiga at this time
Will cont to follow. Discussed with nurse
Diabetes History
- -
Type of Diabetes: 2
Pre-Admission Diabetes Regimen
04/05/25 04/06/25
15:09 03:14
Creatinine 0.8 0.8
Lab Results
Hemoglobin A1c 7.0 % (4.0-5.6) H 03/27/25 03:04
Insulin Pump Settings
IP Diabetes Regimen
04/05/25 04/05/25 04/05/25
15:09 15:10 17:37
Glucose 128 H
POC Glucose 141 H 152 H
04/06/25 04/06/25
03:14 07:40
Glucose 103 H
POC Glucose 137 H
Meal type: Breakfast
Meal type: Breakfast
Amount consumed: 100%
Patient Education
--- NOTE | 2025-04-06 11:56 | PTCARENOTE ---
Pt ambulated in hallway with cardiac rehab and again with RN, tolerated well. Pt remains ST with HR 103. BP 107/69 MAP 81. Pulse oximetry 94% on room air.
--- NOTE | 2025-04-06 12:38 | CM ---
Reviewed chart. Met with Mr. Cabezas to review discharge plans. He states he is feeling well and maybe able to go home soon. He states he ambulated in the hallway today. We reviewed a home visit by the Transitional Care Nurse. He is agreeable to
a home visit. Prior to admission he resides with his spouse and ririyn-xw-czk in a two story home with five steps to enter. He has a full flight of steps to get to bedroom/full bathroom. He has a powder room on the first floor. Prior to admission
he was independent with ambulation and adls. He does not have any DME in the home. He currently wright not have any health care insurance. Application in for medical assistance. Medical work-up in progress. The discharge plan is to return home with
his spouse and qrzbjy-cm-qco and a home visit by the Transitional Care Nurse when medically stable.
--- NOTE | 2025-04-06 12:59 | W.PN.CARDCBS ---
Addendum entered and electronically signed by Bunny Wolf, 04/07/25 10:11:
I saw and examined the patient 04/06/2025 10AM
The Fender Repairer's note was reviewed and I agree with the note.
Comment:
Plan:
Cont post op care
GDMT for CM as bp and HR will allow
Remains SR
Original Note:
Today's Communication / Plan
-
continue post op care
consider follow up echo with definity as now post impella removal
GDMT of CM as able
in SR
Impression / Plan
-
PCP: None, no health insurance prior to admission
Primary Money Examiner: none prior to admission, initial consult Dr Aubrey Hess
Oncology: seen initially by Dr. Caballero
Assessment:
MV CAD s/p CABG x 3 04/01/2025
Presented with SOB, orthopnea 03/26/2025
Acute heart failure with reduced EF, proBNP 1120
Hypertensive emergency
Sinus tachycardia
Elevated troponin, peak 0.087, treated as NSTEMI
SVT
Multivessel coronary artery disease on cath 03/29/2025
MARSHAL peak creatinine 1.5 on admission
Type 2 diabetes, hemoglobin A1c 7.0%, new diagnosis
Hyperlipidemia
Prostate cancer, PSA 1050 with concern for bony metastatic disease on chest CT
Former smoker
NSVT, 16 beat run 03/30/25, 6, 7 beat runs 04/01/2025 (post op)
ECHO 03/26/25: Mildly dilated LV, global hypokinesis EF 27%, G3DD, normal RV, mild to moderate MR, small pericardial effusion
Cardiac catheterization 03/29/2025: Left main: Patent. LAD: Proximal to mid spanning across D1 60% stenosis, mid LAD stenosis spanning across D3 takeoff 50 to 60% stenosis. IFR positive at 0.84. Left circumflex: Mid 50% stenosis otherwise LI.
RCA: 100% chronic total occlusion of mid RCA with uaxl-tm-vvjsg collaterals. HEMODYNAMICS : (mmHg) RA (m) : 4; RV (s/d,m) : 25/3, 5; PA (s/d, m) : 23/14, 17; PCWP (m) : 8; Cardiac Output : 5.41 L/min; Cardiac Index : 2.58 L/min/m-2; Systemic
vascular resistance: 1315 dsc^(-5); Pulmonary vascular resistance: 1.66 baez unit
Plan:
Presented with acute hypoxic respiratory distress requiring BiPAP found to have non-STEMI with peak troponin 0.087 and echocardiogram showing new dx dilated cardiomyopathy with an EF estimated 27%.
-s/p CABG x 3 (MARY-LAD, GSV -D1, GSV-RPDA) w/ 40 mm AtriClip and 10mm hemashield graft on distal asc aorta, Impella placed 04/01/2025
-impella removed 04/05
-post op THERESA LVEF not determined (Impella), RV nl, mild MR
-Pt went into a-fib with RVR (115) @ 2330 on 04/02, converted to NSR on 04/03 @ 1130. No further a-fib since
-Continue p.o. amiodarone 200mg TID, toprol 25mg BID
-hgb 7.9. continue asa, plavix. OAC may be cost prohibitive. does have an AtriClip in place
-by echo 04/05/25 with EF 25% with impella in place. GDMT of CM as able. entresto caused hypotension/near syncope preop and also cost prohibitive and SGLT2 inhibitor also cost prohibitive. would consider repeating echo with impella out, d/w CT
surgery. pending EF, consideration for Life vest candidacy
-Patient also with newly diagnosed metastatic prostate cancer and now following with oncology. Started on Casodex this admission and eventual Lupron as outpatient. He will need outpatient PET for staging. Oncology note quoted greater than 5 year
life expectancy. Urology does not feel that biopsy necessary for diagnosis since not stopping antiplatelets for biopsy and comfortable making diagnosis based on PSA, bony mets, and abnormal prostate exam
-remains with nelson catheter in place. void trial in AM.
-continue OOB/IS
-d/w nursing
Progress Note - Money Examiner
Subjective
Date of Service: April 06, 2025
feeling well. reports pain adequately controlled
Objective
Labs:
04/06/25 03:14
04/06/25 03:14
Labs
Hgb 7.9 g/dL (13.0-18.0) L 04/06/25 03:14
Hct 23.0 % (39.0-52.0) L 04/06/25 03:14
Plt Count 178 10^3/uL (130-400) 04/06/25 03:14
PT 15.5 Sec (11.4-14.6) H 04/05/25 15:09
INR 1.20 04/05/25 15:09
APTT 49.8 Sec (23.4-35.0) H 04/05/25 15:09
Sodium 135 mmol/L (135-145) 04/06/25 03:14
Potassium 4.1 mmol/L (3.5-5.1) 04/06/25 03:14
BUN 20 mg/dl (9-20) 04/06/25 03:14
Creatinine 0.8 mg/dL (0.7-1.3) 04/06/25 03:14
Glucose 103 mg/dl (70-99) H 04/06/25 03:14
Vital Signs and I&O:
Vital Signs
Temp Pulse Resp BP Pulse Ox
98.2 F 103 18 107/69 94
04/06/25 11:54 04/06/25 11:54 04/06/25 11:54 04/06/25 11:48 04/06/25 11:54
Vital Signs
Temp Pulse Resp BP Pulse Ox
98.2 F 103 18 107/69 94
04/06/25 11:54 04/06/25 11:54 04/06/25 11:54 04/06/25 11:48 04/06/25 11:54
Intake & Output
04/04/25 04/05/25 04/06/25 04/07/25
07:59 07:59 07:59 07:59
Intake Total 2139.5 / 2160.8 1236.6 / 1263.6 402 / 422
Output Total 2049 / 2079 2145 / 2255 2260 / 2560 620 / 620
Balance 89.5 / 80.8 -908.4 / -991.4 -1858 / -2138 -590 / -590
Physical Exam
Physical Exam
GEN: No distress, awake, alert, oriented x3. sitting in chair
HEENT: supple, anicteric, mmm, eomi
LUNGS: CTA B/L, no wheezes/rales
CV: Reg and tachy, S1/S2, no murmur
ABD: soft, BS+, NT/ND
EXT: No cyanosis, clubbing. trace edema of B/L LE
NEURO: Gross non-focal
SKIN: Warm, pink, dry. No rash. Sternotomy dressing c/d/i
[2025-04-06 13:59] LABS: Glucose - Point of Care 109 mg/dl (70-99)
--- NOTE | 2025-04-06 15:41 | PTCARENOTE ---
04/06/2025 DIABETES EDUCATION CONSULT
I met with Edward and his to review diabetes management. He is newly diagnosed with HbA1c of 7.2%
I educated on physiology of T2D, organ damage, managing with medications, monitoring BG, nutrition, activity, sleep and managing stress. I reinforced signs of hyperglycemia, hypoglycemia and hypoglycemia protocol; BS parameters and recommended HbA1c
goals, glucometer and CGM instructions, glucose tracker, medic alert bracelet and outpatient DSME program. Written material provided.
I educated and reviewed using Contour Next glucometer, member acknowledged understanding with a self demonstration of checking BS. Provided her with a Contour Next sample kit. Mr. Cabezas does not have health insurance at this time, is working on
obtaining. I provided education that glucose testing supplies can he purchased at [employer] without a prescription, and encouraged him to outreach our office for meter demonstration if needed.
I educated and demonstrated on insulin injection technique, timing, and storage. Discussed 70/30 insulin; onset/peak/duration. Discussed normal target glucose ranges and a monitoring schedule preprandial AM and/or bedtime as recommended by MD.
Encouraged patient to follow up with his PCP for post d/c appointment and to monitor medication and blood glucose levels. Provided list of endocrinologists if desired, to contact insurance company to verify in network status. Patient verbalized
understanding.
--- NOTE | 2025-04-06 15:55 | PTCARENOTE ---
04/06/2025 DIABETES EDUCATION CONSULT
I met with Edward and his to review diabetes management. He is newly diagnosed with HbA1c of 7.2%
I educated on physiology of T2D, organ damage, managing with medications, monitoring BG, nutrition, activity, sleep and managing stress. I reinforced signs of hyperglycemia, hypoglycemia and hypoglycemia protocol; BS parameters and recommended HbA1c
goals, glucometer and CGM instructions, glucose tracker, medic alert bracelet and outpatient DSME program. Written material provided.
I educated and reviewed using Contour Next glucometer, member acknowledged understanding with a self demonstration of checking BS. Provided her with a Contour Next sample kit. Mr. Cabezas does not have health insurance at this time, is working on
obtaining. I provided education that glucose testing supplies can he purchased at [facility] without a prescription, and encouraged him to outreach our office for meter demonstration if needed.
I explained mechanism of action for new prescription of Metformin.
Encouraged patient to follow up with his PCP for post d/c appointment and to monitor medication and blood glucose levels. Provided list of endocrinologists if desired, to contact insurance company to verify in network status. Patient verbalized
understanding.
--- NOTE | 2025-04-06 16:15 | PTCARENOTE ---
Pt ambulated with RN without issue, tolerated well. Pt remains ST with HR 103. BP 110/72 MAP 81. Pulse oximetry 96% on room air. Pt received 40mg IV Lasix. Celestin catheter remains in place draining yellow urine.
[2025-04-06] MEDS: LIPITOR 40 MG PO (18:06)
[2025-04-06 18:07] LABS: Glucose - Point of Care 129 mg/dl (70-99)
[2025-04-06] MEDS: LIDOCAINE 4% PATCH 1 PATCH TOPICAL (21:15)
--- NOTE | 2025-04-06 21:30 | PTCARENOTE ---
Report from MUSA Busch. Walking rounds done. Awake, in chair, oriented x 4. Speech clear. Equal strength x 4. Helped to BR to brush teeth, wash face. Assisted back to bed. CHG bath done. Pt on room air. Sats 94-95%. 2L/NC at night. Sats 98-99%. BBS
present. Slightly decreased B bases. CDB and IS encouraged. IS peak 1250 mls. Productive cough. Audible heart tones,. Pt in ST. Meds given as prescribed. See DEC. Normotensive. For pulse and wound assessments, see flowsheet. V wire insulated. Belly
soft, nontender. Had BM today. Celestin to drain. Clear, yellow urine. Ongoing plan of care. HS blood glucose done. Lidocaine patch applied to posterior neck for c/o musculoskeletal pain.
[2025-04-06] MEDS: PACERONE 400 MG PO (22:19)
[2025-04-06 22:28] LABS: Glucose - Point of Care 105 mg/dl (70-99)
[2025-04-07] VITALS (9 sets, daily range): BP systolic 110–127; BP diastolic 68–80; PULSE 98; O2SAT 98–99; BMI 26.8
--- NOTE | 2025-04-07 03:05 | PTCARENOTE ---
VS done. Pt sleeping intermittently. Remains in SR, rate 90's. Normotensive. No c/o pain.
--- NOTE | 2025-04-07 03:23 | W.PN.CT ---
Today's Communication / Plan
-
Plan:
-No major issues overnight. Hemodynamically and neurologically intact
-Underwent removal of Impella 5.5 on 04/05/25
-No further a-fib since the 11 hrs from POD#1 into POD #2. On Amiodarone and BB
-Will likely need oral anticoagulation if further a-fib
-Had postop urinary retention and had nelson reinserted, will d/c nelson this AM and assess voiding trials
-D/C cordis
-H/H stable @ 9.8/28.5. Diuresed 2L/24hrs
-Cont. diuresis
-Will need GDMT for his CM
-Diabetes education/management f/u
-Encourage use of IS
-OOB into chair/Ambulate
-D/C'd Roxicodone given c/o of visual field changes/photosensitivity. Has resolved
-Will need temporary PW cut before d/c home
-Home later today vs tomorrow
Assessment / Plan
-
- mv-CAD - s/p CABG x 3 (MARY to LAD, GSV to D, GSV to RPDA); ELAA; Aortotomy w/ direct placement of Impella [address] Cabezas on 04/01/25, pod #6
- Pre-THERESA: LVEF ~25% w/ global hypokinesis, RV normal, [id number] MR, no LV or ALANA thrombus
- Post-THERESA: LVEF unable to be determined (Impella), RV normal, mild MR, ALANA excluded
- S/P Removal of Impella [address] Cabezas, 04/05/25
- NSTEMI (0.087)
- Ischemic cardiomyopathy (LVEF 25%)
- Newly diagnosed HFrEF
- Orthopnea
- Moderate bilateral pleural effusion
- Newly diagnosed metastatic prostate CA with bone mets (found on CT scan)
- Family hx of cancer
- HTN
- HLD
- T2DM (new diagnosis with A1C of 7.2)
- Preop MARSHAL
- Former tobacco use (50 pk/yr, quit 8 years ago)
- Acute postop blood loss anemia - s/p 3 pRBC
- Acute postop coagulopathy - s/p 1 unit platelets
- Acute postop atelectasis
- Suspected acute postop pericarditis/+ rub
- 6 beat NSVT 04/01
- Acute postop a-fib
- Acute postop hematuria
- Acute postop hyponatremia
Discussed patient care with: Cardiology, Nursing, Respiratory Therapy, Pharmacy and Care Team
Subjective
-
Date of Service: April 07, 2025
Pt c/o mild incisional pain, otherwise feels well
Objective Data
-
PT 15.5 Sec (11.4-14.6) H 04/05/25 15:09
INR 1.20 04/05/25 15:09
APTT 49.8 Sec (23.4-35.0) H 04/05/25 15:09
Vital Signs
Vital Signs
Temp Pulse Resp BP Pulse Ox
98.5 F 97 15 114/68 98
04/07/25 03:04 04/07/25 03:04 04/07/25 03:04 04/07/25 03:04 04/07/25 03:04
CT Intake/Output/Weight
04/06/25 04/06/25 04/07/25
06:59 18:59 06:59
Intake Total 100 / 459 30 / 250 220 / 250
Output Total 1375 / 2300 1295 / 2000 705 / 2000
Balance -1275 / -1841 -1265 / -1750 -485 / -1750
SaO2: 98 (2L)
Physical Exam
-
General: Awake, Oriented and AOx3
Cardiovascular: Regular rate & rhythm, No Murmurs, No Rub and No Gallop
Respiratory: Decreased Breath Sounds (at bases, otherwise clear)
Sternum: Stable
Incision: Clean, Dry, Intact and Dressing Intact
Extremities: Other (+trace edema)
Data Reviewed
-
Lab Results: Results Reviewed
Medications: Active Meds Reviewed
Chest X-Ray: Report Reviewed and Image Reviewed
ECG: Report Reviewed and Image Reviewed
[2025-04-07 05:55] LABS: Blood Urea Nitrogen 22 mg/dl (9-20); Calcium 8.1 mg/dl (8.4-10.2); Carbon Dioxide 26 mmol/L (22-30); Chloride 104 mmol/L (98-107); Estimated Creatinine Clearance 96 ml/min; Glucose 100 mg/dl (70-99); Magnesium 1.7 mg/dl (1.6-2.3); Potassium 3.9 mmol/L (3.5-5.1); Sodium 135 mmol/L (135-145); eGFR > 60.00
[2025-04-07 05:58] LABS: Hematocrit 28.6 % (39.0-52.0); Hemoglobin 9.8 g/dL (13.0-18.0); Mean Corp Hgb Conc. 34.3 g/dL (33.0-37.0); Mean Corpuscular Hgb 28.8 pg (27.0-31.0); Mean Corpuscular Volume 84.1 fL (80.0-94.0); Mean Platelet Volume 8.9 fL (7.4-10.4); Platelet Count 167 10^3/uL (130-400); White Blood Cell Count 6.8 10^3/uL (4.8-10.8)
--- NOTE | 2025-04-07 06:40 | PTCARENOTE ---
Labs drawn and sent. Dr. Cabezas in this am. Fawad d/francisca'ed at 0635. Pt helped up to be weighed, then helped to recliner chair. To give report to Sandie VIGIL.
[2025-04-07] MEDS: TYLENOL 1000 MG PO ×3 (06:48→21:38)
--- NOTE | 2025-04-07 07:42 | PN.DE.MGMTRT ---
Insulin Management
- -
04/07/2025: Diabetes Management Follow up
Patient admitted 03/26 with increased difficulty breathing for 2 weeks - new onset CHF. PMH Prostate CA with possibly mets to bone, 50+year kristi smoker. Patient had cardiac cath 03/29 - Multivessel CAD. Prior to admission was taking no medications
for diabetes, A1C 7%, cr 1, eGFR > 60.
Patient is POD # 6 s/p CABG x 3. Patient is awake alert and oriented, able to discuss diabetes care.
Transitioned off glycemic protocol on 04/03, to metformin 500 mg BID.
Glucose stable and in range, fasting 100, premeal 109 to 129 yesterday.
Cr .9, eGFR > 60.
Will make no changes to current regimen. Cont Metformin 500mg BID. Per CM, pt's MA application will take 30 days for decision.
Will hold off on starting Farxiga at this time
Will cont to follow. Discussed with nurse
Diabetes History
- -
Type of Diabetes: 2
Pre-Admission Diabetes Regimen
04/07/25
05:11
Creatinine 0.9
Lab Results
Hemoglobin A1c 7.0 % (4.0-5.6) H 03/27/25 03:04
Insulin Pump Settings
IP Diabetes Regimen
04/06/25 04/06/25 04/06/25
07:40 13:55 18:05
Glucose
POC Glucose 137 H 109 H 129 H
04/06/25 04/07/25
22:27 05:11
Glucose 100 H
POC Glucose 105 H
Meal type: Breakfast
Amount consumed: 100%
Patient Education
[2025-04-07 08:00] LABS: Glucose - Point of Care 131 mg/dl (70-99)
[2025-04-07] MEDS: NOVOLOG FLEXPEN-MODERATE RESISTANCE SC ×2 (08:03→13:14)
[2025-04-07] MEDS: GLUCOPHAGE 500 MG PO ×2 (08:12→16:43)
[2025-04-07] MEDS: PROTONIX 40 MG PO (08:12)
[2025-04-07] MEDS: TOPROL XL 25 MG PO ×2 (08:12→21:37)
[2025-04-07] MEDS: VITAMIN C 500 MG PO (08:12)
[2025-04-07] MEDS: FEOSOL 325 MG PO (08:12)
[2025-04-07] MEDS: FLOMAX 0.4 MG PO (08:12)
[2025-04-07] MEDS: MAGNESIUM OXIDE 500 MG PO ×2 (08:13→21:36)
[2025-04-07] MEDS: SENOKOT-S 1 TABLET PO (08:13)
[2025-04-07] MEDS: MUCINEX 1200 MG PO ×2 (08:13→21:36)
[2025-04-07] MEDS: NEURONTIN 100 MG PO ×3 (08:13→21:38)
[2025-04-07] MEDS: CASODEX 50 MG PO (08:13)
[2025-04-07] MEDS: PACERONE 200 MG PO ×3 (08:13→21:38)
[2025-04-07] MEDS: LOW STRENGTH ASPIRIN 81 MG PO (08:14)
[2025-04-07] MEDS: LIDOCAINE 4% PATCH 1 PATCH TOPICAL (08:14)
[2025-04-07] MEDS: DESENEX/MITRAZOL/ZEASORB TOPICAL ×2 (08:18→21:36)
[2025-04-07] MEDS: LASIX 40 MG PO (09:13)
[2025-04-07] MEDS: KLOR-CON 20 MEQ PO (09:14)
--- NOTE | 2025-04-07 09:24 | PTCARENOTE ---
Rec'd pt this shift awake and alert. Pt ST on monitor. RA. Pt denies pain, denies sob. AM meds given. Pt ambulating in room without difficulty. See worklist for VS/I and O and assessments.
--- NOTE | 2025-04-07 09:54 | W.PN.CARDCBS ---
Addendum entered and electronically signed by Bunny Wolf DO 04/07/25 10:43:
I saw and examined the patient.
The Director Service's note was reviewed and I agree with the note.
Comment:
Plan:
Remains euvolemic, cont lasix 40 daily
Cont amiodarone
Cont Toprol
Consider anticoagulation with any recurrent aFib
Discussed LifeVest for CM and NSVT, he is considered this.
Discussed consideration for ICD if EF fails to improve post op
Original Note:
Today's Communication / Plan
-
continue amio, toprol
add low dose lisinopril with hold parameters
po lasix 40mg daily
asa, plavix. OAC if recurrence of afib as OP
assess for lifevest given CM and NSVT
will need repeat echo at 90 days to assess EF and determine if needs ICD placement
OP follow up arranged
Impression / Plan
-
PCP: None, no health insurance prior to admission
Primary Chicken Vaccinator: none prior to admission, initial consult Dr Aubrey Hess
Oncology: seen initially by Dr. Caballero
Assessment:
MV CAD s/p CABG x 3 04/01/2025
Presented with SOB, orthopnea 03/26/2025
Acute heart failure with reduced EF, proBNP 1120
Hypertensive emergency
Sinus tachycardia
Elevated troponin, peak 0.087, treated as NSTEMI
SVT
Multivessel coronary artery disease on cath 03/29/2025
MARSHAL peak creatinine 1.5 on admission
Type 2 diabetes, hemoglobin A1c 7.0%, new diagnosis
Hyperlipidemia
Prostate cancer, PSA 1050 with concern for bony metastatic disease on chest CT
Former smoker
NSVT, 16 beat run 03/30/25, 6, 7 beat runs 04/01/2025 (post op)
ECHO 03/26/25: Mildly dilated LV, global hypokinesis EF 27%, G3DD, normal RV, mild to moderate MR, small pericardial effusion
Cardiac catheterization 03/29/2025: Left main: Patent. LAD: Proximal to mid spanning across D1 60% stenosis, mid LAD stenosis spanning across D3 takeoff 50 to 60% stenosis. IFR positive at 0.84. Left circumflex: Mid 50% stenosis otherwise LI.
RCA: 100% chronic total occlusion of mid RCA with caue-mg-qinyc collaterals. HEMODYNAMICS : (mmHg) RA (m) : 4; RV (s/d,m) : 25/3, 5; PA (s/d, m) : 23/14, 17; PCWP (m) : 8; Cardiac Output : 5.41 L/min; Cardiac Index : 2.58 L/min/m-2; Systemic
vascular resistance: 1315 dsc^(-5); Pulmonary vascular resistance: 1.66 baez unit
Plan:
-Presented with acute hypoxic respiratory distress requiring BiPAP found to have non-STEMI with peak troponin 0.087 and echocardiogram showing new dx dilated cardiomyopathy with an EF estimated 27%.
-s/p CABG x 3 (MAYR-LAD, GSV -D1, GSV-RPDA) w/ 40 mm AtriClip and 10mm hemashield graft on distal asc aorta, Impella placed 04/01/2025
-by echo 04/05/25 with EF 25% with impella in place. GDMT of CM as able. entresto caused hypotension/near syncope preop and also cost prohibitive and SGLT2 inhibitor also cost prohibitive. continue toprol and would add low dose lisinopril as BP
tolerates. would consider aldactone as OP.
-impella removed 04/05
-would consider repeating echo with impella out, d/w CT surgery who have opted to defer at this time. also with several brief runs of NSVT overnight - 1 3-beats and 1 8-beats. d/w CT surgery, consider for lifevest upon DC however will need to assess
cost to patient as MA pending which may prove prohibitive.
-Pt went into a-fib with RVR (115) @ 2330 on 04/02, converted to NSR on 04/03 @ 1130. No further a-fib since. if were to have recurrence of afib, would start OAC. he does have an AtriClip in place
-hgb improved to 9.8 on 04/07. continue asa, plavix.
-Continue p.o. amiodarone, toprol upon DC
-continue diuresis with po lasix 40mg daily, to continue upon DC.
-Patient also with newly diagnosed metastatic prostate cancer and now following with oncology. Started on Casodex this admission and eventual Lupron as outpatient. He will need outpatient PET for staging. Oncology note quoted greater than 5 year
life expectancy. Urology does not feel that biopsy necessary for diagnosis since not stopping antiplatelets for biopsy and comfortable making diagnosis based on PSA, bony mets, and abnormal prostate exam
-undergoing void trial this AM
-continue OOB/IS
-for possible DC later today
-OP cardiac follow up and cardiac rehab arranged. will need repeat echo at 90 days to assess EF and determine if needs ICD placement
Progress Note - Chicken Vaccinator
Subjective
Date of Service: April 07, 2025
Continues to improve. voiding trial
Objective
Labs:
04/07/25 05:11
04/07/25 05:11
Labs
Hgb 9.8 g/dL (13.0-18.0) L D 04/07/25 05:11
Hct 28.6 % (39.0-52.0) L 04/07/25 05:11
Plt Count 167 10^3/uL (130-400) 04/07/25 05:11
PT 15.5 Sec (11.4-14.6) H 04/05/25 15:09
INR 1.20 04/05/25 15:09
APTT 49.8 Sec (23.4-35.0) H 04/05/25 15:09
Sodium 135 mmol/L (135-145) 04/07/25 05:11
Potassium 3.9 mmol/L (3.5-5.1) 04/07/25 05:11
BUN 22 mg/dl (9-20) H 04/07/25 05:11
Creatinine 0.9 mg/dL (0.7-1.3) 04/07/25 05:11
Glucose 100 mg/dl (70-99) H 04/07/25 05:11
Vital Signs and I&O:
Vital Signs
Temp Pulse Resp BP Pulse Ox
98.5 F 98 18 119/74 98
04/07/25 08:02 04/07/25 09:30 04/07/25 08:02 04/07/25 09:13 04/07/25 08:02
Vital Signs
Temp Pulse Resp BP Pulse Ox
98.5 F 98 18 119/74 98
04/07/25 08:02 04/07/25 09:30 04/07/25 08:02 04/07/25 09:13 04/07/25 08:02
Intake & Output
04/05/25 04/06/25 04/07/25 04/08/25
07:59 07:59 07:59 07:59
Intake Total 1236.6 / 1263.6 402 / 422 575 / 575 510 / 510
Output Total 2145 / 2255 2260 / 2560 1999 / 1999
Balance -908.4 / -991.4 -1858 / -2138 -1425 / -1425 510 / 510
Physical Exam
Physical Exam
GEN: No distress, awake, alert, oriented x3. sitting in chair
HEENT: supple, anicteric, mmm, eomi
LUNGS: CTA B/L, no wheezes/rales
CV: Reg and tachy, S1/S2, no murmur
ABD: soft, BS+, NT/ND
EXT: No cyanosis, clubbing. 1+ edema of B/L LE
NEURO: Gross non-focal
SKIN: Warm, pink, dry. No rash. Sternotomy dressing c/d/i
[2025-04-07] MEDS: ZESTRIL 2.5 MG PO (10:11)
--- NOTE | 2025-04-07 12:52 | W.[place]-PDMP ---
[place]-PD[place]
-
Checked the [place]- Prescription Drug Monitoring Program website, no red flags identified; safe to proceed with prescription.
[2025-04-07 13:03] LABS: Glucose - Point of Care 107 mg/dl (70-99)
--- NOTE | 2025-04-07 13:20 | PTCARENOTE ---
dillan amaya/francisca'jose luis. wires cut by [facility] [place]. Pt voided without difficulty.
--- NOTE | 2025-04-07 15:41 | W.PN.UPDATE ---
Update Note
Progress Note Update
Patient with non-STEMI, multivessel coronary artery disease and ejection fraction of 25%. He also is having nonsustained ventricular tachycardia on telemetry.
At this point he would be a candidate for LifeVest and we should proceed with LifeVest placement.
Will need to reassess LVEF at > 40 days to assess for candidacy of ICD.
[2025-04-07 17:26] LABS: Glucose - Point of Care 199 mg/dl (70-99)
[2025-04-07] MEDS: NOVOLOG FLEXPEN-MODERATE RESISTANCE 1 UNITS SC (17:27)
[2025-04-07] MEDS: LIPITOR 40 MG PO (17:50)
--- NOTE | 2025-04-07 21:30 | PTCARENOTE ---
Report received from MUSA Hooper. Pt awake, alert, oriented x 4. Speech clear. Equal extremity strength x 4. Pt on room air. Sat 95% sitting in chair. BBS present. Decreased more to L base. CDB and IS encouraged. IS peak 1250. Audible heart tones. Pt
in ST-SR. Meds given as ordered. Normotensive. For pulse and wound assessments, see flowsheets. Belly soft, nontender. Normoactive bs x 4. Pt had 2 BMs on day shift. Pt voids clear, yellow urine in urinal. Up ad kirsten in room. Accuchecks ACHS HS
glucose 100. Ongoing plan of care.
[2025-04-07] MEDS: SENOKOT-S PO (21:37)
[2025-04-07 22:03] LABS: Glucose - Point of Care 100 mg/dl (70-99)
[2025-04-08 02:42] VITALS: BP 117/74
--- NOTE | 2025-04-08 02:45 | PTCARENOTE ---
VS done. See flowsheet. Labs drawn and sent. Pt with 9 beat run VT on monitor at 0141, converting back to SR. ANNEMARIE Baltazar aware.
[2025-04-08 03:20] LABS: Hematocrit 23.7 % (39.0-52.0); Hemoglobin 8.3 g/dL (13.0-18.0); Mean Corpuscular Volume 82.9 fL (80.0-94.0); Mean Platelet Volume 8.9 fL (7.4-10.4); Platelet Count 220 10^3/uL (130-400); Red Blood Cell Count 2.86 10^6/uL (4.70-6.10); Red Cell Dist. Width 14.9 % (11.5-14.5); White Blood Cell Count 8.6 10^3/uL (4.8-10.8)
[2025-04-08 03:21] LABS: Blood Urea Nitrogen 24 mg/dl (9-20); Calcium 8.2 mg/dl (8.4-10.2); Carbon Dioxide 27 mmol/L (22-30); Chloride 104 mmol/L (98-107); Estimated Creatinine Clearance 96 ml/min; Glucose 105 mg/dl (70-99); Magnesium 1.8 mg/dl (1.6-2.3); Potassium 3.8 mmol/L (3.5-5.1); Sodium 137 mmol/L (135-145); eGFR > 60.00
[2025-04-08 06:00] VITALS: BMI 26.7
[2025-04-08 06:05] VITALS: BP 116/74
[2025-04-08] MEDS: TYLENOL 1000 MG PO ×2 (06:06→14:09)
--- NOTE | 2025-04-08 06:28 | PTCARENOTE ---
Labs and EKG done this am. Pt to BR to void clear, yellow urine this am. Weighed on standing scale. Remains in SR. Sats 95% on room air. No c/o pain.
[2025-04-08] MEDS: NOVOLOG FLEXPEN-MODERATE RESISTANCE SC ×2 (07:27→11:56)
[2025-04-08 07:29] LABS: Glucose - Point of Care 118 mg/dl (70-99)
--- NOTE | 2025-04-08 07:40 | W.PN.CT ---
Today's Communication / Plan
-
-pod #7
-in nsr low 90s. Had 9 beat NSVT overnight (SBP 110s-120s -? if able to increase Toprol)
-plans today for Life-vest fitting.
-current meds (ASA, Lipitor, Amio, Toprol XL 25 bid, Lasix 40 po qd, KCL 20 po qd, Lisinopril 2.5 qd, Feosol qd, Mucinex 1200 bid, Flomax, Casodex)
-possible d/c today
-appreciate everyone's input
Assessment / Plan
-
- mv-CAD - s/p CABG x 3 (MARY to LAD, GSV to D, GSV to RPDA); ELAA; Aortotomy w/ direct placement of Impella [address] Cabezas on 04/01/25, pod #7
- Pre-THERESA: LVEF ~25% w/ global hypokinesis, RV normal, [id number] MR, no LV or ALANA thrombus
- Post-THERESA: LVEF unable to be determined (Impella), RV normal, mild MR, ALANA excluded
- S/P Removal of Impella [address] Cabezas, 04/05/25
- NSTEMI (0.087)
- Ischemic cardiomyopathy (LVEF 25%)
- Newly diagnosed HFrEF
- Orthopnea
- Moderate bilateral pleural effusion
- Newly diagnosed metastatic prostate CA with bone mets (found on CT scan)
- Family hx of cancer
- HTN
- HLD
- T2DM (new diagnosis with A1C of 7.2)
- Preop MARSHAL
- Former tobacco use (50 pk/yr, quit 8 years ago)
- Acute postop blood loss anemia - s/p 3 pRBC
- Acute postop coagulopathy - s/p 1 unit platelets
- Acute postop atelectasis
- Suspected acute postop pericarditis/+ rub
- 6 beat NSVT 04/01 and 9 beats on 04/08
- Acute postop a-fib
- Acute postop hematuria
- Acute postop hyponatremia
Discussed patient care with: Nursing and Care Team
Subjective
-
Date of Service: April 08, 2025
Objective Data
-
PT 15.5 Sec (11.4-14.6) H 04/05/25 15:09
INR 1.20 04/05/25 15:09
APTT 49.8 Sec (23.4-35.0) H 04/05/25 15:09
Vital Signs
Vital Signs
Temp Pulse Resp BP Pulse Ox
98.5 F 99 15 112/72 95
04/07/25 21:33 04/07/25 22:00 04/07/25 21:33 04/07/25 21:37 04/07/25 21:33
CT Intake/Output/Weight
04/07/25 04/07/25 04/08/25
06:59 18:59 06:59
Intake Total 545 / 575 1010 / 1010
Output Total 705 / 2000 300 / 900 600 / 900
Balance -160 / -1425 710 / 110 -600 / 110
SaO2: 95
Physical Exam
-
General: Awake, Oriented and AOx3
Cardiovascular: Regular rate & rhythm, No Murmurs, No Rub and No Gallop
Respiratory: Decreased Breath Sounds (at bases, otherwise clear)
Sternum: Stable
Incision: Clean, Dry, Intact and Dressing Intact
Extremities: Other (+trace edema)
Data Reviewed
-
Lab Results: Results Reviewed
Medications: Active Meds Reviewed
Chest X-Ray: Report Reviewed and Image Reviewed
ECG: Report Reviewed and Image Reviewed
--- NOTE | 2025-04-08 07:45 | PN.DE.MGMTRT ---
Insulin Management
- -
04/08/2025: Diabetes Management Follow up
Patient admitted 03/26 with increased difficulty breathing for 2 weeks - new onset CHF. PMH Prostate CA with possibly mets to bone, 50+year kristi smoker. Patient had cardiac cath 03/29 - Multivessel CAD. Prior to admission was taking no medications
for diabetes, A1C 7%, cr 1, eGFR > 60.
Patient is POD # 7 s/p CABG x 3. Patient is awake alert and oriented, able to discuss diabetes care.
Transitioned off glycemic protocol on 04/03, to metformin 500 mg BID.
Glucose stable and in range, fasting 100, premeal 109 to 129 yesterday.
Cr .9, eGFR > 60.
Patient for possible discharge today.
Will make no changes to current regimen. Cont Metformin 500mg BID. Per CM, pt's MA application will take 30 days for decision.
Due to self pay status will not start Farxiga.
Will cont to follow. Discussed with nurse
Diabetes History
- -
Type of Diabetes: 2
Pre-Admission Diabetes Regimen
04/08/25
02:55
Creatinine 0.9
Lab Results
Hemoglobin A1c 7.0 % (4.0-5.6) H 03/27/25 03:04
Insulin Pump Settings
IP Diabetes Regimen
04/07/25 04/07/25 04/07/25
07:59 13:02 17:25
Glucose
POC Glucose 131 H 107 H 199 H
04/07/25 04/08/25 04/08/25
22:01 02:55 07:26
Glucose 105 H
POC Glucose 100 H 118 H
Meal type: Breakfast
Amount consumed: 100%
Patient Education
[2025-04-08 07:55] VITALS: BP 122/74
--- NOTE | 2025-04-08 07:55 | PTCARENOTE ---
Received pt from retail shift leader RN; pt AAOx3 and resting comfortably in chair; NSR on monitor and VSS; PIV x2 patent; Lungs diminished; positive bowel sounds; pt voiding yellow urine; palpable pulses throughout; no edema noted; all surgical sites
C/D/I; see nursing documentation for further details.
[2025-04-08] MEDS: KLOR-CON 20 MEQ PO (07:56)
[2025-04-08] MEDS: PACERONE 200 MG PO (07:56)
[2025-04-08] MEDS: TOPROL XL 25 MG PO (07:56)
[2025-04-08] MEDS: MUCINEX 1200 MG PO (07:57)
[2025-04-08] MEDS: ZESTRIL 2.5 MG PO (07:57)
[2025-04-08] MEDS: NEURONTIN 100 MG PO (07:57)
[2025-04-08] MEDS: LASIX 40 MG PO (07:58)
[2025-04-08] MEDS: VITAMIN C 500 MG PO (07:58)
[2025-04-08] MEDS: LOW STRENGTH ASPIRIN 81 MG PO (07:58)
[2025-04-08] MEDS: MAGNESIUM OXIDE 500 MG PO (07:58)
[2025-04-08] MEDS: CASODEX 50 MG PO (07:58)
[2025-04-08] MEDS: GLUCOPHAGE 500 MG PO (07:59)
[2025-04-08] MEDS: PROTONIX 40 MG PO (07:59)
[2025-04-08] MEDS: FLOMAX 0.4 MG PO (07:59)
[2025-04-08] MEDS: FEOSOL 325 MG PO (07:59)
[2025-04-08] MEDS: DESENEX/MITRAZOL/ZEASORB TOPICAL (08:00)
[2025-04-08] MEDS: SENOKOT-S PO (08:00)
[2025-04-08] MEDS: LIDOCAINE 4% PATCH TOPICAL (08:00)
[2025-04-08] MEDS: PLAVIX 75 MG PO (09:27)
--- NOTE | 2025-04-08 11:07 | W.DCSUMMARY ---
Discharge Summary
Discharge Data
Date of Admission: 03/26/25
Date of Discharge: 04/08/25
-
Pending Results: No
Hospital Course
Primary care physician: None, no health insurance prior to admission
Outpatient mica sizer: None, no health insurance prior to admission, will follow with [facility] upon discharge
Inpatient consultants: Oncology (Raulito Paredes MD), Cardiology (RAJENDRA), Diabetic Nurse Practitioner
Procedures:
1. CABG x 3 (MARY to LAD, GSV to D, GSV to RPDA); ELAA; Aortotomy w/ direct placement of Impella 5.[address] Cabezas on 04/01/25
Primary Diagnosis:
1. Coronary Artery Disease with NSTEMI
Secondary Diagnoses:
1. Ischemic Cardiomyopathy (EF 25%)
2. HFrEF (newly diagnosed)
3. Metastatic prostate Ca with bone mets (found on CT scan)
4. HTN
5. HLD
6. T2DM (newly diagnosed, A1C 7.2%)
7. Former tobacco misuse (50 pk/yr, quit 8 years ago)
HPI: Mr. Edward Cabezas is a 59-year-old male with known PMHx of Prostate Ca with bone metastasis and 96-afwe-oeus history of tobacco misuse who presented to [facility] ED (03/26/25) with complaints of progressive SOB and orthopnea. Upon arrival, "Chantale"Raulito was found to be in acute, hypoxic respiratory failure requiring BiPAP. TTE (03/26/25) reported EF of 27% and mild-moderate MR in which he was diagnosed with ischemic cardiomyopathy. He ruled-in as NSTEMI with peak Troponin of (0.087) secondary
to acute HF. C (03/29/25) showed MVD in which he was referred for CABG. Pre-operative CT chest showed bony mets representing prostate Ca. Oncology was consulted due to metastasis of prostate CA to bones in which he was cleared for surgery and
initiated on Casodex. On 04/01/25, Mr. Cabezas underwent a CABG x 3 with eLAA, and direct placement of Impella 5.[address] Wisam Cabezas. Post-operatively, patient progressed towards discharge on post-operative day 7. He was discharged home on GDMT
for HFrEF and Lifevest with plan for outpatient follow-up with Cardiology.
Hospital course: Mr. Edward Cabezas is a 59-year-old male with known PMHx of Prostate Ca with bone metastasis and [id number] history of tobacco misuse who presented to [facility] ED (03/26/25) with complaints of progressive SOB and orthopnea. Upon
arrival, Mr. Cabezas was found to be in acute, hypoxic respiratory failure requiring BiPAP. TTE (03/26/25) reported EF of 27% and mild-moderate MR in which he was diagnosed with ischemic cardiomyopathy. He ruled-in as NSTEMI with peak Troponin of
(0.087) secondary to acute HF. Cardiology was consulted for further medical management. He was referred for LHC (03/29/25) which showed MVD in which he was referred for CABG. Pre-operative CT chest showed bony mets representing prostate Ca. Oncology
was consulted due to metastasis of prostate CA to bones in which he was cleared for surgery and initiated on Casodex. Pre-operative course was also complicated by MARSHAL with peak Cr of 1.5 (03/26/25) and resolution prior to CVOR. On 04/01/25, Mr. Cabezas "Chantale"underwent a CABG x 3 with eLAA, and direct placement of Impella 5.[address] Wisam Cabezas. �Please see surgeons record for complete dictation of surgery. In progressive fashion, inotropic support, vasopressor support, central lines, chest tubes,
and epicardial pacing wires were discontinued. On postoperative day 4 (04/05/25), Mr. Cabezas returned to CVOR for Impella 5.[address] Cabezas. Please see surgeons dictated note for complete report. An insulin drip was initiated following
surgery and was transitioned to oral agents for newly diagnosed Type 2 Diabetes Mellitus. Diabetic Nurse Practitioner was consulted in which he was initiated on Metformin 500 mg BID. On postoperative day 7, Mr. Cabezas was tolerating his diet,
ambulating within the hallway, and hemodynamically stable for discharge. Pain was well-controlled with use of Tramadol PO PRN. He was 4 lbs above his preoperative weight with a discharge weight of 196.2 lbs and preoperative weight of 192 lbs. He
denied dyspnea while ambulating and was diuresing with plan for outpatient regiment of Lasix 40 mg PO daily. He was recommended to have a follow-up 2-V CXR on Saturday04/12/25 and repeat BMP in 5-days from discharge for assessment of electrolytes on
diuretic. He was discharged home on GDMT for HFrEF and Amiodarone 200 mg BID due to intermittent NSVT. LiveVest was placed with plan to follow-up with Cardiology as outpatient and repeat TTE in 90-days for consideration of ICD pending improvement of
EF. Plavix was initiated post-operatively for NSTEMI and use of saphenous vein graft for CABG. Patient was discharged home with a plan to follow-up with Dr. Cabezas in 4-weeks following surgery. Transitional Care Nursing will follow-up with patient
in 2-3 days following discharge.�He will follow-up with Oncology in 2-4 weeks for his Prostate Ca with bone metastasis. Per Case Management, application for MA has been placed with a 30-day period to determine eligibility. Pending on medical
insurance availability, patient should have a long-term goal to be considered for initiation of Farxiga and transition to Entresto per consulted inpatient team.
Home medication changes:
- See medication discharge list provided below.
Discharge Plan
-
Patient Disposition: Home (Routine Discharge)
Discharge Diagnosis/Procedures: NSTEMI, Coronary Artery Disease s/p CABGx3 (GARCIA-LAD, SVG - D, SVG-PDA) with ALANA clip & Impella 5.[address] Cabezas on 04/01/25
Diet: Low Fat, Low Cholesterol and 2 Gram Sodium
Activity: Other activity
Additional Activity: see below activity instructions
Driving Restrictions: Not until seen by your Dr
Bathing Restrictions: OK to Shower
Blood Work: Repeat BMP in 5-days to asses electrolytes while on diuretic.
Others Tests: CXR (PA&LAT) Saturday04/12/25.
Other Services: Cardiac Rehab
Wound Care: Shower daily. Use soap & water. No lotions, creams or powders on incision area.
Specialty Instructions: Weigh Daily- Call MD for wt gain/loss 3 lbs overnight/5 lbs in 1 week
Activity Restrictions/Additional Instructions:
Please call when ready for Phase II Cardiac Rehab: (MA pending will need coverage for participation)
[facility]
[phone]
ACTIVITY:
-No strenuous activity: no heavy lifting, pushing, pulling anything over 15 pounds for one month
-continue to use stairs as tolerated
DRIVING RESTRICTIONS:
-No driving for one month or until approved by your surgeon
WOUND CARE:
-Shower daily. Use soap & water.
-No lotions, creams or powders on incision area.
DIET:
-continue a low fat/low cholesterol diet.
-IF you are diabetic, continue carb controlled diet.
CARDIAC REHAB:
-Please make appointment to start in 5-6 weeks with your local hospital program. (See Cardiac Rehabilitation Discharge Booklet).
SPECIALTY INSTRUCTIONS:
-Weigh yourself daily. Call your physician for any weight gain/loss of 3 lbs overnight or 5 lbs in one week.
-REPORT any clicking noise or uneven appearance of your sternum to your surgeon immediately.
-If you smoke, you are instructed to quit. The [place] smoking hotline phone number is [phone]
Instructions: *DCA Heart Failure Instructions
Referrals:
CT Transitional Care Nurse [Outside]
Referral Note: The Cardiothoracic Transitional Care Nurse will call you to set up a visit in 1-2 days.
Trini Aguilar PA-C [Specified Professional Personl, Cardiology] - 05/10/25 1:20 pm
NONE,* [Family Provider, Internal Medicine]
Raulito Paredes MD [Active, Hematology / Oncology] - in one to two weeks
Buddy Cabezas MD [Active, Cardiac Surgery] - 04/27/25 2:30 pm
Prescriptions:
New
bicalutamide 50 mg Tablet
50 mg PO DAILY Qty: 30 2RF
tamsulosin 0.4 mg Capsule
0.4 mg PO DAILY Qty: 30 2RF
metformin 500 mg Tablet
500 mg PO BID@0800,1700 Qty: 60 2RF
furosemide 40 mg Tablet
40 mg PO DAILY Qty: 30 0RF
atorvastatin 40 mg Tablet
40 mg PO QPM Qty: 30 2RF
tramadol 50 mg Tablet
See Rx Instructions .ROUTE .COMPLEX PRN (Reason: mild pain, not relieved by Tyl) Qty: 20 0RF
Rx Instructions:
Take half to one tablet as needed for pain.
acetaminophen [Tylenol Extra Strength] 500 mg Tablet
1,000 mg PO Q6HPRN PRN (Reason: fever or pain) Qty: 0 0RF
metoprolol succinate 25 mg Tablet Extended Release 24 Hr
25 mg PO BID Qty: 60 2RF
clopidogrel 75 mg Tablet
75 mg PO DAILY Qty: 30 2RF
aspirin 81 mg Tablet,Chewable
81 mg PO DAILY Qty: 0 0RF
amiodarone 200 mg Tablet
200 mg PO BID Qty: 30 0RF
lisinopril 2.5 mg Tablet
2.5 mg PO DAILY Qty: 30 0RF
Discharge Orders:
Discharge Patient (As Directed); Ordered 04/08/25
Ordered By: Coreen Smyth
Discharge Date and Time
Print Language: QATARI
--- NOTE | 2025-04-08 11:35 | PTCARENOTE ---
Patient received from Carol RN; AAOx3, responds spontaneously to RN and follows commands; Patient with light sensitivity; SR with ST on monitor; Trace B/L LE edema; +2 DP and radial pulses; Productive, occasional cough with clear, thick sputum; SpO2
95-97% on RA; Lungs diminished at left base; Patient had BM this AM; Urinating clear, yellow urine; Surgical sites intact; Patient showered; PIVx2; See nursing documentation for further information
[2025-04-08 11:44] VITALS: BP 104/69
[2025-04-08 11:54] LABS: Glucose - Point of Care 132 mg/dl (70-99)
[2025-04-08 15:07] VITALS: BP 104/66
--- NOTE | 2025-04-08 15:16 | PTCARENOTE ---
Waiting in chair for Life vest [employer] to come with Life vest. VSS. Denies complaint. Assessment unchanged from prior.
--- NOTE | 2025-04-08 17:38 | PTCARENOTE ---
Discharge instructions reviewed with pt and after fully educated on Live Vest by solar sales representative. States understanding and reasons to call doctors office. INTs removed. Telemetry box removed. wheeled to car by RN.
--- NOTE | 2025-04-09 10:17 | W.HF.CON ---
Heart Failure
- LV Function
Left ventricular function study result: LV Ejection fraction </= 35%
Ejection Fraction Percentage: 25
- ARNI
Patient already on ARNI: No
Heart Failure ARNI Not Indicated: LV Ejection Fraction >/= 40%
- ACEI/ARB
Patient already on ACEI/ARB: Yes
- Beta Jessica
Patient already on Evidence Based Beta Jessica: Yes
- Mineralocorticord Receptor Antagonist
Patient already on MRA: No
Heart Failure MRA Not Indicated: LV Ejection Fraction > 40%
- SGLT-2 Inhibitor
Patient already on SGLT-2 Inhibitor: No
Heart Failure SGLT-2 Inhibitor Contraindication: Patient Refusal
- Afib Anticoagulation
Patient already on Anticoagulation for Afib: Yes
- NYHA CHF Classification
NYHA CHF Classification Level: Class III - Symptoms w/ min exertion, interferes w/ nml daily activity
- ACC/AHA Stage
ACC/AHA Stage: Stage C: Symptomatic Heart Failure
== END 2025-04-08 16:30 | disposition home or self-care (01) | DRG 1 ==
LOC: CVICU 10:39
PROVIDERS: Anesthesiology; Clinical Nurse Specialist Acute Care; Hospitalist; Internal Medicine Interventional Cardiology; Nurse Practitioner; Physician Assistant Medical; Registered Nurse; ADMITTING PHYSICIAN Student in an Organized Health Care Education/Training Program; ATTENDING PHYSICIAN Thoracic Surgery (Cardiothoracic Vascular Surgery); CONSULT PHYSICIAN Internal Medicine Cardiovascular Disease; CONSULT PHYSICIAN Internal Medicine Critical Care Medicine; CONSULT PHYSICIAN Internal Medicine Hematology & Oncology; CONSULT PHYSICIAN Specialist; EMERGENCY PHYSICIAN Student in an Organized Health Care Education/Training Program
PROC: 5A09357 Assistance with Respiratory Ventilation, Less than 24 Consecutive Hours, Continuous Positive Airway Pressure (ICD-10-PCS; 2025-03-26)
PROC: B2111ZZ Fluoroscopy of Multiple Coronary Arteries using Low Osmolar Contrast (ICD-10-PCS; 2025-03-29)
PROC: B2151ZZ Fluoroscopy of Left Heart using Low Osmolar Contrast (ICD-10-PCS; 2025-03-29)
PROC: 4A033BC Measurement of Arterial Pressure, Coronary, Percutaneous Approach (ICD-10-PCS; 2025-03-29)
PROC: 4A023N8 Measurement of Cardiac Sampling and Pressure, Bilateral, Percutaneous Approach (ICD-10-PCS; 2025-03-29)
PROC: 02L70CK Occlusion of Left Atrial Appendage with Extraluminal Device, Open Approach (ICD-10-PCS; 2025-04-01)
PROC: 06BP4ZZ Excision of Right Saphenous Vein, Percutaneous Endoscopic Approach (ICD-10-PCS; 2025-04-01)
PROC: 5A0221D Assistance with Cardiac Output using Impeller Pump, Continuous (ICD-10-PCS; 2025-04-01)
PROC: 5A1221Z Performance of Cardiac Output, Continuous (ICD-10-PCS; 2025-04-01)
PROC: 021109W Bypass Coronary Artery, Two Arteries from Aorta with Autologous Venous Tissue, Open Approach (ICD-10-PCS; 2025-04-01)
PROC: X2HX0F9 Insertion of Conduit to Short-term External Heart Assist System into Thoracic Aorta, Ascending, Open Approach, New Technology Group 9 (ICD-10-PCS; 2025-04-01)
PROC: 02100ZC Bypass Coronary Artery, One Artery from Thoracic Artery, Open Approach (ICD-10-PCS; 2025-04-01)
PROC: 30233N1 Transfusion of Nonautologous Red Blood Cells into Peripheral Vein, Percutaneous Approach (ICD-10-PCS; 2025-04-01)
PROC: 30233R1 Transfusion of Nonautologous Platelets into Peripheral Vein, Percutaneous Approach (ICD-10-PCS; 2025-04-01)
PROC: B24BZZ4 Ultrasonography of Heart with Aorta, Transesophageal (ICD-10-PCS; 2025-04-01)
PROC: 02HA0RZ Insertion of Short-term External Heart Assist System into Heart, Open Approach (ICD-10-PCS; 2025-04-01)
PROC: 02PW3RZ Removal of Short-term External Heart Assist System from Thoracic Aorta, Descending, Percutaneous Approach (ICD-10-PCS; 2025-04-05)
DX: I21.4 Non-ST elevation (NSTEMI) myocardial infarction (principal); I50.21 Acute systolic (congestive) heart failure; R57.0 Cardiogenic shock; J96.01 Acute respiratory failure with hypoxia; C79.51 Secondary malignant neoplasm of bone; I16.1 Hypertensive emergency; N17.9 Acute kidney failure, unspecified; D62 Acute posthemorrhagic anemia; D68.9 Coagulation defect, unspecified; I47.20 Ventricular tachycardia, unspecified; J98.11 Atelectasis; I30.8 Other forms of acute pericarditis; E87.1 Hypo-osmolality and hyponatremia; I42.0 Dilated cardiomyopathy; I11.0 Hypertensive heart disease with heart failure; I25.10 Atherosclerotic heart disease of native coronary artery without angina pectoris; C61 Malignant neoplasm of prostate; E11.9 Type 2 diabetes mellitus without complications; I25.5 Ischemic cardiomyopathy; J43.9 Emphysema, unspecified; I34.0 Nonrheumatic mitral (valve) insufficiency; E78.5 Hyperlipidemia, unspecified; R33.8 Other retention of urine; I48.91 Unspecified atrial fibrillation; R31.9 Hematuria, unspecified; Z87.891 Personal history of nicotine dependence
CPT/HCPCS: 93308; 36600; 71045; 71046; 71275; 80048; 80053; 80061; 80076; 81003; 81015; 82330; 82565; 82805; 82810; 82947; 82962; 83036; 83605; 83615; 83735; 83880; 84132; 84302; 84443; 84484; 84520; 85014; 85018; 85025; 85027; 85049; 85379; 85384; 85610; 85730; 86850; 86900; 86901; 86920; 93005; 93306; 93312; 93320; 93325; 93460; 93799; 93880; 93923; 93930; 94002; 94010; 96374; 99152; 99291; C1768; C1769; C1894; G0103; P9016; P9045; P9073; Q9967

== ENCOUNTER → 2025-04-12 12:18 | Outpatient (REF) | payer OTHER, SELFPAY | LOC: RAD 12:18 | PROVIDERS: ATTENDING PHYSICIAN Thoracic Surgery (Cardiothoracic Vascular Surgery); FAMILY PHYSICIAN Family Medicine | DX: N28.9 Disorder of kidney and ureter, unspecified (principal) | CPT/HCPCS: 71046 ==

== ENCOUNTER → 2025-04-30 16:12 | Outpatient (REF) | payer OTHER, SELFPAY ==
[2025-04-30 11:23] LABS: Hematocrit 30.7 % (39.0-52.0); Hemoglobin 10.2 g/dL (13.0-18.0); Mean Corp Hgb Conc. 33.2 g/dL (33.0-37.0); Mean Corpuscular Volume 86.7 fL (80.0-94.0); Nucleated Red Blood Cells % 0 % (-); Platelet Count 223 10^3/uL (130-400); Red Cell Dist. Width 15.3 % (11.5-14.5)
[2025-04-30 11:40] LABS: ALT (SGPT) 19 U/L (0-50); AST (SGOT) 22 U/L (17-59); Albumin 4.7 g/dl (3.5-5.0); Alkaline Phosphatase 642 U/L (38-126); Blood Urea Nitrogen 51 mg/dl (9-20); Calcium 9.3 mg/dl (8.4-10.2); Carbon Dioxide 23 mmol/L (22-30); Chloride 101 mmol/L (98-107); Glucose 120 mg/dl (70-99); Potassium 5.0 mmol/L (3.5-5.1); Sodium 136 mmol/L (135-145); Total Protein 7.6 g/dl (6.3-8.2); eGFR 57.54
[2025-04-30 12:52] LABS: PSA, Total - Diagnostic 278.00 ng/ml (0.0-4.0)
== END ==
LOC: OIDL 16:12
PROVIDERS: ATTENDING PHYSICIAN Internal Medicine Hematology & Oncology
DX: C61 Malignant neoplasm of prostate (principal); C79.51 Secondary malignant neoplasm of bone
CPT/HCPCS: 80053; 84153; 85025

== ENCOUNTER → 2025-06-17 11:10 | Outpatient (REF) | payer MEDICAID, SELFPAY | LOC: HWRCS 11:10 | PROVIDERS: ATTENDING PHYSICIAN Physician Assistant Medical; FAMILY PHYSICIAN Family Medicine | DX: I25.10 Atherosclerotic heart disease of native coronary artery without angina pectoris (principal); I21.4 Non-ST elevation (NSTEMI) myocardial infarction | CPT/HCPCS: 93306 ==

== ENCOUNTER → 2025-07-02 07:00 | Outpatient (REF) | payer OTHER, SELFPAY ==
[2025-07-02 07:20] VITALS: BP 127/70; BP_SYST 62
[2025-07-02 07:26] LABS: Glucose - Point of Care 124 mg/dl (70-99)
[2025-07-02 09:00] VITALS: BP 107/58; BP_SYST 61
[2025-07-02 09:05] VITALS: BP 102/61; BP_SYST 62
[2025-07-02 09:15] VITALS: BP 97/62; BP_SYST 64
[2025-07-02 09:23] VITALS: BP 101/68
== END ==
LOC: RADI 07:00
PROVIDERS: ATTENDING PHYSICIAN Internal Medicine Hematology & Oncology; FAMILY PHYSICIAN Family Medicine
DX: C79.51 Secondary malignant neoplasm of bone (principal); C61 Malignant neoplasm of prostate
CPT/HCPCS: 20225; 77012; 82962; 88307; 88311; 88333; 99152

== ENCOUNTER 2025-08-12 10:03 | Outpatient (RCR) | payer OTHER, SELFPAY ==
[2025-07-20 14:14] LABS: Glucose - Point of Care 118 mg/dl (70-99)
[2025-07-20 15:10] LABS: Glucose - Point of Care 114 mg/dl (70-99)
[2025-07-22 08:36] LABS: Glucose - Point of Care 135 mg/dl (70-99)
[2025-07-22 09:26] LABS: Glucose - Point of Care 98 mg/dl (70-99)
[2025-07-27 08:39] LABS: Glucose - Point of Care 135 mg/dl (70-99)
[2025-07-27 09:34] LABS: Glucose - Point of Care 108 mg/dl (70-99)
[2025-07-29 08:32] LABS: Glucose - Point of Care 133 mg/dl (70-99)
[2025-07-29 09:31] LABS: Glucose - Point of Care 93 mg/dl (70-99)
[2025-08-05 08:34] LABS: Glucose - Point of Care 101 mg/dl (70-99)
[2025-08-05 09:30] LABS: Glucose - Point of Care 114 mg/dl (70-99)
[2025-08-06 11:09] LABS: Glucose - Point of Care 94 mg/dl (70-99)
[2025-08-06 12:06] LABS: Glucose - Point of Care 85 mg/dl (70-99)
== END 2025-08-12 23:59 | disposition home or self-care (01) ==
LOC: CRHB 10:03
PROVIDERS: ATTENDING PHYSICIAN Internal Medicine Cardiovascular Disease; FAMILY PHYSICIAN Family Medicine
DX: I25.10 Atherosclerotic heart disease of native coronary artery without angina pectoris (principal); I48.0 Paroxysmal atrial fibrillation; Z95.1 Presence of aortocoronary bypass graft
CPT/HCPCS: 82962; 93797; 93798

== ENCOUNTER 2025-09-07 09:45 | Outpatient (RCR) | payer OTHER, SELFPAY | END 2025-09-07 23:59 | disposition home or self-care (01) | LOC: CRHB 09:45 | PROVIDERS: ATTENDING PHYSICIAN Internal Medicine Cardiovascular Disease; FAMILY PHYSICIAN Family Medicine | DX: I25.10 Atherosclerotic heart disease of native coronary artery without angina pectoris (principal); I48.0 Paroxysmal atrial fibrillation; Z95.1 Presence of aortocoronary bypass graft | CPT/HCPCS: 93797; 93798; G0422; G0423 ==

== ENCOUNTER 2025-09-21 08:49 | Outpatient (RCR) | payer OTHER, SELFPAY | END 2025-09-21 23:59 | disposition home or self-care (01) | LOC: CRHB 08:49 | PROVIDERS: ATTENDING PHYSICIAN Internal Medicine Cardiovascular Disease; FAMILY PHYSICIAN Family Medicine | DX: Z95.1 Presence of aortocoronary bypass graft (principal); I25.10 Atherosclerotic heart disease of native coronary artery without angina pectoris; I48.0 Paroxysmal atrial fibrillation | CPT/HCPCS: 93797; 93798 ==

== ENCOUNTER 2025-09-27 13:28 | Emergency (ER) | payer OTHER, MEDICAID, SELFPAY ==
[2025-09-27 13:32] VITALS: BP 127/81
--- NOTE | 2025-09-27 14:57 | ED.GENMED ---
History of Present Illness
General
Chief Complaint: Nose Bleed
Source: patient
Exam Limitations: none
Time Seen by Provider: 09/27/25 14:44
Nursing documentation reviewed up to this point in time: agreed with
History of Present Illness
History of Present Illness:
Patient to emergency department for evaluation of a nosebleed. States he blew his nose this morning and bleeding started. He has not been able to stop the bleeding. He is currently taking Plavix. Brought to the emergency department by family for
evaluation. He denies any headache dizziness blurred vision. He does report frequent nosebleeds in the past.
Past History
Past History
ED Past Medical History: CAD and Hypercholesterolemia
ED Past Surgical History: Cardiac
Social History
Tobacco: Smoker
Personal:
Living: with family
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
Review of Systems
Review of Systems
Allergies reviewed?: Yes
All Other Systems: ROS reviewed and negative except as documented in HPI and ROS
Constitutional: Reports no symptoms
EENT: Reports other (Left epistaxis)
Respiratory: Reports no symptoms
Cardiac: Reports no symptoms
ABD/GI: Reports no symptoms
: Reports no symptoms
Musculoskeletal: Reports no symptoms
Skin: Reports no symptoms
Neurological: Reports no symptoms
Psychiatric: Reports no symptoms
Phy Exam
General Physical Exam
General Presentation: well appearing and no apparent distress
General age: appears stated age
General Skin: warm and dry
General Habitus: normal
General Mental: alert
General Hydration: appears well hydrated
ENT Exam
ENT Exam: other (Left epistaxis)
Musculoskeletal Exam
Musculoskeletal Exam: full ROM
Skin Exam
Skin Exam: normal color, warm/dry and no rash
Psychiatric Exam
Psychiatric Exam: normal mood/affect
Course
Orders/Labs/Results
Orders:
Orders
09/27/25 14:51
Oxymetazoline HCl [Afrin Nasal Darwin] 30 sprays .ROUTE .STK-MED ONE
Vital Signs
Initial and Last Documented VS:
Initial Vital Signs
Temp Pulse Resp BP Pulse Ox
98 F 58 18 127/81 99
09/27/25 13:32 09/27/25 13:32 09/27/25 13:32 09/27/25 13:32 09/27/25 13:32
Last Documented Vital Signs
Temp Pulse Resp BP Pulse Ox
98 F 98 20 127/74 99
09/27/25 13:32 09/27/25 15:23 09/27/25 15:23 09/27/25 15:23 09/27/25 15:23
Procedures
Nosebleed
Drug treatment: Lidocaine, Neosynephrine and Epinephrine
Treatment: Silver nitrate cautery
Post treatment bleeding: none- good control
*Pulse Oximetry
SaO2: 99
Oxygen Mode of Delivery: Room air
Patient hypoxic: no
*Critical Care Note
Total Time (30-74mins, 75-104mins- exclusive of procedures): Not Applicable
Update Note
Update Note:
Patient to the emergency department with complaint of spontaneous left-sided nosebleed. Bleeding started after blowing his nose this morning. He has been unable to stop bleeding on own. He is currently maintained on Plavix. Afrin nasal spray
applied to left nostril. Left nostril was then packed with lidocaine and epinephrine soaked cotton. An area of bleeding was noted along the way septum of the left nare. Site was cauterized. Bleeding restarted a short time later. Left nare was
then packed with resolution of bleeding. He was discharged home and will follow-up with ENT. He was given instructions on signs and symptoms to return to the emergency department and he is agreeable to this plan.
ED Attending Note
-
Portions of this chart may have been created with voice recognition software.� Occasional wrong word or��sound alike� substitutions may have occurred due to the inherent limitations of voice recognition software.
Discharge Plan
Departure
Patient Disposition: Home (Routine Discharge)
Date of Disposition: 09/27/25
Time of Disposition: 15:44
Patient with high blood pressure during this ER visit?: No
Condition: Good
Covid-19: Not Applicable
Discharge Problem:
Epistaxis
Instructions: Nosebleeds (DC)
Prescriptions:
No Action
bicalutamide 50 mg Tablet
50 mg PO DAILY Qty: 30 2RF
tamsulosin 0.4 mg Capsule
0.4 mg PO DAILY Qty: 30 2RF
metformin 500 mg Tablet
500 mg PO BID@0800,1700 Qty: 60 2RF
atorvastatin 40 mg Tablet
40 mg PO QPM Qty: 30 2RF
acetaminophen [Tylenol Extra Strength] 500 mg Tablet
1,000 mg PO Q6HPRN PRN (Reason: fever or pain) Qty: 0 0RF
metoprolol succinate 25 mg Tablet Extended Release 24 Hr
25 mg PO BID Qty: 60 2RF
clopidogrel 75 mg Tablet
75 mg PO DAILY Qty: 30 2RF
aspirin 81 mg Tablet,Chewable
81 mg PO DAILY Qty: 0 0RF
amiodarone 200 mg Tablet
200 mg PO BID Qty: 30 0RF
lisinopril 2.5 mg Tablet
2.5 mg PO DAILY Qty: 30 0RF
furosemide 20 mg Tablet
20 mg PO DAILY
Referrals:
Christiano Galvan MD [Active, Otology]
Dejuan Salazar MD [Family Provider, Family Practice]
Activity Restrictions/Additional Instructions:
Return to the emergency department for any bleeding that does not stop after 20 minutes with pressure.
Interventions
Interventions:
*General Assessment Last Done: 09/27/25 13:32
*Neglect/Abuse Screening Last Done: 09/27/25 15:23
*ED COVID-19 Vaccine History Last Done: 09/27/25 15:23
*ED Influenza Vaccine History Last Done: 09/27/25 15:23
[facility] Fall Risk Assessment Tool Last Done: 09/27/25 15:17
*Risk Screen - Suicide (C-SSRS) Last Done: 09/27/25 15:23
*Nursing Disposition Last Done: 09/27/25 15:52
ED-EENT Assessment Last Done: 09/27/25 15:16
Discharge Date and Time
Discharge Date/Time: 09/27/25 16:09
Print Language: CZECH
[2025-09-27 15:23] VITALS: BP 127/74
[2025-09-27 15:25] VITALS: BMI 25.8
== END 2025-09-27 16:09 | disposition home or self-care (01) ==
LOC: EMR 13:28
PROVIDERS: EMERGENCY PHYSICIAN Emergency Medicine; FAMILY PHYSICIAN Family Medicine
DX: R04.0 Epistaxis (principal); E78.00 Pure hypercholesterolemia, unspecified; I25.10 Atherosclerotic heart disease of native coronary artery without angina pectoris; F17.200 Nicotine dependence, unspecified, uncomplicated; Z79.02 Long term (current) use of antithrombotics/antiplatelets
CPT/HCPCS: 30901; 99282

== ENCOUNTER 2025-09-28 12:24 | Emergency (ER) | payer OTHER, SELFPAY ==
[2025-09-28 12:49] VITALS: BP 109/66
[2025-09-28 13:10] LABS: Hematocrit 27.6 % (39.0-52.0); Hemoglobin 9.3 g/dL (13.0-18.0); Mean Corp Hgb Conc. 33.7 g/dL (33.0-37.0); Mean Corpuscular Volume 87.1 fL (80.0-94.0); Nucleated Red Blood Cells % 0.5 % (-); Red Cell Dist. Width 15.1 % (11.5-14.5)
[2025-09-28 13:14] LABS: ALT (SGPT) 14 U/L (0-50); AST (SGOT) 38 U/L (17-59); Albumin 4.6 g/dl (3.5-5.0); Alkaline Phosphatase 1097 U/L (38-126); Blood Urea Nitrogen 26 mg/dl (9-20); Calcium 9.5 mg/dl (8.4-10.2); Carbon Dioxide 25 mmol/L (22-30); Chloride 103 mmol/L (98-107); Glucose 119 mg/dl (70-99); Potassium 4.3 mmol/L (3.5-5.1); Sodium 136 mmol/L (135-145); Total Protein 7.3 g/dl (6.3-8.2); eGFR > 60.00
[2025-09-28 13:20] LABS: INR 1.11; PT 14.4 Sec (11.4-14.6)
[2025-09-28 13:39] LABS: Platelet Count 99 10^3/uL (130-400)
--- NOTE | 2025-09-28 18:03 | ED.GENMED ---
History of Present Illness
General
Chief Complaint: Nose Bleed
Source: patient
Exam Limitations: none
Time Seen by Provider: 09/28/25 17:41
Nursing documentation reviewed up to this point in time: agreed with
History of Present Illness
History of Present Illness:
Note:
CHIEF COMPLAINT(S)
Epistaxis (nosebleed).
HISTORY OF PRESENT ILLNESS
The patient is a 59-year-old male who presented with recurrent nosebleeds. The patient was initially treated at the hospital the previous day, where cauterization was attempted on the bleeding site. However, after returning home, the epistaxis
resumed. This morning, the patient visited again and a nasal plug was placed to control the bleeding. Despite this measure, the patient reports continued bleeding. The patient notes that his nose is particularly sensitive in cold, dry air, and he
has been taking aspirin which may exacerbate the bleeding.
PHYSICAL EXAM
General: Alert, no acute distress.
Skin: Warm, dry.
Head: Normocephalic, atraumatic.
Neck: Supple, trachea midline.
Eye Ears, nose, mouth, and throat: Oral mucosa moist. bleeding right nare
Cardiovascular: Normal peripheral perfusion, No edema.
Respiratory: Respirations are non-labored.
Gastrointestinal: Abdomen nondistended.
Back: Normal range of motion, Normal alignment.
Musculoskeletal: Normal range of motion, normal strength.
Neurological: Alert and oriented to person, place, time, and situation, No focal neurological deficit observed.
Psychiatric: Cooperative, appropriate mood & affect.
PROBLEM LIST
Acute Problem:
- Recurrent epistaxis
CHRONIC MEDICAL CONDITIONS SIGNIFICANTLY AFFECTING CARE
- Use of aspirin
DIFFERENTIAL DIAGNOSIS
The Differential Diagnosis includes, in no particular order and is not limited to:
- Hypertension-related bleeding
- Coagulopathy
- Nasal trauma
- Nasal mucosal dryness due to environmental factors
- Chronic use of medications affecting coagulation like aspirin
- Nasal polyps
- Septal perforation
- Hereditary hemorrhagic telangiectasia
- Leukemia
- Sinus infection
Disposition:
SUMMARY OF ENCOUNTER
The patient presented to the emergency department with recurrent epistaxis originating from the right nasal passage. Initial treatment with silverr nitrate cautery and epinephrine was administered to control bleeding, and additional management
included placing merocel packing. The treatment successfully stabilized the patients condition and achieved hemostasis.
DISPOSITION
Discharge.
ASSESSMENT
Recurrent epistaxis controlled with solar nitric powdery, epinephrine, and nasal packing.
PLAN
The patient is advised to follow up with an ear, nose, and throat (ENT) specialist for continued management and evaluation of the underlying cause of recurrent epistaxis. Instructions to avoid nasal trauma, limit aspirin if possible, and use a
humidifier to reduce nasal dryness in cold environments.
PATIENT EDUCATION AND COUNSELING
The patient was educated on the importance of following up with ENT care, avoiding any activities that could initiate further nasal bleeding, and maintaining a humid environment to prevent nasal dryness. The potential exacerbating role of aspirin in
bleeding was also discussed.
FOLLOW-UP INSTRUCTIONS
The patient should schedule a follow-up appointment with an ENT specialist for further evaluation and management of recurrent epistaxis.
MEDICATION RECONCILIATION
The patient was administered solar nitric powdery and epinephrine in the emergency department.
MEDICAL DECISION MAKING
-Complexity of Data Reviewed: Chronic conditions affecting care include the recurrent epistaxis and use of aspirin. The differential diagnosis includes hypertension-related bleeding, coagulopathy, nasal trauma, nasal mucosal dryness due to
environmental factors, chronic use of medications affecting coagulation like aspirin, nasal polyps, septal perforation, hereditary hemorrhagic telangiectasia, leukemia, and sinus infection.
-Data:
Category 1: Tests and documents were not mentioned in detail; hence, there is no specific lab or imaging data to review.
Category 3: Discussion of management and discharge plan with the patient included recommendation for ENT specialist follow-up for further care.
-Risk: Prescription medication was not prescribed for outpatient use as epistaxis was managed without continued home medication. The risk assessment considered the patients aspirin use, which might exacerbate bleeding, and the need for specialist
follow-up to evaluate possible underlying causes.
DIAGNOSIS
- Epistaxis (Recurrent Nosebleeds) [R04.0].
Past History
Past History
ED Past Medical History: CAD and Hypercholesterolemia
ED Past Surgical History: Cardiac
Social History
Tobacco: Smoker
Personal:
Living: with family
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
Phy Exam
Physical Exam
Physical Exam:
.
Course
Orders/Labs/Results
Orders:
Orders
09/28/25 12:54
Complete Blood Count/With Diff Urgent
Comprehensive Metabolic Panel Urgent
Prothrombin Time Urgent
Abnormal Lab Results
09/28/25
12:54
WBC 4.3 L 10^3/uL
(4.8-10.8)
RBC 3.17 L 10^6/uL
(4.70-6.10)
Hgb 9.3 L g/dL
(13.0-18.0)
Hct 27.6 L %
(39.0-52.0)
RDW 15.1 H %
(11.5-14.5)
Plt Count 99 L 10^3/uL
(130-400)
Abs Immat Gran (auto) 0.1 H 10^3/uL
(0-0.05)
Absolute Lymphs (auto) 1.1 L 10^3/uL
(1.2-3.4)
Immature Gran % 1.9 H %
(0-0.5)
BUN 26 H mg/dl
(9-20)
Glucose 119 H mg/dl
(70-99)
Alkaline Phosphatase 1097 H U/L
(38-126)
09/28/25 12:54
09/28/25 12:54
Vital Signs
Initial and Last Documented VS:
Initial Vital Signs
Temp Pulse Resp BP Pulse Ox
98.8 F 110 17 109/66 100
09/28/25 12:49 09/28/25 12:49 09/28/25 12:49 09/28/25 12:49 09/28/25 12:49
Last Documented Vital Signs
Temp Pulse Resp BP Pulse Ox
98.8 F 110 17 109/66 100
09/28/25 12:49 09/28/25 12:49 09/28/25 12:49 09/28/25 12:49 09/28/25 18:03
Procedures
Nosebleed
Drug treatment: Epinephrine
Treatment: Silver nitrate cautery and Merocel packing
Post treatment bleeding: none- good control
*Pulse Oximetry
SaO2: 100
Oxygen Mode of Delivery: Room air
Patient hypoxic: no
*Critical Care Note
Total Time (30-74mins, 75-104mins- exclusive of procedures): Not Applicable
ED Attending Note
-
Portions of this chart may have been created with voice recognition software.� Occasional wrong word or��sound alike� substitutions may have occurred due to the inherent limitations of voice recognition software.
Discharge Plan
Departure
Patient Disposition: Home (Routine Discharge)
Date of Disposition: 09/28/25
Time of Disposition: 18:16
Patient with high blood pressure during this ER visit?: No
Condition: Good
Discharge Problem:
Acute anterior epistaxis
Instructions: Nosebleeds (DC)
Prescriptions:
No Action
bicalutamide 50 mg Tablet
50 mg PO DAILY Qty: 30 2RF
tamsulosin 0.4 mg Capsule
0.4 mg PO DAILY Qty: 30 2RF
metformin 500 mg Tablet
500 mg PO BID@0800,1700 Qty: 60 2RF
atorvastatin 40 mg Tablet
40 mg PO QPM Qty: 30 2RF
acetaminophen [Tylenol Extra Strength] 500 mg Tablet
1,000 mg PO Q6HPRN PRN (Reason: fever or pain) Qty: 0 0RF
metoprolol succinate 25 mg Tablet Extended Release 24 Hr
25 mg PO BID Qty: 60 2RF
clopidogrel 75 mg Tablet
75 mg PO DAILY Qty: 30 2RF
aspirin 81 mg Tablet,Chewable
81 mg PO DAILY Qty: 0 0RF
amiodarone 200 mg Tablet
200 mg PO BID Qty: 30 0RF
lisinopril 2.5 mg Tablet
2.5 mg PO DAILY Qty: 30 0RF
furosemide 20 mg Tablet
20 mg PO DAILY
Referrals:
NONE,* [Active, Internal Medicine]
Activity Restrictions/Additional Instructions:
follow up with ENT as scheduled. return for any concerns.
Interventions
Interventions:
*General Assessment Last Done: 09/28/25 12:26
*Neglect/Abuse Screening Last Done: 09/28/25 12:26
*ED COVID-19 Vaccine History Last Done: 09/28/25 12:49
*ED Influenza Vaccine History Last Done: 09/28/25 12:49
*Risk Screen - Suicide (C-SSRS) Last Done: 09/28/25 12:26
ED-EENT Assessment Last Done: 09/28/25 16:25
Discharge Date and Time
Print Language: PORTUGUESE
[2025-09-28 18:30] VITALS: BP 122/74
== END 2025-09-28 18:32 | disposition home or self-care (01) ==
LOC: EMR 12:24
PROVIDERS: Physician Assistant Medical; EMERGENCY PHYSICIAN Emergency Medicine; FAMILY PHYSICIAN Family Medicine
DX: R04.0 Epistaxis (principal); I25.10 Atherosclerotic heart disease of native coronary artery without angina pectoris; E78.00 Pure hypercholesterolemia, unspecified; F17.200 Nicotine dependence, unspecified, uncomplicated; Z79.82 Long term (current) use of aspirin
CPT/HCPCS: 30901; 99283; 80053; 85025; 85610